=== PATIENT | female | born 1960 | race Caucasian/White ===

== ENCOUNTER 2016-11-16 14:25 | Inpatient (IN) | payer MEDICARE, MEDICAID ==
[~2016-11-16] VITALS: Ht 167.6 cm; Wt 71.7 kg
[~2016-11-16 14:25] MED LIST: BENZ1TAB7 PO; DOCU-25 PO; FAMO20TA8 PO; HYDR28CR28 TP; HYDR453. TP; PSYL1PAC8 PO
--- NOTE | 2016-11-16 14:46 | NUR ---
DR JO AT BEDSIDE FOR EVAL.
--- NOTE | 2016-11-16 15:05 | NUR ---
BLOOD DRAWN AND SENT TO LAB.
--- NOTE | 2016-11-16 15:10 | NUR ---
UNABLE TO PROVIDE URINE SAMPLE.
[2016-11-16 15:15] LABS: BASOPHILS # (AUTO) 0.1 /CMM (0.0-0.2); BASOPHILS % (AUTO) 0.9 % (0.0-2.0); EOSINOPHILS % (AUTO) 0.5 % (0.0-6.0); HEMATOCRIT 42 % (33-45); HEMOGLOBIN 13.8 g/dL (11.5-14.8); LYMPHOCYTES # (AUTO) 2.6 /CMM (0.8-4.8); LYMPHOCYTES % (AUTO) 27.6 % (20.0-44.0); MEAN CORPUSCULAR HEMOGLOBIN 29 PG (26.0-33.0); MEAN CORPUSCULAR HGB CONC 33 g/dl (31.0-36.0); MEAN CORPUSCULAR VOLUME 88 fL (82-100); MONOCYTES # (AUTO) 1.2 /CMM (0.1-1.30); MONOCYTES % (AUTO) 12.7 % (2.0-12.0); NEUTROPHILS # (AUTO) 5.6 /CMM (1.8-8.9); NEUTROPHILS % (AUTO) 58.3 % (43.0-81.0); PLATELET COUNT (AUTO) 242 /CMM (150-450); RDW COEFFICIENT OF VARIATION 13.1 (11.5-15.0); RED BLOOD CELL COUNT(AUTO) 4.76 MIL/uL (4.0-5.2); WHITE BLOOD COUNT (AUTO) 9.5 K/uL (4.3-11.0)
[2016-11-16 15:24] LABS: CALCIUM, SERUM 9.7 mg/dL (8.5-10.1); CARBON DIOXIDE 22 mmol/L (21-32); CHLORIDE 103 mmol/L (98-107); CREATININE 0.9 mg/dL (0.6-1.3); GFR 65 mL/min (>60); GLUCOSE 97 mg/dL (74-106); POTASSIUM 3.8 mmol/L (3.5-5.1); SODIUM SERUM 141 mmol/L (136-145); UREA NITROGEN, BLOOD 24 mg/dL (7-18)
[2016-11-16 15:29] LABS: ALANINE AMINOTRANSFERASE 77 U/L (12-78); ALBUMIN 4.4 g/dL (3.4-5.0); ALKALINE PHOSPHATASE 84 U/L (46-116); ASPARTATE AMINOTRANSFERASE 46 U/L (15-37); BILIRUBIN,DIRECT 0.2 mg/dL (0.0-0.2); BILIRUBIN,TOTAL 0.9 mg/dL (0.2-1.0); SALICYLATE 2.8 mg/dL (2.8-20.0); TOTAL PROTEIN, SERUM 8.4 g/dL (6.4-8.2)
--- NOTE | 2016-11-16 15:29 | NUR ---
CALLED NURSING SUP. FOR GPS BED
[2016-11-16] MEDS ORDERED: LORAZEPAM INJ 2 MG/ML VIAL IM ONE (15:30)
[2016-11-16] MEDS ORDERED: HALOPERIDOL LACTATE INJ 5 MG/ML VIAL IM ONE (15:30)
[2016-11-16] MEDS ORDERED: diphenhydrAMINE HCL 50 MG/ML VIAL IM ONE (15:30)
[2016-11-16 15:31] LABS: ACETAMINOPHEN 0 ug/ml (10-30); ALCOHOL, BLOOD < 3 mg/dL (0-0)
--- NOTE | 2016-11-16 15:55 | NUR ---
REPORT GIVEN TO EDWARDO. PT AWAITING TRANSFER TO FLOOR.
[2016-11-16 16:01] LABS: APPEARANCE,URINE Slightly Cloudy (CLEAR); BLOOD, URINE Negative Ery/uL (NEGATIVE); COLOR,URINE Dark (YELLOW); KETONES,URINE 15 (NEGATIVE); LEUKOCYTE ESTERASE ,URINE Negative (NEGATIVE); NITRITE, URINE Negative (NEGATIVE); PROTEIN,URINE Trace mg/dl (NEGATIVE); UGLUCOSE Negative (NEGATIVE); UROBILINOGEN,URINE 0.2 EU/dL (0.2)
[2016-11-16 16:02] LABS: BILIRUBIN,URINE SMALL (NEGATIVE)
[2016-11-16 16:05] LABS: ADD URINE CULTURE NO; BACTERIA,URINE Few /HPF (None Seen); RBC,URINE 0-2 /HPF (0-2); SQUAMOUS EPITHELIAL CELL,UR Few /HPF (None Seen)
[2016-11-16 16:12] LABS: CANNABINOID, URINE NEGATIVE (NEGATIVE); PHENCYCLIDINE SCREEN,URINE NEGATIVE (NEGATIVE)
[2016-11-16] MEDS ORDERED: THIO10TA PO (16:16)
[2016-11-16] MEDS ORDERED: LITH300T3 PO (16:16)
--- NOTE | 2016-11-16 17:20 | NUR ---
GPS RN NOTE: PT 56 Y/O FEMALE ADMITTED ON 5150 FOR DTS,GD PER HOLD PATIENT BROUGHT IN ER FOR EVAL CO NON COMPLIANT FOR 2 MONTHS PT SUICIDAL PATIENT STATED"I WANT TO JUMP OFF A BRIDGE LAPD WENT TO [facility] APARTMENT WHEN SHE TRIED USING KNIFE TO FIX HER SHOULDERS " PER F/F ASSESSMENT PATIENT DELUSIONAL, DISORGANIZED NOT MAKING SENSE ,ADMITTING SI TO JUMP OFF THE BRIDGE, DR GANDHI AND DR DE LA TORRE NOTIFIED WITH ORDERS, PATIENT APPEARANCE UNKEPT NEEDS SHOWER, WILL INDORSE TO INCOMING SHIFT TR FOR COMPLETION AND CONTINUATION OF CARE
[2016-11-16] MEDS ORDERED: ACETAMINOPHEN 325 MG TABLET PO PRN (17:30)
[2016-11-16] MEDS ORDERED: MAG HYDROX/AL HYDROX/SIMETH 30 ML UDC PO PRN (17:30)
[2016-11-16 17:38] VITALS: BP 136/75
[2016-11-16 20:25] VITALS: BP 99/70
[2016-11-16 20:27] VITALS: BP 141/80
[2016-11-16 20:29] VITALS: BP 141/76
[2016-11-17 08:00] VITALS: BP 96/61
[2016-11-17] MEDS: DOCUSATE SODIUM 100 MG CAPSULE PO SCH ×2 (08:16→17:04)
[2016-11-17 08:25] LABS: ALBUMIN 4.1 g/dL (3.4-5.0); BILIRUBIN,TOTAL 1.1 mg/dL (0.2-1.0); CALCIUM, SERUM 8.9 mg/dL (8.5-10.1); CREATININE 0.8 mg/dL (0.6-1.3); POTASSIUM 4.2 mmol/L (3.5-5.1)
[2016-11-17] MEDS ORDERED: THIORIDAZINE HCL PO SCH (09:00)
--- NOTE | 2016-11-17 11:30 | NUR ---
[id number]: NOTIFIED QUALITY IMPROVEMENT COORDINATOR NIKKI DE LA TORRE ABOUT LAB RESULTS: CO2= 18, ANION GAP=23, BUN=23, TOTAL BILIRUBIN=1.1, AST= 64, ALT= 93, LDL CHOLESTEROL MEASRD= 129, UR SPECIFIC GRAVITY >1.030, URINE BILIRUBIN=SMALL, URINE WBC= 3-5, LITHIUM= , 0.20. NO NEW ORDERS GIVEN AT THIS TIME
--- NOTE | 2016-11-17 15:27 | NUR ---
Initial Discharge Plan: Patient lives at home alone [address] [address].([phone]). Patient wants to return home upon discharge. SW spoke to patient's Ex-brother in law Cristiano Verma ([phone]) who stated that she had been living with him and patient's sister and than patient got her section 8 housing and got her own apartment. SW will follow-up with MD and patient and help form a safe and proper discharge.
[2016-11-17] MEDS ORDERED: QUETIAPINE FUMARATE 25 MG TABLET PO PRN (16:30)
[2016-11-17 17:28] VITALS: BP 110/64
--- NOTE | 2016-11-17 18:31 | NUR ---
[id number]: NOTIFIED DR. GANDHI ABOUT EKG RESULTS. PENDING RETURN PHONE CALL.
[2016-11-17 20:07] VITALS: BP 125/78
--- NOTE | 2016-11-17 20:17 | NUR ---
GPS RN NOTE: SPOKE TO DR. GANDHI AND NOTIFIED HER ABOUT THE RESULT OF THE EKG. NO NEW ORDER RECEIVED NOTED.
[2016-11-17] MEDS ORDERED: LITHIUM CARBONATE (300 MG CAP) 300 MG CAPSULE PO SCH (21:00)
[2016-11-17] MEDS: LITHIUM CARBONATE (300 MG CAP) 300 MG CAPSULE PO SCH (21:34)
[2016-11-17] MEDS ORDERED: QUETIAPINE FUMARATE 25 MG TABLET PO SCH (22:00)
[2016-11-18 07:48] LABS: ALBUMIN 3.9 g/dL (3.4-5.0); BILIRUBIN,DIRECT 0.1 mg/dL (0.0-0.2); BILIRUBIN,TOTAL 0.9 mg/dL (0.2-1.0); CREATININE 0.7 mg/dL (0.6-1.3); POTASSIUM 3.5 mmol/L (3.5-5.1); TOTAL PROTEIN, SERUM 7.6 g/dL (6.4-8.2)
[2016-11-18 08:00] VITALS: BP 109/73
[2016-11-18] MEDS: LITHIUM CARBONATE (300 MG CAP) 300 MG CAPSULE PO SCH ×2 (08:19→09:00)
[2016-11-18] MEDS: DOCUSATE SODIUM 100 MG CAPSULE PO SCH ×3 (08:19→16:34)
[2016-11-18] MEDS: OLANZAPINE 5 MG/TAB.RAPDIS PO SCH ×2 (13:26→16:31)
--- NOTE | 2016-11-18 14:20 | NUR ---
I have reviewed patient's psychosocial assessment and I concur with the information provided. No changes are necessary. Dodie Jordan, [facility] [id number] Addendum: 11/18/16 at 1421 by DODIE JORDAN SW Amended: Links added.
[2016-11-18 16:00] VITALS: BP 110/66
--- NOTE | 2016-11-18 16:31 | NUR ---
Derrick received a voicemail from [facility] [phone] who wanted to discuss pt's condition and discharge planning. DERRICK will follow up tomorrow. Addendum: 11/19/16 at 1527 by DAVE BETANCUR DERRICK [facility] Hipolito [phone] who wanted an update regarding pt's discharge. DERRICK notified him that a discharge date has not been set yet. Will follow up
[2016-11-18] MEDS ORDERED: OLANZAPINE 5 MG/TAB.RAPDIS PO SCH (17:00)
[2016-11-18 20:00] VITALS: BP 109/95
[2016-11-19 08:00] VITALS: BP 119/84
[2016-11-19] MEDS: DOCUSATE SODIUM 100 MG CAPSULE PO SCH ×2 (08:13→16:28)
[2016-11-19] MEDS ORDERED: LITHIUM CARBONATE (300 MG CAP) 300 MG CAPSULE PO SCH (09:00)
[2016-11-19] MEDS: OLANZAPINE 5 MG/TAB.RAPDIS PO SCH ×2 (09:00→16:46)
[2016-11-19 16:00] VITALS: BP 91/57
[2016-11-19] MEDS: LITHIUM CARBONATE (300 MG CAP) 300 MG CAPSULE PO SCH (16:28)
[2016-11-19] MEDS ORDERED: PETROLATUM,WHITE PACKET 5 GM PACKET TP PRN (16:30)
[2016-11-19] MEDS: BENZTROPINE MESYLATE (1 MG) 1 MG TABLET PO SCH (16:46)
[2016-11-19 20:00] VITALS: BP 98/63
[2016-11-19] MEDS: MAGNESIUM HYDROXIDE 30 ML UDC PO PRN (21:55)
[2016-11-19] MEDS: TEMAZEPAM 7.5 MG CAPSULE PO PRN (22:14)
[2016-11-20 08:00] VITALS: BP 108/71
[2016-11-20] MEDS: LORAZEPAM 0.5 MG TABLET PO PRN ×2 (08:05→14:21)
[2016-11-20] MEDS: DOCUSATE SODIUM 100 MG CAPSULE PO SCH ×2 (08:05→16:30)
[2016-11-20] MEDS: BENZTROPINE MESYLATE (1 MG) 1 MG TABLET PO SCH ×2 (08:05→16:30)
[2016-11-20] MEDS: OLANZAPINE 5 MG/TAB.RAPDIS PO SCH ×2 (08:05→16:30)
[2016-11-20] MEDS: LITHIUM CARBONATE (300 MG CAP) 300 MG CAPSULE PO SCH ×2 (08:05→16:30)
--- NOTE | 2016-11-20 08:05 | NUR ---
administered ativan 0.5 mg po prn for anxiety per patient request, v/s taken bp-110/71, p-77, continued monitoring.
[2016-11-20] MEDS: MAGNESIUM HYDROXIDE 30 ML UDC PO PRN (10:47)
--- NOTE | 2016-11-20 10:48 | NUR ---
[id number] milk of magnesia 30 mg po prn for constipation, encouraged to increase fluid intake, continued monitoring.
--- NOTE | 2016-11-20 14:21 | NUR ---
ADMINISTERED ATIVAN 0.5 MG PO PRN PER PATIENT REQUEST, FOR ANXIETY, V/S TAKEN BP-108/70, P-76, CONTINUED MONITORING.
[2016-11-20 16:00] VITALS: BP 99/65
[2016-11-20 20:00] VITALS: BP 104/69
[2016-11-20] MEDS: TEMAZEPAM 7.5 MG CAPSULE PO PRN (22:00)
[2016-11-21] MEDS: LORAZEPAM 0.5 MG TABLET PO PRN ×3 (02:16→17:06)
[2016-11-21 08:00] VITALS: BP 127/84
[2016-11-21] MEDS: BENZTROPINE MESYLATE (1 MG) 1 MG TABLET PO SCH ×2 (08:59→17:05)
[2016-11-21] MEDS: DOCUSATE SODIUM 100 MG CAPSULE PO SCH ×2 (08:59→17:05)
[2016-11-21] MEDS: OLANZAPINE 5 MG/TAB.RAPDIS PO SCH ×2 (08:59→17:05)
[2016-11-21] MEDS: LITHIUM CARBONATE (300 MG CAP) 300 MG CAPSULE PO SCH ×2 (08:59→17:04)
--- NOTE | 2016-11-21 09:04 | NUR ---
ADMINISTERED ATIVAN 0.5 MG PO PRN FOR ANXIETY, V/S TAKEN BP-127/84, P-71, CONTINUED MONITORING.
[2016-11-21] MEDS ORDERED: BISACODYL SUPP (10 MG) 10 MG/SUPP.RECT SUPP.RECT RC PRN (14:00)
[2016-11-21] MEDS ORDERED: PHENYLEPHRINE/SHK LV/MO/PET,WH 30 GM TUBE RC PRN (14:00)
[2016-11-21] MEDS: PANTOPRAZOLE 40 MG TABLET.DR PO SCH (14:43)
[2016-11-21 16:00] VITALS: BP 100/63
--- NOTE | 2016-11-21 17:09 | NUR ---
ADMINISTERED ATIVAN 0.5 MG PO PRN FOR ANXIETY PER PATIENT REQUEST, V/S TAKE BP-110/53, P-74, ALSO ADMINISTERED PREPARATION OINTMENT FOR CONSTIPATION, CONTINUED MONITORING.
--- NOTE | 2016-11-21 19:38 | NUR ---
GPS/RN NOTE: PATIENT TALKING OVER THE PHONE. APPEARS COMFORTABLE, NO S/S OR PAIN AT THIS TIME.
[2016-11-21 20:08] VITALS: BP 99/72
[2016-11-21] MEDS ORDERED: NICOTINE PATCH (14MG) 14 MG PATCH.TD24 TD ONE (20:59)
[2016-11-21] MEDS: NICOTINE PATCH (14MG) 14 MG PATCH.TD24 TD SCH (21:05)
[2016-11-22] MEDS: TEMAZEPAM 7.5 MG CAPSULE PO PRN ×2 (00:58→23:02)
--- NOTE | 2016-11-22 00:59 | NUR ---
GPS/RN NOTE: PATIENT UNABLE TO SLEEP, REQUESTED FOR HER SLEEPING PILL, TEMAZEPAM 7.5 MG CAP 1 PO GIVEN.
--- NOTE | 2016-11-22 01:00 | NUR ---
GPS/RN NOTE: C/O NECK PAIN, TYLENOL 650 MG TAB PO GIVEN.
[2016-11-22 08:00] VITALS: BP 103/50
[2016-11-22] MEDS: DOCUSATE SODIUM 100 MG CAPSULE PO SCH ×2 (08:36→17:49)
[2016-11-22] MEDS: LITHIUM CARBONATE (300 MG CAP) 300 MG CAPSULE PO SCH ×2 (08:36→17:49)
[2016-11-22] MEDS: PANTOPRAZOLE 40 MG TABLET.DR PO SCH (08:36)
[2016-11-22] MEDS: NICOTINE PATCH (14MG) 14 MG PATCH.TD24 TD SCH (08:36)
[2016-11-22] MEDS: BENZTROPINE MESYLATE (1 MG) 1 MG TABLET PO SCH ×2 (08:36→17:49)
[2016-11-22] MEDS: OLANZAPINE 5 MG/TAB.RAPDIS PO SCH ×2 (08:36→17:50)
--- NOTE | 2016-11-22 14:17 | NUR ---
tire worker attempted to contact patient's case technician Adali / from [facility] for after care planning. tire worker left a detailed message with contact information, tire worker will follow-up.
[2016-11-22 16:00] VITALS: BP 124/78
--- NOTE | 2016-11-22 16:58 | NUR ---
Dolly Operator spoke to Adali ([phone] ext. [phone]) patient's telephonic nurse case manager from [facility] regarding patient's after care. Adali stated that patient has a follow-up appointment scheduled for November at 10:[address] Wright [address] [facility], [place] [address] ([phone]).
[2016-11-22] MEDS: IBUPROFEN 600 MG TABLET PO PRN (17:49)
--- NOTE | 2016-11-22 17:49 | NUR ---
administered motrin 600 mg po prn, chronic generalized pain, encouraged to increase fluid intake
[2016-11-22 19:59] VITALS: BP 134/71
[2016-11-22 20:00] VITALS: BP 134/71
[2016-11-23 07:43] LABS: BASOPHILS % (AUTO) 0.5 % (0.0-2.0); EOSINOPHILS # (AUTO) 0.2 /CMM (0.0-0.7); EOSINOPHILS % (AUTO) 2.9 % (0.0-6.0); HEMATOCRIT 46 % (33-45); HEMOGLOBIN 15.2 g/dL (11.5-14.8); LYMPHOCYTES # (AUTO) 2.7 /CMM (0.8-4.8); LYMPHOCYTES % (AUTO) 44.5 % (20.0-44.0); MEAN CORPUSCULAR HEMOGLOBIN 30 PG (26.0-33.0); MEAN CORPUSCULAR HGB CONC 33 g/dl (31.0-36.0); MEAN CORPUSCULAR VOLUME 90 fL (82-100); MONOCYTES # (AUTO) 0.7 /CMM (0.1-1.30); MONOCYTES % (AUTO) 12.1 % (2.0-12.0); NEUTROPHILS # (AUTO) 2.4 /CMM (1.8-8.9); PLATELET COUNT (AUTO) 197 /CMM (150-450); RDW COEFFICIENT OF VARIATION 13.8 (11.5-15.0); RED BLOOD CELL COUNT(AUTO) 5.09 MIL/uL (4.0-5.2); WHITE BLOOD COUNT (AUTO) 6.1 K/uL (4.3-11.0)
[2016-11-23 07:59] LABS: BILIRUBIN,TOTAL 0.6 mg/dL (0.2-1.0); CALCIUM, SERUM 9.5 mg/dL (8.5-10.1); CREATININE 0.8 mg/dL (0.6-1.3); POTASSIUM 4.1 mmol/L (3.5-5.1)
[2016-11-23] MEDS: BENZTROPINE MESYLATE (1 MG) 1 MG TABLET PO SCH ×2 (08:04→16:42)
[2016-11-23] MEDS: OLANZAPINE 5 MG/TAB.RAPDIS PO SCH ×2 (08:04→16:42)
[2016-11-23] MEDS: DOCUSATE SODIUM 100 MG CAPSULE PO SCH ×2 (08:04→16:42)
[2016-11-23] MEDS: NICOTINE PATCH (14MG) 14 MG PATCH.TD24 TD SCH (08:04)
[2016-11-23] MEDS: PANTOPRAZOLE 40 MG TABLET.DR PO SCH (08:05)
[2016-11-23] MEDS: LITHIUM CARBONATE 150 MG CAPSULE PO SCH ×2 (08:05→22:05)
[2016-11-23 08:39] VITALS: BP 126/60
[2016-11-23] MEDS: LORAZEPAM 0.5 MG TABLET PO PRN (10:48)
[2016-11-23] MEDS: IBUPROFEN 600 MG TABLET PO PRN ×3 (15:07→19:36)
--- NOTE | 2016-11-23 15:51 | NUR ---
workers' compensation hearings officer attempted to contact Adali ([phone] ext. [phone]) patient's gearcase assembler from [facility] ([place], [place]) regarding patient's after care and rescheduling the patient's follow-up appointment for Saturday November 26, 2016. workers' compensation hearings officer will follow-up.
[2016-11-23 16:11] VITALS: BP 108/70
--- NOTE | 2016-11-23 16:11 | NUR ---
irrigation worker spoke to Adali ([phone] ext. [phone]) patient's gearcase assembler from [facility] regarding patient's after care and rescheduling the patient's follow-up appointment for Saturday November 26, 2016. However, Adali stated that Dr. Wright is only available Tuesday' and '. Adali stated that she would call back with the new date and time for the follow-up appointment.
[2016-11-23 21:43] VITALS: BP 105/63
[2016-11-23 22:05] VITALS: BP 105/63
[2016-11-23] MEDS: TEMAZEPAM 7.5 MG CAPSULE PO PRN (22:45)
[2016-11-24] MEDS: LITHIUM CARBONATE 150 MG CAPSULE PO SCH ×2 (08:08→21:21)
[2016-11-24] MEDS: DOCUSATE SODIUM 100 MG CAPSULE PO SCH ×2 (08:08→17:11)
[2016-11-24] MEDS: OLANZAPINE 5 MG/TAB.RAPDIS PO SCH ×2 (08:08→17:12)
[2016-11-24] MEDS: NICOTINE PATCH (14MG) 14 MG PATCH.TD24 TD SCH (08:08)
[2016-11-24] MEDS: BENZTROPINE MESYLATE (1 MG) 1 MG TABLET PO SCH ×2 (08:08→17:11)
[2016-11-24 08:10] VITALS: BP 100/73
[2016-11-24] MEDS: PANTOPRAZOLE 40 MG TABLET.DR PO SCH (08:12)
--- NOTE | 2016-11-24 09:00 | NUR ---
[id number]: PT IS OBSERVED TO BE NEEDY, ANXIOUS, RESTLESS. PT NEEDS CONSTANT REDIRECTION.
[2016-11-24] MEDS ORDERED: LIDOCAINE VISCOUS 2% UD 15 ML UDC MM SCH (12:00)
[2016-11-24] MEDS: CLINDAMYCIN HCL 150 MG CAPSULE PO SCH ×2 (12:20→17:11)
[2016-11-24] MEDS ORDERED: LIDOCAINE VISCOUS 2% UD 15 ML UDC MM PRN (13:00)
--- NOTE | 2016-11-24 14:15 | NUR ---
mission worker informed patient's contact Cristiano Vemra ([phone]) of patient's discharge tomorrow November. Cristiano was agreeable with the discharge plan.
--- NOTE | 2016-11-24 15:23 | NUR ---
explosives worker attempted to contact Adali ([phone] ext. [phone]) patient's porter sample case from [facility] regarding patient's after care appointment. explosives worker left Adali a detailed message with her contact information. explosives worker will follow-up.
[2016-11-24 16:00] VITALS: BP 100/69
[2016-11-24] MEDS: CHLORHEXIDINE GLUCONATE 15 ML UDC MM SCH (17:11)
[2016-11-24 20:25] VITALS: BP 104/65
[2016-11-24] MEDS: LORAZEPAM 0.5 MG TABLET PO PRN (20:42)
[2016-11-24] MEDS ORDERED: HYDROCORTISONE ACETATE 25 MG/SUPP.RECT SUPP.RECT RC SCH (22:00)
[2016-11-24] MEDS ORDERED: PHENYLEPHRINE/SHARK LIVER 1 EA SUPP.RECT RC SCH (22:00)
[2016-11-24] MEDS: TEMAZEPAM 7.5 MG CAPSULE PO PRN (22:28)
[2016-11-25 08:00] VITALS: BP 110/73
[2016-11-25] MEDS: CHLORHEXIDINE GLUCONATE 15 ML UDC MM SCH (08:13)
[2016-11-25] MEDS: NICOTINE PATCH (14MG) 14 MG PATCH.TD24 TD SCH (08:15)
[2016-11-25] MEDS: OLANZAPINE 5 MG/TAB.RAPDIS PO SCH (08:15)
[2016-11-25] MEDS: DOCUSATE SODIUM 100 MG CAPSULE PO SCH (08:15)
[2016-11-25] MEDS: BENZTROPINE MESYLATE (1 MG) 1 MG TABLET PO SCH (08:16)
[2016-11-25] MEDS: PANTOPRAZOLE 40 MG TABLET.DR PO SCH (08:16)
[2016-11-25] MEDS: CLINDAMYCIN HCL 150 MG CAPSULE PO SCH ×2 (08:16→12:11)
[2016-11-25] MEDS: LITHIUM CARBONATE 150 MG CAPSULE PO SCH (09:41)
--- NOTE | 2016-11-25 09:41 | NUR ---
CALLED DR. GANDHI AND NOTIFIED THAT LITHIUM LEVEL RESULT IS PENDING AND SAID TO GIVE THE LITHIUM WITH NO RESULT YET.
--- NOTE | 2016-11-25 15:47 | NUR ---
DR. GANDHI GAVE AN ORDER TO D/C HOME AND D/C HOME. WITHOUT DISTRESS, DENIES SUICIDAL AND HOMICIDAL. TO FOLLOW UP WITH PSYCH AND MEDICAL DOCTORS. JOSELIN MAGDALENO THE MARKETING ANALYST MADE AWARE OF THE DISCHARGE AND SAID OK FOR DISCHARGE AND GAVE PRESCRIPTIONS. MAGALI AVILA AND PT. SIGNED THE DISCHARGE PAPERS.
[2016-11-25 16:00] VITALS: BP 101/62
--- NOTE | 2016-11-25 16:15 | NUR ---
PT. LEFT THE UNIT VIA A TAXI WITH BELONGINGS AND ESCORTED BY STAFF TO THE LOBBY. PT. INSTRUCTED ON MEDS TO CONTINUE AT HOME AND VERBALIZES UNDERSTANDING. PT. ADVISED TO MAKE A FOLLOW UP TO HER PSYCHIATRIST AND MEDICAL DOCTORS AND AGREED. PT. LEFT THE UNIT, AMBULATORY, WITHOUT DISTRESS AND ON STABLE CONDITION. VS/ TAKEN: BP 110/69, ID 71, RR 18, OXYGEN SAT 98% AND TEMP. 98.0.
--- NOTE | 2016-11-26 10:03 | NUR ---
Patient was discharged back home [address] [place] [address] . Via taxi. Patient's contact Cristiano Arias was notified. Patient was agreeable with the discharge plan. Patient's mood and affect were appropriate upon discharge. Patient denied suicidal and homicidal ideations. Patient's caser shoe parts Adali ([phone] ext. [phone]) from [facility] will follow-up with patient regarding her follow-up appointment with Dr. [facility] [address] [facility], [place] [address] ([phone]). Patient also agreed to follow-up with her psychiatrist within 30 days. Facilitated info to IDT team who are in agreement with discharge arrangement. The multidisciplinary exitcare form was done, printed, signed, and given to the patient.
== END 2016-11-25 16:15 | disposition home or self-care (01) | DRG 885 ==
LOC: ER 14:28 → GPS 16:07
PROVIDERS: ADMIT Psychiatry & Neurology Psychosomatic Medicine; ATTEND Contractor
DX: F25.0 Schizoaffective disorder, bipolar type (principal); N17.0 Acute kidney failure with tubular necrosis; F50.2 Bulimia nervosa; F29 Unspecified psychosis not due to a substance or known physiological condition; K21.9 Gastro-esophageal reflux disease without esophagitis; F41.9 Anxiety disorder, unspecified; K59.00 Constipation, unspecified; K64.9 Unspecified hemorrhoids; K76.0 Fatty (change of) liver, not elsewhere classified; R74.0 Nonspecific elevation of levels of transaminase and lactic acid dehydrogenase [LDH]; F43.10 Post-traumatic stress disorder, unspecified; F19.90 Other psychoactive substance use, unspecified, uncomplicated; K05.10 Chronic gingivitis, plaque induced; Z86.59 Personal history of other mental and behavioral disorders
CPT/HCPCS: 36415; 76700-TC; 80048-TC; 80053-TC; 80061-TC; 80076-TC; 80305; 81000-TC; 85025-TC; 87081-TC; A4606; G0480; G6039-TC; Z7610

== ENCOUNTER 2017-05-01 19:59 | Emergency (ER) | payer MEDICARE, MEDICAID ==
[~2017-05-01] VITALS: Ht 167.6 cm; Wt 77.1 kg
[~2017-05-01 19:59] MED LIST changes: -BENZ1TAB7 PO; -FAMO20TA8 PO; -HYDR28CR28 TP; -HYDR453. TP; +LITH300T3 PO; -PSYL1PAC8 PO; +THIO10TA PO
--- NOTE | 2017-05-01 20:03 | NUR ---
PT BIBRA FROM HOME TO ER BED 16. PT IS AGITATED, ACTING BELLIGERENT. C/O A SPIDER BITE. GOWNED AND PLACED ON MONITOR. STATBLE VITALS. AWAITING MD ZUÑIGA.
--- NOTE | 2017-05-01 20:07 | NUR ---
DR JOE AT BEDSIDE FOR EVAL.
--- NOTE | 2017-05-01 20:23 | NUR ---
BRAKESHOE REPAIRER AT BEDSIDE FOR BLOOD DRAW.
[2017-05-01 20:43] LABS: CALCIUM, SERUM 9.5 mg/dL (8.5-10.1); CARBON DIOXIDE 21 mmol/L (21-32); CHLORIDE 106 mmol/L (98-107); CREATININE 1.5 mg/dL (0.6-1.3); GLUCOSE 102 mg/dL (74-106); POTASSIUM 4.2 mmol/L (3.5-5.1); SODIUM SERUM 144 mmol/L (136-145); UREA NITROGEN, BLOOD 32 mg/dL (7-18)
[2017-05-01 20:48] LABS: BASOPHILS % (AUTO) 0.3 % (0.0-2.0); EOSINOPHILS % (AUTO) 0.3 % (0.0-6.0); HEMATOCRIT 40 % (33-45); HEMOGLOBIN 13.4 g/dL (11.5-14.8); LYMPHOCYTES # (AUTO) 2.5 /CMM (0.8-4.8); LYMPHOCYTES % (AUTO) 23.1 % (20.0-44.0); MEAN CORPUSCULAR HEMOGLOBIN 30 PG (26.0-33.0); MEAN CORPUSCULAR HGB CONC 33 g/dl (31.0-36.0); MEAN CORPUSCULAR VOLUME 90 fL (82-100); MONOCYTES # (AUTO) 1.2 /CMM (0.1-1.30); MONOCYTES % (AUTO) 10.9 % (2.0-12.0); NEUTROPHILS # (AUTO) 7.1 /CMM (1.8-8.9); NEUTROPHILS % (AUTO) 65.4 % (43.0-81.0); PLATELET COUNT (AUTO) 250 /CMM (150-450); RDW COEFFICIENT OF VARIATION 13.7 (11.5-15.0); RED BLOOD CELL COUNT(AUTO) 4.47 MIL/uL (4.0-5.2); WHITE BLOOD COUNT (AUTO) 10.9 K/uL (4.3-11.0)
[2017-05-01 20:50] LABS: ALANINE AMINOTRANSFERASE 69 U/L (12-78); ALBUMIN 4.6 g/dL (3.4-5.0); ALCOHOL, BLOOD < 3 mg/dL (0-0); ALKALINE PHOSPHATASE 74 U/L (46-116); ASPARTATE AMINOTRANSFERASE 42 U/L (15-37); BILIRUBIN,DIRECT 0.2 mg/dL (0.0-0.2); BILIRUBIN,TOTAL 0.7 mg/dL (0.2-1.0); SALICYLATE 3.1 mg/dL (2.8-20.0); TOTAL PROTEIN, SERUM 8.4 g/dL (6.4-8.2)
[2017-05-01 21:54] LABS: ACETAMINOPHEN < 2 ug/ml (10-30)
[2017-05-01 22:41] LABS: CREATINE KINASE MB 7.1 ng/mL (0-3.6)
--- NOTE | 2017-05-01 23:29 | NUR ---
REPORT TO CHARGE NURSE LYDIA FOR ALETA.
[2017-05-02 06:37] VITALS: BP 107/54
== END 2017-05-02 06:38 | disposition home or self-care (01) ==
LOC: ER 20:01
DX: R41.82 Altered mental status, unspecified (principal); F29 Unspecified psychosis not due to a substance or known physiological condition; N28.9 Disorder of kidney and ureter, unspecified; F31.9 Bipolar disorder, unspecified; J43.9 Emphysema, unspecified; M19.90 Unspecified osteoarthritis, unspecified site; F17.200 Nicotine dependence, unspecified, uncomplicated; Z88.8 Allergy status to other drugs, medicaments and biological substances
CPT/HCPCS: 36415; 80048; 80076; 80329; 82550; 82553; 85025; 99284; A4606; G0480 ×2; J1200; J1630; J2060; J7030 ×2; Z7610

== ENCOUNTER 2018-08-27 16:03 | Inpatient (IN) | payer MEDICARE, MEDICAID ==
[~2018-08-27] VITALS: Ht 165.1 cm; Wt 65.8 kg
[~2018-08-27 16:03] MED LIST changes: -DOCU-25 PO; +HYDR25CA PO; -LITH300T3 PO; -THIO10TA PO
[2018-08-27 16:45] LABS: APPEARANCE,URINE Clear (CLEAR); BILIRUBIN,URINE Negative (NEGATIVE); BLOOD, URINE Negative Ery/uL (NEGATIVE); COLOR,URINE Yellow (YELLOW); KETONES,URINE Negative (NEGATIVE); LEUKOCYTE ESTERASE ,URINE Negative (NEGATIVE); NITRITE, URINE Negative (NEGATIVE); PROTEIN,URINE Negative (NEGATIVE); UGLUCOSE Negative (NEGATIVE); UROBILINOGEN,URINE 0.2 EU/dL (0.2)
[2018-08-27 16:58] LABS: BASOPHILS # (AUTO) 0.1 /CMM (0.0-0.2); BASOPHILS % (AUTO) 0.7 % (0.0-2.0); EOSINOPHILS % (AUTO) 9.1 % (0.0-6.0); HEMATOCRIT 42 % (33-45); HEMOGLOBIN 13.9 g/dL (11.5-14.8); LYMPHOCYTES % (AUTO) 39.3 % (20.0-44.0); MEAN CORPUSCULAR HGB CONC 33 g/dl (31.0-36.0); MEAN CORPUSCULAR VOLUME 93 fL (82-100); MONOCYTES # (AUTO) 0.9 /CMM (0.1-1.30); MONOCYTES % (AUTO) 11.9 % (2.0-12.0); PLATELET COUNT (AUTO) 259 /CMM (150-450); RED BLOOD CELL COUNT(AUTO) 4.46 MIL/uL (4.0-5.2); WHITE BLOOD COUNT (AUTO) 7.6 K/uL (4.3-11.0)
--- NOTE | 2018-08-27 17:00 | NUR ---
Status quo NO obvious distress. cooperative and compliant - Made aware of plan of care. Await admission
[2018-08-27 17:08] LABS: CALCIUM, SERUM 9.4 mg/dL (8.5-10.1); CARBON DIOXIDE 27 mmol/L (21-32); CHLORIDE 102 mmol/L (98-107); CREATININE 0.7 mg/dL (0.6-1.3); GLUCOSE 100 mg/dL (74-106); POTASSIUM 4.5 mmol/L (3.5-5.1); SODIUM SERUM 138 mmol/L (136-145); UREA NITROGEN, BLOOD 31 mg/dL (7-18)
[2018-08-27 17:13] LABS: ALANINE AMINOTRANSFERASE 39 U/L (12-78); ALBUMIN 3.9 g/dL (3.4-5.0); ALCOHOL, BLOOD < 3 mg/dL (0-0); ALKALINE PHOSPHATASE 74 U/L (46-116); ASPARTATE AMINOTRANSFERASE 19 U/L (15-37); BILIRUBIN,TOTAL 0.1 mg/dL (0.2-1.0); TOTAL PROTEIN, SERUM 7.8 g/dL (6.4-8.2)
[2018-08-27 17:14] LABS: ACETAMINOPHEN 0 ug/ml (10-30); SALICYLATE 1.8 mg/dL (2.8-20.0)
[2018-08-27] MEDS ORDERED: ONDA4TAB5 PO (17:20)
[2018-08-27] MEDS ORDERED: QUET50TA PO (17:20)
[2018-08-27] MEDS ORDERED: CARB100T19 PO (17:20)
--- NOTE | 2018-08-27 19:09 | NUR ---
RECIEVED REPORT FROM FRANKIE SARAH FOR ALETA. PT RESTING IN BED WITH NO S/S OF ACUTE DISTRESS NOTED. WILL CONTINUE TO MONITOR PT FOR COMFORT AND SAFETY. PT ON MOBILE APPLICATION DEVELOPER AND POX.
--- NOTE | 2018-08-27 19:33 | NUR ---
REPORT GIVEN TO KIRA MORAES FOR ALETA
--- NOTE | 2018-08-27 20:00 | NUR ---
ADMITTED A 57 Y/O FROM HOME AND EVALUATED FROM [facility] ER, VOLUNTARY STATUS, PATIENT C/O FEELING DEPRESSED AND SUICIDAL IDEATION WITH PLAN TO CUT WRIST. PATIENT ADMITTING DX OF PSYCHOSIS AND MEDICAL DX. ARTHRITIS,SCOLIOSIS, EMPHYSEMA. UPON FACE TO FACE EVALUATION, PATIENT APPEARED ALERT AND ORIENTED X 4, COOPERATIVE, BLUNTED, VERBALIZED DEPRESSION AND SUICIDAL IDEATION WITH PLAN TO CUT WRIST. PATIENT CONTRACTED FOR SAFETY. PATIENT DENIES HI,AH,VH. NO SOB, NO ACUTE DISTRESS, BREATHING EVEN AND UNLABORED, NO S/S OF PAIN AND DISCOMFORT. HEAD TO TOE ASSESSMENT DONE. PICTURE DONE. PATIENT SIGNED CONSENTS. BELONGINGS COLLECTED FOR CONTRABAND SAFETY. SNACK PROVIDED AND PATIENT APPRECIATED. ALL NEEDS ATTENDED AND MET. NOTIFIED DR. COLON OF THE ADMISSION. WILL CONTINUE TO MONITOR [id number] FOR SAFETY
[2018-08-27] MEDS ORDERED: MAGNESIUM HYDROXIDE 30 ML UDC PO PRN (21:00)
[2018-08-27] MEDS ORDERED: ACETAMINOPHEN 325 MG TABLET PO PRN (21:00)
[2018-08-27] MEDS ORDERED: MAG HYDROX/AL HYDROX/SIMETH 30 ML UDC PO PRN (21:00)
[2018-08-27 23:25] VITALS: BP 105/63
[2018-08-28] MEDS: TEMAZEPAM 7.5 MG CAPSULE PO PRN ×2 (00:13→21:32)
--- NOTE | 2018-08-28 06:22 | NUR ---
GPS RN NOTE: NOTIFIED JOSELIN MAGDALENO TO RECONCILE MEDICATION. LEFT MESSAGE TO JUANI HARRIS (PERSON TO NOTIFY) REGARDING THE PATIENT
[2018-08-28 07:13] LABS: CREATININE 0.7 mg/dL (0.6-1.3)
[2018-08-28 07:34] LABS: CHOLESTEROL 155 mg/dL (<200); HDL CHOLESTEROL 59 mg/dL (40-60); LDL 86 mg/dL (0-99); TRIGLYCERIDES 78 mg/dL (30-150)
[2018-08-28 08:00] VITALS: BP 99/57
[2018-08-28] MEDS: NICOTINE PATCH (21MG) 21 MG PATCH.TD24 TD SCH (08:41)
[2018-08-28 16:00] VITALS: BP 100/59
--- NOTE | 2018-08-28 16:17 | NUR ---
SW called Cristiano ([phone]), pt's ex brother in law, and he stated that he does not want to be involved with her treatment.
--- NOTE | 2018-08-28 16:18 | NUR ---
Pt called Bernardo ([phone]), pt's friend, and he stated that he has not had much contact with the pt for years so he would not be the one to be involved with her treatment.
--- NOTE | 2018-08-28 16:19 | NUR ---
Initial Discharge Plan: Pt currently lives alone in an apartment that was arranged by [facility] located at [address] [place], [place] [address], [address], [place], [place] [address]; ([phone]). Per pt, she would like to return to her home. SW will continue to work with the pt and the MD regarding appropriate discharge planning. SW will form a safe and proper discharge.
[2018-08-28] MEDS: OXCARBAZEPINE 150 MG TABLET PO SCH (16:45)
[2018-08-28] MEDS ORDERED: ONDANSETRON 4 MG TAB.RAPDIS PO PRN (18:00)
[2018-08-28 20:10] VITALS: BP 96/59
[2018-08-28] MEDS ORDERED: QUETIAPINE FUMARATE 100 MG TABLET PO SCH (22:00)
[2018-08-29 08:00] VITALS: BP 100/61
[2018-08-29] MEDS: CARBAMAZEPINE 100 MG TAB.CHEW PO SCH ×2 (09:11→17:13)
[2018-08-29] MEDS: OXCARBAZEPINE 150 MG TABLET PO SCH ×2 (09:11→17:12)
[2018-08-29] MEDS: NICOTINE PATCH (21MG) 21 MG PATCH.TD24 TD SCH (09:11)
--- NOTE | 2018-08-29 14:15 | NUR ---
Hipolito ([phone]), spring encaser at [facility], called the SW and inquired about the pt. He stated that he would like to know when the pt is discharging and what her behavior is like at the time of discharge. SW stated that we will not be discharging her if she is not safe to be discharged.
[2018-08-29 16:00] VITALS: BP 99/63
--- NOTE | 2018-08-29 16:04 | NUR ---
Pt's case repairer at [facility], Adali ([phone]), stated that the pt can return to her home once she is considered stable to be discharged from the hospital.
[2018-08-29 20:00] VITALS: BP 106/65
[2018-08-29 20:32] VITALS: BP 109/65
[2018-08-29] MEDS: TEMAZEPAM 7.5 MG CAPSULE PO PRN (21:24)
[2018-08-29] MEDS: QUETIAPINE FUMARATE 100 MG TABLET PO SCH (21:24)
[2018-08-30 08:00] VITALS: BP 100/65
[2018-08-30] MEDS: LORAZEPAM 0.5 MG TABLET PO PRN (10:11)
[2018-08-30] MEDS: OXCARBAZEPINE 150 MG TABLET PO SCH ×2 (10:11→17:08)
[2018-08-30] MEDS: CARBAMAZEPINE 100 MG TAB.CHEW PO SCH ×2 (10:11→17:08)
[2018-08-30] MEDS: NICOTINE PATCH (21MG) 21 MG PATCH.TD24 TD SCH (10:12)
[2018-08-30 16:00] VITALS: BP 120/76
--- NOTE | 2018-08-30 16:11 | NUR ---
Group Note: Pt attended a group session on 08/30/18 at 11AM discussing the topic of what memory resonates the most with them in their life and why it does. S: Pt stated, My mother was bipolar and was always in and out of the hospital. That caused so much stress on my father that he was unable to take care of us properly. So my sister and I ended up in foster care and that has made me who I am today. O: Pt was present during the group session and was cooperative. Pt appeared to be in a euthymic mood and presented with a calm affect. Pt appeared to be comfortable and spoke openly about her life. Pt was hyper verbal and interrupted her peers at times and had to be redirected. A: Pt understood that her past with her mother has affected her and her opinion about her own hospitalization. She stated that family was important to her and she just wanted to be with her immediate family but that situation was not always safe. P: Pt will continue milieu treatment and medication stabilization.
--- NOTE | 2018-08-30 19:20 | NUR ---
GPS/RN OPENING NOTES RECEIVED PATIENT , MONITORING FOR ANY BEHAVIOR CHANGES, RECEIVE ENDORSEMENT FROM AM RN FOR ALETA, WILL MONITOR.
[2018-08-30 20:00] VITALS: BP 95/59
[2018-08-30 20:22] VITALS: BP 95/59
[2018-08-30] MEDS: QUETIAPINE FUMARATE 100 MG TABLET PO SCH (22:00)
--- NOTE | 2018-08-31 07:22 | NUR ---
GPS/RN NOTES PATIENT REPORTED FEELING DROWSY AND WANTED TO SLEEP, U, RESTING AND SLEEPING.NOT GIVEN MEDICATION SCHEDULED SEROQUEL. PATIENT REFUSE TO TAKE ANY PILL AT THIS TIME.
[2018-08-31 08:00] VITALS: BP 115/70
[2018-08-31] MEDS: OXCARBAZEPINE 150 MG TABLET PO SCH ×2 (08:42→16:53)
[2018-08-31] MEDS: NICOTINE PATCH (21MG) 21 MG PATCH.TD24 TD SCH (08:42)
[2018-08-31] MEDS: CARBAMAZEPINE 100 MG TAB.CHEW PO SCH ×2 (08:42→16:53)
--- NOTE | 2018-08-31 14:17 | NUR ---
GYPSY called Hipolito ([phone]), telehealth case manager at [facility], and left a message on his voicemail stating that the pt will be discharged on either Tuesday or Tuesday of the following week.
[2018-08-31 16:02] VITALS: BP 100/63
--- NOTE | 2018-08-31 16:16 | NUR ---
DR. COLON GAVE AN ORDER TO CHANGE SERVICE TO DR. GANDHI.
[2018-08-31 20:00] VITALS: BP 102/63
[2018-08-31] MEDS: TEMAZEPAM 7.5 MG CAPSULE PO PRN (21:27)
[2018-08-31] MEDS ORDERED: QUETIAPINE FUMARATE 100 MG TABLET ONE (22:05)
[2018-08-31] MEDS: QUETIAPINE FUMARATE 100 MG TABLET PO SCH (22:12)
--- NOTE | 2018-08-31 22:47 | NUR ---
REFUSED TO TAKE 3 TABS OF SEROQUEL, (300 MG). STATED," I ONLY TAKE 1 SEROQUEL EXPLAINED TO HER THE BENEFITS X2, STILL REFUSE TO TAKE THE 2 TABS (200 MG).
--- NOTE | 2018-09-01 06:50 | NUR ---
LATEST BP 135/89, HR 68
[2018-09-01 08:00] VITALS: BP 99/71
[2018-09-01] MEDS: OXCARBAZEPINE 150 MG TABLET PO SCH ×2 (08:15→16:28)
[2018-09-01] MEDS: CARBAMAZEPINE 100 MG TAB.CHEW PO SCH ×2 (08:16→16:28)
[2018-09-01] MEDS: NICOTINE PATCH (21MG) 21 MG PATCH.TD24 TD SCH (08:16)
--- NOTE | 2018-09-01 14:46 | NUR ---
GYPSY conducted a substance abuse intervention with the pt due to her history of alcohol and drug use.
[2018-09-01 16:00] VITALS: BP 122/75
[2018-09-01 20:00] VITALS: BP 130/80
[2018-09-01] MEDS: QUETIAPINE FUMARATE 100 MG TABLET PO SCH (21:26)
[2018-09-01] MEDS: TEMAZEPAM 7.5 MG CAPSULE PO PRN (21:26)
[2018-09-02 09:38] LABS: BASOPHILS # (AUTO) 0.1 /CMM (0.0-0.2); BASOPHILS % (AUTO) 0.7 % (0.0-2.0); EOSINOPHILS % (AUTO) 6.5 % (0.0-6.0); HEMATOCRIT 41 % (33-45); HEMOGLOBIN 13.4 g/dL (11.5-14.8); LYMPHOCYTES % (AUTO) 42.3 % (20.0-44.0); MEAN CORPUSCULAR HGB CONC 33 g/dl (31.0-36.0); MEAN CORPUSCULAR VOLUME 93 fL (82-100); MONOCYTES # (AUTO) 0.8 /CMM (0.1-1.30); MONOCYTES % (AUTO) 10.5 % (2.0-12.0); NEUTROPHILS # (AUTO) 2.9 /CMM (1.8-8.9); PLATELET COUNT (AUTO) 247 /CMM (150-450); RED BLOOD CELL COUNT(AUTO) 4.39 MIL/uL (4.0-5.2); WHITE BLOOD COUNT (AUTO) 7.2 K/uL (4.3-11.0)
[2018-09-02] MEDS: OXCARBAZEPINE 150 MG TABLET PO SCH ×2 (09:46→17:10)
[2018-09-02] MEDS: NICOTINE PATCH (21MG) 21 MG PATCH.TD24 TD SCH (09:46)
[2018-09-02] MEDS: CARBAMAZEPINE 100 MG TAB.CHEW PO SCH ×2 (09:46→17:10)
[2018-09-02 09:58] LABS: ALBUMIN 3.7 g/dL (3.4-5.0); BILIRUBIN,TOTAL 0.2 mg/dL (0.2-1.0); CALCIUM, SERUM 9.4 mg/dL (8.5-10.1); CARBAMAZEPINE (TEGRETOL) 5.7 ug/ml (4-11.9); CREATININE 0.7 mg/dL (0.6-1.3); POTASSIUM 3.7 mmol/L (3.5-5.1); TOTAL PROTEIN, SERUM 7.3 g/dL (6.4-8.2)
[2018-09-02 16:00] VITALS: BP 117/77
--- NOTE | 2018-09-02 19:42 | NUR ---
GPS/RN OPENING NOTES RECEIVED PATIENT AWAKE, TALKING TO ROOM MATE, MONITORING FOR ANY CHANGES IN BEHAVIOR, RESPIRATIONS EVEN AND UNLABORED, SKIN WARM TO TOUCH, RECEIVED ENDORSEMENT FROM AM RN FOR ALETA.
[2018-09-02 20:00] VITALS: BP 136/68
[2018-09-02] MEDS: QUETIAPINE FUMARATE 100 MG TABLET PO SCH (21:32)
[2018-09-03 08:00] VITALS: BP 107/63
[2018-09-03] MEDS: OXCARBAZEPINE 150 MG TABLET PO SCH ×2 (09:05→17:18)
[2018-09-03] MEDS: NICOTINE PATCH (21MG) 21 MG PATCH.TD24 TD SCH (09:05)
[2018-09-03] MEDS: CARBAMAZEPINE 100 MG TAB.CHEW PO SCH ×2 (09:05→17:18)
[2018-09-03 16:00] VITALS: BP 113/68
[2018-09-03] MEDS: LORAZEPAM 0.5 MG TABLET PO PRN (17:18)
--- NOTE | 2018-09-03 17:18 | NUR ---
RN NOTES ADMINISTERED ATIVAN 0.5 MG PO PRN FOR ANXIETY, IRRITABLE, PARANOIA, V/S TAKEN BP-113/65, P-74, CONTINUED MONITORING.
[2018-09-03 20:10] VITALS: BP 113/70
[2018-09-03] MEDS: QUETIAPINE FUMARATE 100 MG TABLET PO SCH (21:08)
[2018-09-04] MEDS: TEMAZEPAM 7.5 MG CAPSULE PO PRN (01:03)
[2018-09-04 08:00] VITALS: BP 113/67
[2018-09-04] MEDS: OXCARBAZEPINE 150 MG TABLET PO SCH ×2 (09:11→16:14)
[2018-09-04] MEDS: CARBAMAZEPINE 100 MG TAB.CHEW PO SCH (09:11)
[2018-09-04] MEDS: NICOTINE PATCH (21MG) 21 MG PATCH.TD24 TD SCH (09:11)
[2018-09-04 16:00] VITALS: BP 120/72
[2018-09-04] MEDS ORDERED: IPRATROPIUM NEB FS 0.5 MG/2.5 ML AMPUL.NEB NEB SCH (17:00)
[2018-09-04] MEDS ORDERED: PHENYLEPHRINE/SHARK LIVER 1 EA SUPP.RECT RC PRN (17:00)
[2018-09-04] MEDS ORDERED: NAPROXEN 500 MG TABLET PO PRN (17:00)
[2018-09-04] MEDS: DOCUSATE SODIUM 100 MG CAPSULE PO SCH (17:00)
[2018-09-04] MEDS: PANTOPRAZOLE 40 MG TABLET.DR PO SCH (17:13)
[2018-09-04 20:00] VITALS: BP 107/80
[2018-09-04] MEDS: QUETIAPINE FUMARATE 100 MG TABLET PO SCH (21:55)
[2018-09-05] MEDS: TEMAZEPAM 7.5 MG CAPSULE PO PRN (00:27)
[2018-09-05] MEDS: LORAZEPAM 0.5 MG TABLET PO PRN (02:51)
[2018-09-05 08:00] VITALS: BP 100/65
[2018-09-05] MEDS: OXCARBAZEPINE 150 MG TABLET PO SCH (08:27)
[2018-09-05] MEDS: DOCUSATE SODIUM 100 MG CAPSULE PO SCH (08:27)
[2018-09-05] MEDS: PANTOPRAZOLE 40 MG TABLET.DR PO SCH (08:27)
[2018-09-05] MEDS: NICOTINE PATCH (21MG) 21 MG PATCH.TD24 TD SCH (08:27)
--- NOTE | 2018-09-05 11:57 | NUR ---
GYPSY called Hipolito ([phone]), case manager specialist at [facility], and informed him that the pt is being discharged back to her home today around 3pm. He stated that was an appropriate time and that he will be following up with her.
--- NOTE | 2018-09-05 15:36 | NUR ---
GPS PACKAGE DELIVERY ROOM SERVICE RUNNER NOTE; [place] [address], [address] [place] [address] VIA TAXI. PT IN STABLE CONDITION NO S/S DISTRESS NOTED, PT DENIES SI/HI, STATED " IM FEELING BETTER" VSS, DR GANDHI NOTIFIED , PRESCRIPTION GIVEN, EXPLAIN , EXIT CARE DONE , PRINTED SIGN AND GIVEN TO PT. SKIN CHECKED PICTURE PLACED IN THE CHART. ALL BELONGINGS AND VALUABLES GIVEN TO PT.
--- NOTE | 2018-09-05 16:05 | NUR ---
Discharge Note: Pt was discharged home to [address] [facility], [address], [place] [address]; ([phone]). Pt was transported via taxi at 3:00PM. Pts case maker, Hipolito ([phone]), was made aware of this discharge. Upon discharge, the pt appeared to be in a euthymic mood and presented with a manic affect. Pt was hyperverbal and was not redirectable. Pt denied both suicidal and homicidal ideation as well as auditory and visual hallucinations. Pt was provided with substance abuse and smoking cessation referrals upon discharge that are listed below. Pt and her case maker were told to schedule a psychiatrist appointment within the first week of discharge with her psychiatrist, Dr. Radu Wright ([facility]) [place] [address] [place] [address]; and the SW faxed her discharge clinical to [phone] for him. Pt will also follow up with an oyster preparer at [facility] [place] at [address] [facility] [address], [place] [address]; . Substance Abuse Referrals: [facility] [address] [place] [address] Tel. [facility] Provider Mental Health Treatment Tele-dermatology HIV Services Telemedicine Services [place] [address] [place] [address] [facility] [address] [place] [address] Smoking Cessation Referrals: [facility] 800-LUNGUSA [facility] [phone]
--- NOTE | 2018-09-19 15:55 | NUR ---
15 Day Substance Abuse Follow Up: SW called the pt at [phone] and her brother in law answered the phone. SW asked to speak to the pt and he stated that she lost her phone and he does not know how to contact her. SW asked him to give her a call back if he gets a contact number for the pt.
== END 2018-09-05 15:10 | disposition home or self-care (01) | DRG 885 ==
LOC: ER 16:06 → GPS 19:36
PROVIDERS: ADMIT Psychiatry & Neurology Psychosomatic Medicine; ATTEND Psychiatry & Neurology Psychosomatic Medicine
DX: F31.9 Bipolar disorder, unspecified (principal); N18.9 Chronic kidney disease, unspecified; N17.0 Acute kidney failure with tubular necrosis; R45.851 Suicidal ideations; F43.10 Post-traumatic stress disorder, unspecified; F19.90 Other psychoactive substance use, unspecified, uncomplicated; M19.90 Unspecified osteoarthritis, unspecified site; M41.9 Scoliosis, unspecified; Z88.8 Allergy status to other drugs, medicaments and biological substances; Z79.899 Other long term (current) drug therapy; F20.9 Schizophrenia, unspecified; F41.9 Anxiety disorder, unspecified; S90.812A Abrasion, left foot, initial encounter; S70.311A Abrasion, right thigh, initial encounter; V00-Y99 External causes of morbidity; Y92.410 Unspecified street and highway as the place of occurrence of the external cause; I12.9 Hypertensive chronic kidney disease with stage 1 through stage 4 chronic kidney disease, or unspecified chronic kidney disease; Z86.59 Personal history of other mental and behavioral disorders; J43.9 Emphysema, unspecified; F17.200 Nicotine dependence, unspecified, uncomplicated; E86.0 Dehydration; F29 Unspecified psychosis not due to a substance or known physiological condition; K64.9 Unspecified hemorrhoids; K59.00 Constipation, unspecified
CPT/HCPCS: 36415; 80048-TC; 80053-TC; 80061-TC; 80076-TC; 80156-TC; 80305; 81000-TC; 82565-TC; 85025-TC; 87081-TC; G0480

== ENCOUNTER 2018-11-29 22:01 | Inpatient (IN) | payer MEDICARE, MEDICAID ==
[~2018-11-29] VITALS: Ht 167.6 cm; Wt 76.7 kg
[~2018-11-29 22:01] MED LIST changes: +CARB100T19 PO; -HYDR25CA PO; +ONDA4TAB5 PO; +QUET50TA PO
--- NOTE | 2018-11-29 22:53 | NUR ---
STOCK RANCH SUPERVISOR AT BEDSIDE FOR BLOOD DRAW.
[2018-11-29 23:02] LABS: BASOPHILS # (AUTO) 0.1 /CMM (0.0-0.2); BASOPHILS % (AUTO) 0.8 % (0.0-2.0); EOSINOPHILS % (AUTO) 1.7 % (0.0-6.0); HEMATOCRIT 38 % (33-45); HEMOGLOBIN 12.8 g/dL (11.5-14.8); LYMPHOCYTES # (AUTO) 3.4 /CMM (0.8-4.8); LYMPHOCYTES % (AUTO) 51.7 % (20.0-44.0); MEAN CORPUSCULAR HGB CONC 34 g/dl (31.0-36.0); MEAN CORPUSCULAR VOLUME 92 fL (82-100); MONOCYTES # (AUTO) 0.9 /CMM (0.1-1.30); MONOCYTES % (AUTO) 13.7 % (2.0-12.0); NEUTROPHILS # (AUTO) 2.1 /CMM (1.8-8.9); NEUTROPHILS % (AUTO) 32.1 % (43.0-81.0); PLATELET COUNT (AUTO) 283 /CMM (150-450); RED BLOOD CELL COUNT(AUTO) 4.14 MIL/uL (4.0-5.2); WHITE BLOOD COUNT (AUTO) 6.6 K/uL (4.3-11.0)
--- NOTE | 2018-11-29 23:03 | NUR ---
PT AMBULATORY W/ STEADY GAIT TO RESTROOM. URINE OBTAINED & SENT TO LAB.
[2018-11-29 23:07] LABS: CALCIUM, SERUM 9.2 mg/dL (8.5-10.1); CARBON DIOXIDE 36 mmol/L (21-32); CHLORIDE 105 mmol/L (98-107); CREATININE 0.7 mg/dL (0.6-1.3); GLUCOSE 100 mg/dL (74-106); SODIUM SERUM 143 mmol/L (136-145); UREA NITROGEN, BLOOD 16 mg/dL (7-18)
[2018-11-29 23:18] LABS: ACETAMINOPHEN 0 ug/ml (10-30); ALANINE AMINOTRANSFERASE 43 U/L (12-78); ALBUMIN 3.8 g/dL (3.4-5.0); ALCOHOL, BLOOD < 3 mg/dL (0-0); ALKALINE PHOSPHATASE 63 U/L (46-116); ASPARTATE AMINOTRANSFERASE 23 U/L (15-37); BILIRUBIN,DIRECT 0.1 mg/dL (0.0-0.2); BILIRUBIN,TOTAL 0.5 mg/dL (0.2-1.0); TOTAL PROTEIN, SERUM 7.2 g/dL (6.4-8.2)
[2018-11-29 23:54] LABS: APPEARANCE,URINE Slightly Cloudy (CLEAR); BILIRUBIN,URINE Negative (NEGATIVE); BLOOD, URINE Negative Ery/uL (NEGATIVE); COLOR,URINE Dark (YELLOW); KETONES,URINE Negative (NEGATIVE); LEUKOCYTE ESTERASE ,URINE Moderate (NEGATIVE); NITRITE, URINE Negative (NEGATIVE); PROTEIN,URINE Negative (NEGATIVE); UGLUCOSE Negative (NEGATIVE); UROBILINOGEN,URINE 0.2 EU/dL (0.2)
[2018-11-30 00:05] LABS: BACTERIA,URINE Rare /HPF (None Seen); RBC,URINE 0-2 /HPF (0-2); SQUAMOUS EPITHELIAL CELL,UR Moderate /HPF (None Seen)
[2018-11-30 00:21] LABS: MUCUS,URINE Few /LPF (None Seen)
--- NOTE | 2018-11-30 01:05 | NUR ---
PT RESTING IN BED, CALM & COOPERATIVE W/ NAD NOTED.
--- NOTE | 2018-11-30 01:41 | NUR ---
REPORT GIVEN TO FRANKIE MORAES FOR PT ADMISSION MARTI 212-1 ON 5150 HOLD FOR DTS 11/30/18 @0030.
--- NOTE | 2018-11-30 02:30 | NUR ---
ADMITTED 58 Y/O FEMALE FROM HOME, EVALUATED IN THE ER, ON 5150 HOLD, PER HOLD, PATIENT C/O SI WITH A PLAN TO OD. PATIENT ADMITTING DX. DEPRESSION AND MEDICAL DX. OF EMPHYSEMA, SCOLIOSIS AND ARTHRITIS. UPON FACE TO FACE EVALUATION, PATIENT APPEARED ALERT AND ORIENTED X 3, ANXIOUS, DISORGANIZED, COOPERATIVE, VERBALIZED DEPRESSION AND SUICIDAL IDEATION. PER PATIENT SHE IS DEPRESSED BECAUSE HER THROAT HURTS, SHE CANNOT SWALLOW AND SHE LOVES TO EAT. PATIENT DENIES HI/AH/VH AND PER PATIENT, SHE IS DELUSIONAL. SKIN IS INTACT. PATIENT SIGNED THE CONSENT. PATIENT IS UNDER THE CARE OF DR. COLON, ALL ORDERS GIVEN NOTED AND CARRIED OUT. WILL CONTINUE TO MONITOR [id number] FOR SAFETY
[2018-11-30] MEDS ORDERED: MAG HYDROX/AL HYDROX/SIMETH 30 ML UDC PO PRN (03:30)
[2018-11-30] MEDS ORDERED: ACETAMINOPHEN 325 MG TABLET PO PRN (03:30)
[2018-11-30] MEDS ORDERED: MAGNESIUM HYDROXIDE 30 ML UDC PO PRN (03:30)
[2018-11-30 04:32] VITALS: BP 121/75
[2018-11-30] MEDS ORDERED: AMOX875T2 PO (05:17)
[2018-11-30 08:00] VITALS: BP 114/67
[2018-11-30] MEDS ORDERED: OXCA150T5 PO (09:00)
[2018-11-30] MEDS ORDERED: TRAM50TA PO (09:00)
[2018-11-30] MEDS ORDERED: POLY15DR40 EACHEYE (09:00)
[2018-11-30] MEDS ORDERED: TIOT18CA3 IH (09:00)
[2018-11-30] MEDS ORDERED: TRAZ-182 PO (09:00)
[2018-11-30] MEDS ORDERED: NAPR-1009 PO (09:00)
[2018-11-30] MEDS ORDERED: LANS30CA54 PO (09:00)
[2018-11-30] MEDS ORDERED: LIDO30AD10 TP (09:00)
--- NOTE | 2018-11-30 13:57 | NUR ---
Initial Discharge Planning: Pt currently lives in an apartment alone located at [address] [place] [address] [place], [address] [facility], [place] [address]; ([phone]). Per pt, she would like to return to her home. SW will work with the pt and the MD regarding appropriate discharge planning. SW will form a safe and proper discharge.
[2018-11-30] MEDS: IPRATROPIUM NEB FS 0.5 MG/2.5 ML AMPUL.NEB NEB SCH ×2 (14:10→19:30)
--- NOTE | 2018-11-30 14:59 | NUR ---
GROUP NOTE: TOPIC: Discharge Disposition/ lack of insight into mental illness S: "I am here because my payee didn't send me my check so I couldn't get my medication because I don't have money to pay for it." O: Pt was fidgety, hyperverbal and did not maintain eye contact. Pt kept getting up and sitting back down.Pt appeared manic. A: Pt has lack of insight and has not gained awareness of mental illness. Pt blames others for her current hospitalization and does not take responsibility for her actions. This is pts first day in the psych unit. P: Pt will continue milieu treatment and medication compliance to decrease carmelina
[2018-11-30 16:00] VITALS: BP 108/66
--- NOTE | 2018-11-30 17:45 | NUR ---
GPS/RN-NOTES RECEIVED T.O ORDER FROM OF TRILEPTAL 150MG P.O BID, TRAZODONE 100MG P.O QHS, AND LEXAPRO 10MG P.O DAILY.NOTED AND CARRIED OUT.
[2018-11-30 20:00] VITALS: BP 101/62
[2018-11-30] MEDS: TRAZODONE 50 MG TABLET PO SCH (21:14)
[2018-11-30] MEDS: TEMAZEPAM 7.5 MG CAPSULE PO PRN (21:17)
[2018-12-01] MEDS: IPRATROPIUM NEB FS 0.5 MG/2.5 ML AMPUL.NEB NEB SCH ×4 (01:30→19:58)
[2018-12-01 06:56] LABS: BASOPHILS % (AUTO) 0.2 % (0.0-2.0); EOSINOPHILS % (AUTO) 4.1 % (0.0-6.0); HEMATOCRIT 41 % (33-45); HEMOGLOBIN 13.8 g/dL (11.5-14.8); LYMPHOCYTES # (AUTO) 2.7 /CMM (0.8-4.8); LYMPHOCYTES % (AUTO) 54.4 % (20.0-44.0); MEAN CORPUSCULAR HGB CONC 34 g/dl (31.0-36.0); MEAN CORPUSCULAR VOLUME 92 fL (82-100); MONOCYTES # (AUTO) 0.7 /CMM (0.1-1.30); MONOCYTES % (AUTO) 13.8 % (2.0-12.0); NEUTROPHILS # (AUTO) 1.4 /CMM (1.8-8.9); NEUTROPHILS % (AUTO) 27.5 % (43.0-81.0); PLATELET COUNT (AUTO) 261 /CMM (150-450); RED BLOOD CELL COUNT(AUTO) 4.45 MIL/uL (4.0-5.2)
[2018-12-01 07:22] LABS: ALBUMIN 3.7 g/dL (3.4-5.0); BILIRUBIN,TOTAL 0.3 mg/dL (0.2-1.0); CALCIUM, SERUM 9.5 mg/dL (8.5-10.1); CREATININE 0.7 mg/dL (0.6-1.3); POTASSIUM 4.5 mmol/L (3.5-5.1); TOTAL PROTEIN, SERUM 7.3 g/dL (6.4-8.2)
[2018-12-01 08:00] VITALS: BP 105/70
[2018-12-01] MEDS: ESCITALOPRAM OXALATE (10 MG) 10 MG TABLET PO SCH (08:23)
[2018-12-01] MEDS: LIDOCAINE 5% (PATCH) 1 EA PATCH TP SCH (08:23)
[2018-12-01] MEDS: OXCARBAZEPINE 150 MG TABLET PO SCH ×2 (08:23→16:31)
[2018-12-01] MEDS ORDERED: TIOTROPIUM BROMIDE 6 CAP/BOX CAP.W.DEV IH SCH (09:00)
[2018-12-01] MEDS: LORAZEPAM 0.5 MG TABLET PO PRN (11:59)
--- NOTE | 2018-12-01 12:26 | NUR ---
GYPSY conducted a substance abuse intervention with the pt regarding her history with substances such as methamphetamines.
--- NOTE | 2018-12-01 14:48 | NUR ---
GROUP NOTE: SW prompted pt to attend group, pt refused and stated she wanted to stay in her room. Pt reported feeling anxious due to her roommate disturbing her.
--- NOTE | 2018-12-01 14:51 | NUR ---
SW called the pt's director case management at [facility], Michelle ()[phone]), and left her a voicemail message stating that she would like to discuss the initial discharge plan.
--- NOTE | 2018-12-01 15:16 | NUR ---
GYPSY called the pt's outsole caser at [facility], Michelle ([phone]), and left another voicemail returning her call.
--- NOTE | 2018-12-01 15:22 | NUR ---
Michelle ([phone]), [facility], called the SW and discussed her case. 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 SW also discussed the pt attending groups and currently talking to herself. Michelle stated that she will have her new caseworker, Shayy, call the SW.
[2018-12-01 16:00] VITALS: BP 117/79
--- NOTE | 2018-12-01 19:30 | NUR ---
GPS RN NOTE, RECEIVED PATIENT AWAKE AND IN ROOM NO S/S OR COMPLAINTS OF PAIN AT THIS TIME. PATIENT IS DISPLAYING NO S/S OF APPARENT DISTRESS AT THIS TIME. PATIENT BREATHING IS UNLABORED WITH EQUAL RISE AND FALL OF THE CHEST. PATIENT IS ALERT AND ORIENTED X 3 ON ROOM AIR WITH A SPO2 OF 98%. PATIENT IS MED COMPLAINT, ANXIOUS, DISORGANIZED, ANXIOUS, COOPERATIVE, HYPERVERBAL, AND NEEDS REORIENTATION. PATIENT IS CONFUSED BUT DENIES SUICIDE AND HOMICIDAL IDEATIONS AT THIS TIME. PATIENT ASSISTED WITH TURNING AND REPOSITIONING Q2HR AND PRN FOR COMFORT AND CIRCULATION. PATIENT HAS NO NEEDS AT THIS TIME. PATIENT EDUCATED ON THE USE OF THE CALL MAN. PATIENT BED SIDE RAILS ARE UP X 2 FOR SAFETY, BED IS LOCKED AND LOW. WILL CONTINUE TO MONITOR AND MAINTAIN SAFETY Q15 MIN WITH THE HELP OF STAFF.
[2018-12-01 20:00] VITALS: BP 102/68
--- NOTE | 2018-12-01 22:01 | NUR ---
GPS RN NOTE, PATIENT HAS A COMPLAINT OF INDIGESTION AND IS REQUESTING MAALOX AT THIS TIME. PATIENT VITAL SIGNS ARE STABLE. GAVE MAALOX 30 ML PO Q4HR PRN ORDERED. WILL REASSESS FOR INDIGESTION AND I WILL CONTINUE TO MONITOR THIS PATIENT.
[2018-12-01] MEDS: TRAZODONE 50 MG TABLET PO SCH (22:49)
[2018-12-02] MEDS: IPRATROPIUM NEB FS 0.5 MG/2.5 ML AMPUL.NEB NEB SCH ×4 (01:30→20:36)
[2018-12-02 08:00] VITALS: BP 113/71
[2018-12-02] MEDS: LIDOCAINE 5% (PATCH) 1 EA PATCH TP SCH (08:52)
[2018-12-02] MEDS: ESCITALOPRAM OXALATE (10 MG) 10 MG TABLET PO SCH (08:52)
[2018-12-02] MEDS: OXCARBAZEPINE 150 MG TABLET PO SCH ×2 (08:52→17:07)
[2018-12-02] MEDS ORDERED: POLYVINYL ALCOHOL 15 ML BOTTLE OP PRN (12:00)
[2018-12-02] MEDS ORDERED: PHENYLEPHRINE/SHK LV/MO/PET,WH 30 GM TUBE RC PRN (12:00)
[2018-12-02] MEDS ORDERED: NAPROXEN 500 MG TABLET PO PRN (12:00)
[2018-12-02 16:00] VITALS: BP 116/83
[2018-12-02 20:06] VITALS: BP 123/61
[2018-12-02] MEDS: AMOX/CLAVULANATE 875 MG TABLET PO SCH (20:40)
[2018-12-02] MEDS: TRAZODONE 50 MG TABLET PO SCH (22:28)
[2018-12-02] MEDS: TEMAZEPAM 7.5 MG CAPSULE PO PRN (22:57)
[2018-12-03] MEDS: IPRATROPIUM NEB FS 0.5 MG/2.5 ML AMPUL.NEB NEB SCH ×4 (01:30→19:44)
[2018-12-03 08:00] VITALS: BP 100/58
[2018-12-03] MEDS: LIDOCAINE 5% (PATCH) 1 EA PATCH TP SCH (09:43)
[2018-12-03] MEDS: OXCARBAZEPINE 150 MG TABLET PO SCH ×2 (09:43→17:40)
[2018-12-03] MEDS: AMOX/CLAVULANATE 875 MG TABLET PO SCH ×2 (09:43→20:55)
[2018-12-03] MEDS: FAMOTIDINE (20 MG) 20 MG TABLET PO SCH (09:43)
[2018-12-03] MEDS: DOCUSATE SODIUM 100 MG CAPSULE PO SCH (09:43)
[2018-12-03] MEDS: ESCITALOPRAM OXALATE (10 MG) 10 MG TABLET PO SCH (09:43)
[2018-12-03 16:00] VITALS: BP 102/56
[2018-12-03 20:02] VITALS: BP 98/57
[2018-12-03] MEDS: TRAZODONE 50 MG TABLET PO SCH (22:15)
[2018-12-03] MEDS: TEMAZEPAM 7.5 MG CAPSULE PO PRN (22:36)
[2018-12-04] MEDS: IPRATROPIUM NEB FS 0.5 MG/2.5 ML AMPUL.NEB NEB SCH ×4 (01:30→19:30)
[2018-12-04 08:00] VITALS: BP 96/59
[2018-12-04] MEDS: AMOX/CLAVULANATE 875 MG TABLET PO SCH ×2 (08:36→20:46)
[2018-12-04] MEDS: ESCITALOPRAM OXALATE (10 MG) 10 MG TABLET PO SCH (08:36)
[2018-12-04] MEDS: FAMOTIDINE (20 MG) 20 MG TABLET PO SCH (08:36)
[2018-12-04] MEDS: OXCARBAZEPINE 150 MG TABLET PO SCH ×3 (08:37→17:04)
[2018-12-04] MEDS: DOCUSATE SODIUM 100 MG CAPSULE PO SCH (08:37)
[2018-12-04] MEDS: LIDOCAINE 5% (PATCH) 1 EA PATCH TP SCH (08:40)
--- NOTE | 2018-12-04 09:38 | NUR ---
Shayy ([phone]), telephonic case manager from [facility], called the SW and asked for an update regarding the pts behavior. SW stated that the pt has presented as delusional and has been responding to internal stimuli. SW also stated that pt has not been agitated or rude like the previous admission and has been behaving appropriately. GYPSY stated that she would keep the telephonic case manager updated regarding the pts discharge.
[2018-12-04] MEDS ORDERED: PHENYLEPHRINE/SHK LV/MO/PET,WH 30 GM TUBE RC PRN (13:00)
[2018-12-04] MEDS: MULTIVIT W/MINERALS 1 TAB TABLET PO SCH (13:46)
[2018-12-04] MEDS: ENSURE ENLIVE CHOC 237 ML CAN PO SCH ×2 (13:50→17:04)
--- NOTE | 2018-12-04 14:31 | NUR ---
Group note: Pt attended a group session on 12/04/18 at 11AM discussing the topic of what has caused their admission to the hospital and what contributes to their discharge plan. S: Pt stated, My support system is my evangelical, my friends and my sponsor. There are a lot of people around me that are involved with drugs and that is a life that I am trying to separate myself from. I have been trying to keep my distance from them and focus on my supports. O: Pt was present during the group session and was attentive and cooperative. Pt appeared to be in a euthymic mood and presented with a manic affect. Pt presented as hyperverbal and was incoherent at times. Pt was unable to maintain appropriate eye contact throughout the group and was observed to be looking around her environment constantly. A: Pt gained awareness on the importance of not engaging with substances and working towards her goal of maintaining her sobriety. Pt expressed feelings of wanting to separate herself from that previous lifestyle due to the dangers of those behaviors. P: Pt will continue milieu treatment and medication stabilization.
[2018-12-04] MEDS: LORAZEPAM 0.5 MG TABLET PO PRN (15:02)
--- NOTE | 2018-12-04 15:03 | NUR ---
GPS RN NOTE: PT FEELING ANXIOUS REQUESTING MEDICATION,ATIVAN 0.5 MG PO PRN. WILL CONTINUE MONITORING FOR SAFETY AND BEHAVIOR Q 15 MIN.
[2018-12-04 16:00] VITALS: BP 99/62
[2018-12-04 19:52] VITALS: BP 97/57
[2018-12-04] MEDS: PSYLLIUM SEED 1 PKT PACKET PO SCH (21:41)
[2018-12-04] MEDS: TRAZODONE 50 MG TABLET PO SCH (21:41)
[2018-12-04] MEDS: TEMAZEPAM 7.5 MG CAPSULE PO PRN (22:32)
[2018-12-05] MEDS: IPRATROPIUM NEB FS 0.5 MG/2.5 ML AMPUL.NEB NEB SCH ×4 (01:30→20:11)
[2018-12-05 08:00] VITALS: BP 100/59
[2018-12-05] MEDS: PSYLLIUM SEED 1 PKT PACKET PO SCH ×2 (08:24→21:42)
[2018-12-05] MEDS: DOCUSATE SODIUM 100 MG CAPSULE PO SCH (08:24)
[2018-12-05] MEDS: AMOX/CLAVULANATE 875 MG TABLET PO SCH ×2 (08:25→21:42)
[2018-12-05] MEDS: MULTIVIT W/MINERALS 1 TAB TABLET PO SCH (08:25)
[2018-12-05] MEDS: FAMOTIDINE (20 MG) 20 MG TABLET PO SCH (08:25)
[2018-12-05] MEDS: ESCITALOPRAM OXALATE (10 MG) 10 MG TABLET PO SCH (08:25)
[2018-12-05] MEDS: OXCARBAZEPINE 150 MG TABLET PO SCH ×2 (08:26→16:52)
[2018-12-05] MEDS: LIDOCAINE 5% (PATCH) 1 EA PATCH TP SCH (08:27)
[2018-12-05] MEDS: ENSURE ENLIVE CHOC 237 ML CAN PO SCH ×3 (08:29→16:52)
--- NOTE | 2018-12-05 15:41 | NUR ---
GROUP NOTE: TOPIC: "Why were you placed on a hold?" S: "I didn't have my Trazodone and I wasn't taking my meds right I was also diagnosed with MRSA and I felt alone because everyone thought I was contagious and they didn't want to be near me. People were afraid of me. That made me sad and I needed help that's why I am here now. But I am better and I want to be discharged already." O: Pt was hyperverbal and interjected in other patients conversations, Pt would also provide feedback when not prompted to. Pt maintained eye contact and also requested additional assistance once discharged. Pts mood appeared manic with congruent affect. A: Pt gained awareness of the importance of complying with her medication regimen. Pt also expressed wanting to attend a senior center to participate in activities daily to not feel so alone. Pt requested referrals to senior centers around her area. P: Pt will continue milieu treatment and medication compliance.
[2018-12-05 16:00] VITALS: BP 100/63
[2018-12-05] MEDS: BENZTROPINE MESYLATE (1 MG) 1 MG TABLET PO SCH (16:51)
[2018-12-05] MEDS: ZIPRASIDONE 20 MG CAPSULE PO SCH (16:51)
[2018-12-05] MEDS ORDERED: risperiDONE 1 MG TABLET PO SCH (17:00)
[2018-12-05] MEDS: TRAMADOL HCL 50 MG TABLET PO PRN (18:47)
--- NOTE | 2018-12-05 18:57 | NUR ---
GPS RN NOTE: PT REQUESTING ULTRAM PRN FOR PAIN , MEDICATIONS GIVEN FOR 6/10 NECK PAIN
--- NOTE | 2018-12-05 19:30 | NUR ---
GPS RN NOTE, RECEIVED PATIENT AWAKE AND IN ROOM NO S/S OR COMPLAINTS OF PAIN AT THIS TIME. PATIENT IS DISPLAYING NO S/S OF APPARENT DISTRESS AT THIS TIME. PATIENT BREATHING IS UNLABORED WITH EQUAL RISE AND FALL OF THE CHEST. PATIENT IS ALERT AND ORIENTED X 3 ON ROOM AIR WITH A SPO2 OF 95%. PATIENT IS MED COMPLAINT, ANXIOUS, DISORGANIZED, COOPERATIVE, HYPERVERBAL, AND NEEDS REORIENTATION. PATIENT DENIES SUICIDE AND HOMICIDAL IDEATIONS AT THIS TIME. PATIENT ASSISTED WITH TURNING AND REPOSITIONING Q2HR AND PRN FOR COMFORT AND CIRCULATION. PATIENT HAS NO NEEDS AT THIS TIME. PATIENT EDUCATED ON THE USE OF THE CALL MAN. PATIENT BED SIDE RAILS ARE UP X 2 FOR SAFETY, BED IS LOCKED AND LOW. WILL CONTINUE TO MONITOR AND MAINTAIN SAFETY Q15 MIN WITH THE HELP OF STAFF.
[2018-12-05 19:50] VITALS: BP 94/65
[2018-12-05] MEDS: TRAZODONE 50 MG TABLET PO SCH (22:00)
--- NOTE | 2018-12-05 22:57 | NUR ---
GPS RN NOTE, PATIENT IS TOO SEDATED TO TAKE TRAZODONE 100 MG PO HS. PATIENT VITAL SIGNS ARE FOLLOWS B/P 94/65, PULSE 74, PULSE 83, TEMP 98.5, SPO2 95% RESPIRATIONS 18. PATIENT IS RESPONDING TO VERBAL STIMULI. WILL CONTINUE TO MONITOR THIS PATIENT
[2018-12-06] MEDS: TEMAZEPAM 7.5 MG CAPSULE PO PRN (00:51)
--- NOTE | 2018-12-06 00:51 | NUR ---
GPS RN NOTE, PATIENT HAS A COMPLAINT OF INSOMNIA AND IS REQUESTING RESTORIL AT THIS TIME. PATIENT VITAL SIGNS ARE STABLE. GAVE RESTORIL 7.5MG PO HS ORDERED. WILL REASSESS FOR INSOMNIA AND I WILL CONTINUE TO MONITOR THIS PATIENT.
[2018-12-06] MEDS: IPRATROPIUM NEB FS 0.5 MG/2.5 ML AMPUL.NEB NEB SCH ×3 (07:35→19:23)
--- NOTE | 2018-12-06 07:43 | NUR ---
PATIENT REFUSED TX. BENEFITS AND CONTRAINDICATION EXPLAINED. NO S/S OF SOB NOTED. WILL CONTINUE TO MONITOR PATIENT. Addendum: 12/06/18 at 0744 by DEMARCUS BRO RT Amended: Links added.
[2018-12-06 08:00] VITALS: BP 153/55
[2018-12-06] MEDS: ZIPRASIDONE 20 MG CAPSULE PO SCH (08:46)
[2018-12-06] MEDS: ESCITALOPRAM OXALATE (10 MG) 10 MG TABLET PO SCH (08:46)
[2018-12-06] MEDS: MULTIVIT W/MINERALS 1 TAB TABLET PO SCH (08:46)
[2018-12-06] MEDS: DOCUSATE SODIUM 100 MG CAPSULE PO SCH (08:46)
[2018-12-06] MEDS: OXCARBAZEPINE 150 MG TABLET PO SCH ×2 (08:47→16:14)
[2018-12-06] MEDS: BENZTROPINE MESYLATE (1 MG) 1 MG TABLET PO SCH ×2 (08:47→16:14)
[2018-12-06] MEDS: ENSURE ENLIVE CHOC 237 ML CAN PO SCH ×3 (08:47→16:14)
[2018-12-06] MEDS: PSYLLIUM SEED 1 PKT PACKET PO SCH ×2 (08:47→21:17)
[2018-12-06] MEDS: FAMOTIDINE (20 MG) 20 MG TABLET PO SCH (08:47)
[2018-12-06] MEDS: AMOX/CLAVULANATE 875 MG TABLET PO SCH ×2 (08:47→21:16)
[2018-12-06] MEDS: LIDOCAINE 5% (PATCH) 1 EA PATCH TP SCH (08:51)
--- NOTE | 2018-12-06 10:17 | NUR ---
GYPSY faxed a MRSA Clearance note to [facility] with attention to Shayy to the fax number: [phone].
[2018-12-06] MEDS ORDERED: BENZTROPINE MESYLATE (2MG/2ML) 2 MG/2 ML AMPUL IM ONE (12:30)
--- NOTE | 2018-12-06 13:13 | NUR ---
PT ASLEEP AND IN NO RESP DISTRESS. NO S/S OF SOB NOTED. WILL CONT TO MONITOR Addendum: 12/06/18 at 1314 by DEMARCUS BRO RT Amended: Links added.
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
[2018-12-06 16:00] VITALS: BP 94/55
[2018-12-06 19:57] VITALS: BP 98/62
[2018-12-06] MEDS: TRAZODONE 50 MG TABLET PO SCH (22:13)
[2018-12-06] MEDS: TRAMADOL HCL 50 MG TABLET PO PRN (22:50)
[2018-12-07] MEDS: IPRATROPIUM NEB FS 0.5 MG/2.5 ML AMPUL.NEB NEB SCH ×4 (01:10→20:25)
[2018-12-07] MEDS: LORAZEPAM 0.5 MG TABLET PO PRN (04:19)
[2018-12-07] MEDS: PSYLLIUM SEED 1 PKT PACKET PO SCH ×2 (07:30→20:51)
[2018-12-07 08:00] VITALS: BP 100/59
[2018-12-07] MEDS: AMOX/CLAVULANATE 875 MG TABLET PO SCH ×2 (08:41→20:50)
[2018-12-07] MEDS: FAMOTIDINE (20 MG) 20 MG TABLET PO SCH (08:41)
[2018-12-07] MEDS: ESCITALOPRAM OXALATE (10 MG) 10 MG TABLET PO SCH (08:42)
[2018-12-07] MEDS: BENZTROPINE MESYLATE (1 MG) 1 MG TABLET PO SCH ×2 (08:42→16:28)
[2018-12-07] MEDS: MULTIVIT W/MINERALS 1 TAB TABLET PO SCH (08:42)
[2018-12-07] MEDS: DOCUSATE SODIUM 100 MG CAPSULE PO SCH (08:42)
[2018-12-07] MEDS: LIDOCAINE 5% (PATCH) 1 EA PATCH TP SCH (08:43)
[2018-12-07] MEDS: ENSURE ENLIVE CHOC 237 ML CAN PO SCH ×3 (08:53→17:24)
[2018-12-07] MEDS: OXCARBAZEPINE 150 MG TABLET PO SCH ×2 (08:53→16:28)
[2018-12-07 16:00] VITALS: BP 114/74
--- NOTE | 2018-12-07 16:16 | NUR ---
SW called Shayy ([phone] ext [phone]), case management coordinator from [facility], and left her a voicemail stating that the pt is going to be discharged tomorrow and that the SW would like to discuss it.
--- NOTE | 2018-12-07 16:19 | NUR ---
Group note: Pt attended a group session on 12/07/18 at 2:00PM discussing the problem of discharge planning. S: "I need to get my money in order, I no longer need a payee, all the issues I've been having is because my payee doesn't pay my stuff in time. I've been sober and being so good I think it's time for me to responsible of my own money." O: Pt was hyperverbal and grabbing her hair in distress pt was also providing feedback to other pts appropriately. Pts mood was euthymic with congruent affect. A: Pt expressed feeling ready to be discharged home and gained awareness of her needs to be able to cope once being discharged once home. P: pt will continue milieu treatment and medication compliance.
[2018-12-07 20:00] VITALS: BP 95/58
[2018-12-07] MEDS: TRAZODONE 50 MG TABLET PO SCH (20:50)
[2018-12-07] MEDS: TRAMADOL HCL 50 MG TABLET PO PRN (21:40)
[2018-12-08] MEDS: IPRATROPIUM NEB FS 0.5 MG/2.5 ML AMPUL.NEB NEB SCH ×3 (01:30→13:39)
[2018-12-08 08:26] VITALS: BP 128/68
[2018-12-08] MEDS: AMOX/CLAVULANATE 875 MG TABLET PO SCH (08:27)
[2018-12-08] MEDS: DOCUSATE SODIUM 100 MG CAPSULE PO SCH (08:27)
[2018-12-08] MEDS: FAMOTIDINE (20 MG) 20 MG TABLET PO SCH (08:27)
[2018-12-08] MEDS: ESCITALOPRAM OXALATE (10 MG) 10 MG TABLET PO SCH (08:27)
[2018-12-08] MEDS: MULTIVIT W/MINERALS 1 TAB TABLET PO SCH (08:28)
[2018-12-08] MEDS: OXCARBAZEPINE 150 MG TABLET PO SCH (08:29)
[2018-12-08] MEDS: PSYLLIUM SEED 1 PKT PACKET PO SCH (08:30)
--- NOTE | 2018-12-08 08:30 | NUR ---
DR. COLON GAVE AN ORDER TO D/C HOLD AND D/C HOME AND TO FOLLOW UP WITH PSYCH AND MEDICAL DOCTORS.
[2018-12-08] MEDS: LIDOCAINE 5% (PATCH) 1 EA PATCH TP SCH (08:31)
[2018-12-08] MEDS: ENSURE ENLIVE CHOC 237 ML CAN PO SCH ×2 (08:33→12:21)
--- NOTE | 2018-12-08 15:05 | NUR ---
GPS PATIENT COMPANION NOTE: [place] [address], [address] [facility] [address]. PT IN STABLE CONDITION, S/O X4 AMBULATORY SELF CARE, DENIES SI/HI AVH, VSS. EXIT CARE DONE PRINTED, SIGN AND GIVEN TO PT. PRESCRIPTION GIVEN EXPLAIN,ALL BELONGINGS AND VALUABLES RETURNED TO PT. PT SKIN CLEAN AND INTACT.
--- NOTE | 2018-12-08 16:13 | NUR ---
Discharge Note: Pt was discharged home to [address], [address], [place] [address]; ([phone]). Pt was transported via taxi at 3PM. Pts case investigator, Shayy ([phone]), was made aware. Upon discharge, the pt appeared to be in a euthymic mood and presented with a distressed affect. Pt denied both suicidal and homicidal ideation as well as auditory and visual hallucinations. Pt was provided with substance abuse referrals as well as smoking cessation that are listed below. Pt will be under the care of her psychiatrist, Dr. Radu Wright ([facility]), [place] at [address] [place] [address]; ; fax was sent to: [phone]. Pt will also be under the care of, [facility], located at [address], [place] [address]; . Substance Abuse Referrals: [facility] [address] [place] [address] Tel. [facility] Primary [facility] Provider Mental Health Treatment Tele-dermatology HIV Services Telemedicine Services [facility] [address] [place] [address] [facility] [address] [place] [address] Smoking Cessation Referrals: [facility] 800-LUNGUSA [facility] [phone]
== END 2018-12-08 15:40 | disposition home or self-care (01) | DRG 885 ==
LOC: ER 22:06 → GPS 11-30 02:42
PROVIDERS: ADMIT Psychiatry & Neurology Psychiatry; ATTEND Nurse Practitioner Acute Care
DX: F31.60 Bipolar disorder, current episode mixed, unspecified (principal); R45.851 Suicidal ideations; N39.0 Urinary tract infection, site not specified; F20.9 Schizophrenia, unspecified; F43.10 Post-traumatic stress disorder, unspecified; F41.9 Anxiety disorder, unspecified; J43.9 Emphysema, unspecified; M41.9 Scoliosis, unspecified; F17.210 Nicotine dependence, cigarettes, uncomplicated; Z86.19 Personal history of other infectious and parasitic diseases; K05.10 Chronic gingivitis, plaque induced
CPT/HCPCS: 36415; 80048-TC; 80053-TC; 80061-TC; 80076-TC; 80305; 81000-TC; 85025-TC; 87081-TC; 87086-TC; 92526; 92611-TC; 94760-TC; G0480; J0515

== ENCOUNTER 2019-02-13 20:28 | Emergency (ER) | payer MEDICARE, MEDICAID ==
[~2019-02-13] VITALS: Ht 167.6 cm; Wt 59.0 kg
[~2019-02-13 20:28] MED LIST changes: +AMOX875T2 PO; -CARB100T19 PO; +LANS30CA54 PO; +LIDO30AD10 TP; +NAPR-1009 PO; +POLY15DR40 EACHEYE; -QUET50TA PO; +TIOT18CA3 IH; +TRAM50TA PO
[2019-02-13 20:47] VITALS: BP 150/97
== END 2019-02-13 21:30 | disposition home or self-care (01) ==
LOC: ER 20:28
DX: S02.5XXA Fracture of tooth (traumatic), initial encounter for closed fracture (principal); K02.9 Dental caries, unspecified; F14.90 Cocaine use, unspecified, uncomplicated; J43.9 Emphysema, unspecified; F20.9 Schizophrenia, unspecified; F31.9 Bipolar disorder, unspecified; F43.10 Post-traumatic stress disorder, unspecified; F10.10 Alcohol abuse, uncomplicated; F17.200 Nicotine dependence, unspecified, uncomplicated; Y90.9 Presence of alcohol in blood, level not specified; Z98.890 Other specified postprocedural states; Z60.2 Problems related to living alone; Z86.19 Personal history of other infectious and parasitic diseases; Z88.8 Allergy status to other drugs, medicaments and biological substances; X58.XXXA Exposure to other specified factors, initial encounter; Y93.89 Activity, other specified; Y92.89 Other specified places as the place of occurrence of the external cause; Y99.8 Other external cause status

== ENCOUNTER 2019-02-15 00:20 | Inpatient (IN) | payer MEDICARE, MEDICAID ==
[~2019-02-15] VITALS: Ht 167.6 cm; Wt 59.0 kg
[2019-02-15] MEDS ORDERED: OLANZAPINE 10 MG VIAL IM ONE ×2 (01:00→01:04)
--- NOTE | 2019-02-15 01:00 | NUR ---
[id number] FROM HOME C/O RESTLESS BEHAVIOR S/P SMOKED COCAINE EARILER TODAY
--- NOTE | 2019-02-15 01:34 | NUR ---
F/C INSERTED, URINE COLLECTED AND SENT TO THE LAB
[2019-02-15 01:36] LABS: BASOPHILS % (AUTO) 0.3 % (0.0-2.0); EOSINOPHILS % (AUTO) 0.8 % (0.0-6.0); HEMATOCRIT 39 % (33-45); HEMOGLOBIN 13.5 g/dL (11.5-14.8); LYMPHOCYTES # (AUTO) 1.6 /CMM (0.8-4.8); MEAN CORPUSCULAR HGB CONC 35 g/dl (31.0-36.0); MEAN CORPUSCULAR VOLUME 90 fL (82-100); MONOCYTES # (AUTO) 0.7 /CMM (0.1-1.30); MONOCYTES % (AUTO) 12.8 % (2.0-12.0); NEUTROPHILS # (AUTO) 3.2 /CMM (1.8-8.9); NEUTROPHILS % (AUTO) 57.1 % (43.0-81.0); PLATELET COUNT (AUTO) 241 /CMM (150-450); RED BLOOD CELL COUNT(AUTO) 4.31 MIL/uL (4.0-5.2); WHITE BLOOD COUNT (AUTO) 5.7 K/uL (4.3-11.0)
[2019-02-15 01:40] LABS: APPEARANCE,URINE Clear (CLEAR); BILIRUBIN,URINE Negative (NEGATIVE); BLOOD, URINE Negative Ery/uL (NEGATIVE); COLOR,URINE Yellow (YELLOW); KETONES,URINE 15 (NEGATIVE); LEUKOCYTE ESTERASE ,URINE Negative (NEGATIVE); NITRITE, URINE Negative (NEGATIVE); PH,URINE 6.5 (5.0-8.0); PROTEIN,URINE Negative (NEGATIVE); UGLUCOSE Negative (NEGATIVE); UROBILINOGEN,URINE 0.2 EU/dL (0.2)
[2019-02-15 01:49] LABS: ALANINE AMINOTRANSFERASE 66 U/L (12-78); ALCOHOL, BLOOD < 3 mg/dL (0-0); ALKALINE PHOSPHATASE 81 U/L (46-116); ASPARTATE AMINOTRANSFERASE 39 U/L (15-37); BILIRUBIN,DIRECT 0.1 mg/dL (0.0-0.2); BILIRUBIN,TOTAL 0.4 mg/dL (0.2-1.0); CALCIUM, SERUM 9.1 mg/dL (8.5-10.1); CARBON DIOXIDE 26 mmol/L (21-32); CHLORIDE 103 mmol/L (98-107); CREATININE 0.6 mg/dL (0.6-1.3); GLUCOSE 120 mg/dL (74-106); POTASSIUM 3.4 mmol/L (3.5-5.1); SODIUM SERUM 141 mmol/L (136-145); TOTAL PROTEIN, SERUM 7.9 g/dL (6.4-8.2); UREA NITROGEN, BLOOD 26 mg/dL (7-18)
[2019-02-15 01:50] LABS: ACETAMINOPHEN 0 ug/ml (10-30); SALICYLATE 1.6 mg/dL (2.8-20.0)
[2019-02-15 01:52] LABS: BACTERIA,URINE Few /HPF (None Seen); RBC,URINE 0-2 /HPF (0-2); SQUAMOUS EPITHELIAL CELL,UR Few /HPF (None Seen)
--- NOTE | 2019-02-15 01:55 | NUR ---
Pt constantly pulling on her F/C and trying to remove it. F/C D/C'd to prevent trauma and made aware
--- NOTE | 2019-02-15 02:06 | NUR ---
Patient is resting comfortably in bed with eyes closed. Easily aroused. VSS
--- NOTE | 2019-02-15 05:20 | NUR ---
Patient is resting comfortably in bed with eyes closed. Easily aroused. VSS
--- NOTE | 2019-02-15 08:02 | NUR ---
PT IN BED ASLEEP, HOOKED TO MONITOR, SITTER AT BEDSIDE. WILL CONT TO MONITOR
--- NOTE | 2019-02-15 10:23 | NUR ---
GIANNI MAYS REQUESTS STATUS UPDATE [phone]
--- NOTE | 2019-02-15 13:20 | NUR ---
Social service consult requested by ER Charge Nurse. Pt is a 58 year old female was admitted to [facility] ER for substance abuse/overdose. SW met with pt at bedside. Pt�s belongings and meal were at bedside. Pt is agitated and oriented x2. Pt was not cooperative with SW during assessment, and presented with psychotic symptoms. Pt is ambulatory. Pt states that she lives with her sister and a roommate, Cristiano Martinez at [address], [place] [address]; . Pt�s emergency contact is Cristiano Martinez but pt did not provide consent to contact him because �he is always busy; don�t you dare bother him.� Pt states that she is connected to [facility] [[address] [place] [address]] and receives housing support from the agency, including a [place] Section 8 voucher. Per pt, her [facility], Hipolito Fernandez , has visited her while in the ER and provided support in initial discharge planning. Pt receives [employer] benefits as a source of income. Pt states that she smoked cocaine and it �messed her up.� Pt. refused to provide further history on her drug and alcohol use. Pt. states that she has attended drug rehabilitation programs �many times� and initially refused referrals but SW was able to leave referrals in case pt changes motivation in the future. Pt states that she has a history of psychiatric diagnosis of bipolar and schizophrenia. Pt denied any current visual or auditory hallucinations, but stated �I�m going to hallucinate hitting you in the head if you don�t stop asking me any more questions.� Pt denies current suicidal or homicidal ideation at this time. Pt plans to return to her home at [address], [place] [address], after discharge or move to [place], [place], with the help from her [facility], Hipolito Fernandez . Pt will require a TAP card to return to her home upon discharge. SW provided the following referrals to pt: [facility] [address] [place] [address]; , [facility] [address] [place] [address]; , and [facility] Homeless Resources Directory and health and mental health clinic referrals were also provided. SW is available if needed.
--- NOTE | 2019-02-15 15:14 | NUR ---
CALLED RESTAURANT FLOOR MANAGER CORI, ONE HOUR ETA
--- NOTE | 2019-02-15 17:13 | NUR ---
CRISIS TEAM KORIN JULIAN [phone]
--- NOTE | 2019-02-15 20:05 | NUR ---
GPS BED 220-A
--- NOTE | 2019-02-15 20:18 | NUR ---
REPORT GIVEN TO GERRY DAVID FOR CONTINUATION OF CARE.
--- NOTE | 2019-02-15 21:42 | NUR ---
PT TRANSFERED TO [facility] VIA [facility].
--- NOTE | 2019-02-15 21:45 | NUR ---
GPS/ANTI TANK MISSILEMAN NOTE: ADMITTED A 58 YEAR OLD FEMALE FROM [place], INITIALLY CAME FROM HOME, ARRIVED TO THE UNIT AROUND [address] BROUGHT IN BY ER STAFF. PATIENT ADMITTED ON 5150 HOLD FOR DTS, DUE TO HER BIZARRE BEHAVIOR. UPON FACE TO FACE, SHE IS A/O X3, DOES NOT KNOW WHY SHE IS AT THE HOSPITAL. PATIENT WAS BIZARRE, STATED, I SWALLOWED MY TONSIL." SHE ALSO STATED THAT SHE IS FEELING SUICIDAL WITH A PLAN TO JUMP IN FRONT OF A BUS. PATIENT WAS PLACED IN BED, SHOWS NO S/S OF ANY PAIN AT THIS TIME, NO APPARENT DISTRESS NOTED. UNKEMPT, DISHEVELED, DISORGANIZED UNCOOPERATIVE, SELECTIVELY MUTE. REFUSED TO ANSWER SOME QUESTIONNAIRES, A/O X3, AMBULATORY/STEADY GAIT, SKIN INTACT. REFUSED TO SIGN LEGAL CONSENT, REFUSED SKIN AND TOTAL BODY ASSESSMENT. BELONGINGS INVENTORIED AND CHECKED FOR CONTRABAND. NO CONTRABAND NOTED. NEXT OF KIN NOTIFIED OF ADMISSION, SPOKE TO JUANI HARRIS [phone] Addendum: 02/16/19 at 0041 by LUCIA NIXON RN ADMISSION NOTE CONTINUED: NEXT OF KIN NOTIFIED OF ADMISSION, SPOKE TO JUANI HARRIS [phone]. PATIENT'S RIGHTS AND MEDICATION GUIDE GIVEN. MRSA SCREEN DONE. BED LOCKED AND PLACED ON LOWEST POSITION. WILL CONTINUE TO MONITOR Q 15 MINS. TO MAINTAIN SAFETY. WILL CONTINUE TO MONITOR Q 15 MINS. TO MAINTAIN SAFETY.
[2019-02-15] MEDS ORDERED: ACETAMINOPHEN 325 MG TABLET PO PRN (22:00)
[2019-02-15] MEDS ORDERED: MAGNESIUM HYDROXIDE 30 ML UDC PO PRN (22:00)
[2019-02-15] MEDS ORDERED: MAG HYDROX/AL HYDROX/SIMETH 30 ML UDC PO PRN (22:00)
[2019-02-16] MEDS: TEMAZEPAM 7.5 MG CAPSULE PO PRN ×2 (02:17→21:46)
[2019-02-16 08:00] VITALS: BP 103/79
[2019-02-16] MEDS ORDERED: POTASSIUM CHLORIDE 20 MEQ TAB.PRT.SR PO ONE (11:30)
--- NOTE | 2019-02-16 11:53 | NUR ---
Initial Discharge Plan: Pt currently lives in an apartment alone located at [address] [place] [address] [place], [address] [facility], [place] [address]; ([phone]). Per pt, she would like to return to her home. SW will work with the pt and the MD regarding appropriate discharge planning. SW will form a safe and proper discharge.
[2019-02-16] MEDS: NICOTINE PATCH (21MG) 21 MG PATCH.TD24 TD SCH (12:17)
[2019-02-16] MEDS: PANTOPRAZOLE 40 MG TABLET.DR PO SCH (12:26)
[2019-02-16] MEDS ORDERED: ONDANSETRON 4 MG TAB.RAPDIS PO PRN (12:30)
[2019-02-16] MEDS: OXCARBAZEPINE 150 MG TABLET PO SCH ×2 (14:07→16:12)
[2019-02-16] MEDS: IPRATROPIUM NEB FS 0.5 MG/2.5 ML AMPUL.NEB NEB SCH ×2 (14:38→20:36)
[2019-02-16 16:00] VITALS: BP 100/96
[2019-02-16] MEDS: QUETIAPINE FUMARATE 100 MG TABLET PO SCH ×2 (16:12→16:22)
[2019-02-16 20:00] VITALS: BP 107/58
[2019-02-16] MEDS: clonazePAM 0.5 MG TABLET PO PRN (23:22)
[2019-02-17] MEDS: IPRATROPIUM NEB FS 0.5 MG/2.5 ML AMPUL.NEB NEB SCH ×4 (01:19→20:43)
[2019-02-17] MEDS ORDERED: Medication Not On Formulary EA (Lansoprazole (Prevacid) 30 MG) PO SCH (07:30)
[2019-02-17 08:00] VITALS: BP 101/69
[2019-02-17] MEDS: NICOTINE PATCH (21MG) 21 MG PATCH.TD24 TD SCH (08:18)
[2019-02-17] MEDS: PANTOPRAZOLE 40 MG TABLET.DR PO SCH (08:20)
[2019-02-17] MEDS: LIDOCAINE 5% (PATCH) 1 EA PATCH TP SCH (08:20)
[2019-02-17] MEDS: OXCARBAZEPINE 150 MG TABLET PO SCH ×2 (08:20→17:01)
[2019-02-17] MEDS: QUETIAPINE FUMARATE 100 MG TABLET PO SCH ×2 (08:26→17:00)
--- NOTE | 2019-02-17 08:27 | NUR ---
rn note patient refused to take seroquel. explained risk and benefits but still refused. will notify MD
[2019-02-17] MEDS ORDERED: TIOTROPIUM BROMIDE 6 CAP/BOX CAP.W.DEV IH SCH (09:00)
[2019-02-17 11:32] LABS: CHOLESTEROL 194 mg/dL (<200); HDL CHOLESTEROL 70 mg/dL (40-60); LDL 111 mg/dL (0-99); TRIGLYCERIDES 93 mg/dL (30-150)
[2019-02-17 16:00] VITALS: BP 105/54
--- NOTE | 2019-02-17 19:22 | NUR ---
GPS/RN OPENING NOTES RECEIVED PATIENT AWAKE, ,AMBULATORY AND ABLE TO VERBALIZE NEEDS, APPEARS IN CONSTANT PACING BUT ABLE TO VERBALIZE NEEDS, ENDORSEMENT RECEIVED FROM AM RN FOR ALETA.
[2019-02-17 19:35] VITALS: BP 108/71
[2019-02-17 20:14] VITALS: BP 108/71
[2019-02-17] MEDS: clonazePAM 0.5 MG TABLET PO PRN (21:31)
--- NOTE | 2019-02-17 21:31 | NUR ---
GPS/RN NOTES PATIENT AWAKE, ALERT, ABLE TO MAKE NEEDS KNOWN REPORTED AND REQUESTED CLONAZEPAM NEEDED, 0.5 MG PO TABLET TO BE GIVEN AND MONITOR FOR ANY CHANGES AND RELIEF.
[2019-02-18] MEDS: TRAMADOL HCL 50 MG TABLET PO PRN (01:27)
[2019-02-18] MEDS: TEMAZEPAM 7.5 MG CAPSULE PO PRN (01:27)
--- NOTE | 2019-02-18 01:28 | NUR ---
GPS/RN NOTES PATIENT REQUESTED FOR PAIN MEDICATION AND MEDICATION FOR SLEEP,WUL MONITOR RELIEF.
[2019-02-18] MEDS: IPRATROPIUM NEB FS 0.5 MG/2.5 ML AMPUL.NEB NEB SCH ×4 (03:05→19:30)
[2019-02-18 08:00] VITALS: BP 108/72
[2019-02-18] MEDS: LIDOCAINE 5% (PATCH) 1 EA PATCH TP SCH (08:47)
[2019-02-18] MEDS: NICOTINE PATCH (21MG) 21 MG PATCH.TD24 TD SCH (08:47)
[2019-02-18] MEDS: QUETIAPINE FUMARATE 100 MG TABLET PO SCH ×3 (08:48→16:16)
[2019-02-18] MEDS: OXCARBAZEPINE 150 MG TABLET PO SCH ×2 (08:48→16:15)
[2019-02-18] MEDS: PANTOPRAZOLE 40 MG TABLET.DR PO SCH (08:48)
--- NOTE | 2019-02-18 09:00 | NUR ---
GPS RN NOTES PATIENT REFUSED TO TAKE SEROQUEL. RISKS AND BENEFITS EXPLAINED BUT TO NO AVAIL. OFFERED X 3, PATIENT STRONGLY REFUSED. MD AWARE. WILL CONTINUE TO MONITOR
[2019-02-18] MEDS: NAPROXEN 500 MG TABLET PO PRN (16:15)
[2019-02-18 16:47] VITALS: BP 112/72
[2019-02-18 20:28] VITALS: BP 112/72
[2019-02-19] MEDS: IPRATROPIUM NEB FS 0.5 MG/2.5 ML AMPUL.NEB NEB SCH ×4 (01:19→19:30)
[2019-02-19] MEDS: TEMAZEPAM 7.5 MG CAPSULE PO PRN ×2 (02:30→22:34)
[2019-02-19] MEDS: TRAMADOL HCL 50 MG TABLET PO PRN (02:30)
[2019-02-19 08:00] VITALS: BP 108/63
[2019-02-19] MEDS: PANTOPRAZOLE 40 MG TABLET.DR PO SCH (08:35)
[2019-02-19] MEDS: OXCARBAZEPINE 150 MG TABLET PO SCH ×2 (08:36→16:42)
[2019-02-19] MEDS: NICOTINE PATCH (21MG) 21 MG PATCH.TD24 TD SCH (08:37)
[2019-02-19] MEDS: LIDOCAINE 5% (PATCH) 1 EA PATCH TP SCH (08:37)
[2019-02-19] MEDS: QUETIAPINE FUMARATE 100 MG TABLET PO SCH ×2 (08:37→16:44)
[2019-02-19 16:00] VITALS: BP 124/60
--- NOTE | 2019-02-19 16:02 | NUR ---
GYPSY called Hipolito ([phone]) the pt's rn field case manager from [facility] and informed him that the pt was placed on a 5250 hold and that the medications are being increased. He stated that he would like to be informed about her discharge date once one is set.
[2019-02-19 20:00] VITALS: BP 120/71
[2019-02-19] MEDS: NAPROXEN 500 MG TABLET PO PRN (23:44)
[2019-02-20] MEDS: clonazePAM 0.5 MG TABLET PO PRN ×2 (00:08→09:47)
[2019-02-20] MEDS: IPRATROPIUM NEB FS 0.5 MG/2.5 ML AMPUL.NEB NEB SCH ×4 (01:11→19:30)
[2019-02-20] MEDS: TRAMADOL HCL 50 MG TABLET PO PRN (04:42)
[2019-02-20 08:00] VITALS: BP 117/80
[2019-02-20] MEDS: PANTOPRAZOLE 40 MG TABLET.DR PO SCH (08:09)
[2019-02-20] MEDS: OXCARBAZEPINE 150 MG TABLET PO SCH ×3 (08:09→16:53)
[2019-02-20] MEDS: LIDOCAINE 5% (PATCH) 1 EA PATCH TP SCH (08:10)
[2019-02-20] MEDS: QUETIAPINE FUMARATE 100 MG TABLET PO SCH (08:10)
[2019-02-20] MEDS: NICOTINE PATCH (21MG) 21 MG PATCH.TD24 TD SCH (08:10)
--- NOTE | 2019-02-20 09:48 | NUR ---
GPS/RN NOTES PATIENT REQUESTED CLONAZEPAM NEEDED, 0.5 MG PO TABLET TO BE GIVEN FOR ANXIETY WILL CONTINUE MONITORING
--- NOTE | 2019-02-20 15:58 | NUR ---
GROUP NOTE: SW prompted pt to attend group therapy but pt refused stating she was on the phone and needed to take care of some things. Pt appeared manic and hyperverbal.
[2019-02-20 16:00] VITALS: BP 150/93
[2019-02-20 20:23] VITALS: BP 150/48
[2019-02-21] MEDS: IPRATROPIUM NEB FS 0.5 MG/2.5 ML AMPUL.NEB NEB SCH ×4 (01:18→19:30)
[2019-02-21] MEDS: clonazePAM 0.5 MG TABLET PO PRN (02:20)
--- NOTE | 2019-02-21 02:20 | NUR ---
GPS RN NOTE, PATIENT HAS A COMPLAINT OF FEELING ANXIOUS AND IS REQUESTING KLONOPIN AT THIS TIME. PATIENT VITAL SIGNS ARE STABLE. GAVE KLONOPIN 0.5 MG PO Q4HR PRN AQS ORDERED. WILL REASSESS FOR ANXIETY AND I WILL CONTINUE TO MONITOR THIS PATIENT.
[2019-02-21 07:36] LABS: CALCIUM, SERUM 8.9 mg/dL (8.5-10.1); CREATININE 0.7 mg/dL (0.6-1.3); PHOSPHORUS 3.3 mg/dL (2.5-4.9); POTASSIUM 4.3 mmol/L (3.5-5.1)
[2019-02-21 07:39] LABS: BASOPHILS % (AUTO) 0.6 % (0.0-2.0); EOSINOPHILS % (AUTO) 3.5 % (0.0-6.0); HEMATOCRIT 40 % (33-45); HEMOGLOBIN 13.4 g/dL (11.5-14.8); LYMPHOCYTES # (AUTO) 2.3 /CMM (0.8-4.8); LYMPHOCYTES % (AUTO) 47.8 % (20.0-44.0); MEAN CORPUSCULAR HGB CONC 34 g/dl (31.0-36.0); MEAN CORPUSCULAR VOLUME 91 fL (82-100); MONOCYTES # (AUTO) 0.7 /CMM (0.1-1.30); MONOCYTES % (AUTO) 13.5 % (2.0-12.0); NEUTROPHILS # (AUTO) 1.7 /CMM (1.8-8.9); NEUTROPHILS % (AUTO) 34.6 % (43.0-81.0); PLATELET COUNT (AUTO) 236 /CMM (150-450); RED BLOOD CELL COUNT(AUTO) 4.33 MIL/uL (4.0-5.2); WHITE BLOOD COUNT (AUTO) 4.9 K/uL (4.3-11.0)
[2019-02-21 08:00] VITALS: BP 118/74
[2019-02-21] MEDS: LIDOCAINE 5% (PATCH) 1 EA PATCH TP SCH (08:35)
[2019-02-21] MEDS: PANTOPRAZOLE 40 MG TABLET.DR PO SCH (08:35)
[2019-02-21] MEDS: NICOTINE PATCH (21MG) 21 MG PATCH.TD24 TD SCH (08:35)
[2019-02-21] MEDS: OXCARBAZEPINE 150 MG TABLET PO SCH ×3 (08:35→17:45)
--- NOTE | 2019-02-21 15:41 | NUR ---
GROUP NOTE: SW prompted pt to participate in group therapy on this present day, but pt was manic and was not making any sense pts was hyperverbal and her speech was tangential.
[2019-02-21 16:00] VITALS: BP 105/72
[2019-02-21 20:35] VITALS: BP 115/62
[2019-02-21] MEDS: TEMAZEPAM 7.5 MG CAPSULE PO PRN (23:11)
[2019-02-22] MEDS: IPRATROPIUM NEB FS 0.5 MG/2.5 ML AMPUL.NEB NEB SCH ×4 (01:11→20:34)
[2019-02-22 08:00] VITALS: BP 117/77
[2019-02-22] MEDS: OXCARBAZEPINE 150 MG TABLET PO SCH ×3 (08:49→17:29)
[2019-02-22] MEDS: PANTOPRAZOLE 40 MG TABLET.DR PO SCH (08:49)
[2019-02-22] MEDS: NAPROXEN 500 MG TABLET PO PRN (08:54)
[2019-02-22] MEDS: NICOTINE PATCH (21MG) 21 MG PATCH.TD24 TD SCH (08:55)
--- NOTE | 2019-02-22 13:25 | NUR ---
GYPSY called Laci from [facility] ([phone]. [phone]) and left him a voicemail stating that the SW is requesting an assessment to be conducted for the pt.
[2019-02-22] MEDS: LIDOCAINE 5% (PATCH) 1 EA PATCH TP SCH (13:26)
--- NOTE | 2019-02-22 15:25 | NUR ---
Group note: Pt attended a group session on 02/22/19 at 2PM discussing their discharge plan. S: Pt stated, �I think that I need to be in a substance abuse center because I have a problem with drugs and home is not a safe place for me.� O: Pt was present during the group session and was engaged. Pt appeared to be in a euthymic mood and presented with a calm affect. Pt maintained appropriate eye contact and had an appropriate tone of voice. A: Pt expressed that she is concerned for her own safety and her behaviors. Pt was preoccupied with a program for veterans that she would like to be part of and gain assistance from. Pt expressed her need to gain help and make appropriate changes in her life. P: Pt will continue milieu treatment and medication stabilization.
[2019-02-22 16:00] VITALS: BP 125/73
[2019-02-22] MEDS: TRAMADOL HCL 50 MG TABLET PO PRN (18:29)
[2019-02-22 20:24] VITALS: BP 116/69
[2019-02-23] MEDS: NAPROXEN 500 MG TABLET PO PRN ×2 (00:49→14:58)
[2019-02-23] MEDS: TEMAZEPAM 7.5 MG CAPSULE PO PRN (00:50)
[2019-02-23] MEDS: IPRATROPIUM NEB FS 0.5 MG/2.5 ML AMPUL.NEB NEB SCH ×4 (01:22→19:29)
[2019-02-23 08:00] VITALS: BP 115/73
[2019-02-23] MEDS: OXCARBAZEPINE 150 MG TABLET PO SCH ×3 (08:33→17:05)
[2019-02-23] MEDS: PANTOPRAZOLE 40 MG TABLET.DR PO SCH (08:33)
[2019-02-23] MEDS: LIDOCAINE 5% (PATCH) 1 EA PATCH TP SCH (08:33)
[2019-02-23] MEDS: NICOTINE PATCH (21MG) 21 MG PATCH.TD24 TD SCH (08:33)
--- NOTE | 2019-02-23 09:36 | NUR ---
Laci from [facility] ([phone]. [phone]) called the SW and stated that he would like to assess the pt for their program on their phone today.
--- NOTE | 2019-02-23 13:17 | NUR ---
Group Note Goal: Patient will attend group being held today from 10am -10:30 in the activities room and participate and/or actively listen to peers and be respectful. Intervention: SW invited patient to attend group session with peers regarding their support system. Response: Patient was manic and presenting with flight of ideas and tangential speech. Pt. could not participate in group session. Plan: Patient will be invited to attend next foster care social worker group session held.
--- NOTE | 2019-02-23 14:48 | NUR ---
GPS RN NOTE PT REQUESTED NAPROXEN 500 MG FOR BACK PAIN AND KLONOPIN 0.5MG FOR FEELING ANXIOUS AND RESTLESS, ADMINISTERED ORDERED.
[2019-02-23] MEDS: clonazePAM 0.5 MG TABLET PO PRN (14:58)
[2019-02-23 16:00] VITALS: BP 108/71
[2019-02-23 20:00] VITALS: BP 120/58
[2019-02-24] MEDS: IPRATROPIUM NEB FS 0.5 MG/2.5 ML AMPUL.NEB NEB SCH ×4 (01:30→19:30)
[2019-02-24] MEDS: TEMAZEPAM 7.5 MG CAPSULE PO PRN (02:07)
--- NOTE | 2019-02-24 02:07 | NUR ---
RN NOTES: -2100 ABLE TO SLEEP AT SHORT INTERVALS,. -0145 AWAKE, SHE REQUEST FOR HER SLEEPING PILL. NON PHARMACOLOGIC INTERVENTION RENDERED.
--- NOTE | 2019-02-24 02:56 | NUR ---
RN NOTES: ABLE TO REST AND SLEEP, KEPT ON CLOSE WATCH.
[2019-02-24] MEDS: PANTOPRAZOLE 40 MG TABLET.DR PO SCH (07:45)
[2019-02-24 08:00] VITALS: BP 120/79
[2019-02-24] MEDS: NICOTINE PATCH (21MG) 21 MG PATCH.TD24 TD SCH (08:25)
[2019-02-24] MEDS: OXCARBAZEPINE 150 MG TABLET PO SCH ×3 (08:25→16:37)
[2019-02-24] MEDS: LIDOCAINE 5% (PATCH) 1 EA PATCH TP SCH (08:26)
[2019-02-24 15:57] VITALS: BP 123/61
[2019-02-24 20:00] VITALS: BP 110/71
[2019-02-25] MEDS: IPRATROPIUM NEB FS 0.5 MG/2.5 ML AMPUL.NEB NEB SCH ×4 (00:37→19:30)
[2019-02-25] MEDS: TEMAZEPAM 7.5 MG CAPSULE PO PRN (00:39)
--- NOTE | 2019-02-25 00:39 | NUR ---
Unable to sleep, exercising at her bedside at this time, requested for sleeping pill during rounding. Temazepam 7.5 mg po given.
[2019-02-25] MEDS: NAPROXEN 500 MG TABLET PO PRN (05:03)
--- NOTE | 2019-02-25 05:04 | NUR ---
C/O PAIN IN HER RECTAL AREA, NAPROXEN 500 MG TAB PO GIVEN.
[2019-02-25 08:00] VITALS: BP 95/68
[2019-02-25] MEDS: LIDOCAINE 5% (PATCH) 1 EA PATCH TP SCH (08:51)
[2019-02-25] MEDS: PANTOPRAZOLE 40 MG TABLET.DR PO SCH (08:51)
[2019-02-25] MEDS: OXCARBAZEPINE 150 MG TABLET PO SCH ×3 (08:51→16:22)
[2019-02-25] MEDS: NICOTINE PATCH (21MG) 21 MG PATCH.TD24 TD SCH (08:51)
[2019-02-25 16:00] VITALS: BP 102/66
[2019-02-25 20:21] VITALS: BP 125/75
[2019-02-26] MEDS: IPRATROPIUM NEB FS 0.5 MG/2.5 ML AMPUL.NEB NEB SCH ×4 (00:55→20:12)
[2019-02-26] MEDS: NAPROXEN 500 MG TABLET PO PRN (06:44)
--- NOTE | 2019-02-26 06:45 | NUR ---
RN Notes Pt is complaining of back pain. Administered Naproxen 500mg PO tab as ordered for pain per Pt request. Will continue to monitor.
[2019-02-26 08:00] VITALS: BP 101/76
[2019-02-26] MEDS: OXCARBAZEPINE 150 MG TABLET PO SCH ×3 (09:00→17:16)
[2019-02-26] MEDS: NICOTINE PATCH (21MG) 21 MG PATCH.TD24 TD SCH (09:03)
[2019-02-26] MEDS: PANTOPRAZOLE 40 MG TABLET.DR PO SCH (09:03)
[2019-02-26] MEDS: LIDOCAINE 5% (PATCH) 1 EA PATCH TP SCH (09:03)
--- NOTE | 2019-02-26 10:42 | NUR ---
GYPSY called Laci from [facility] ([phone]. [phone]) and left a voicemail inquiring about what the next step of the process is due to the pts upcoming discharge.
--- NOTE | 2019-02-26 14:41 | NUR ---
GYPSY called Hipolito ([phone]) the pt's keycase assembler from [facility] and he stated that Laci is currently working on placement and stated that it should be within the next day.
[2019-02-26 16:00] VITALS: BP 104/76
[2019-02-26 19:45] VITALS: BP 101/68
[2019-02-27] MEDS: IPRATROPIUM NEB FS 0.5 MG/2.5 ML AMPUL.NEB NEB SCH ×4 (01:07→20:51)
[2019-02-27] MEDS: TRAMADOL HCL 50 MG TABLET PO PRN (03:53)
[2019-02-27] MEDS: clonazePAM 0.5 MG TABLET PO PRN ×2 (06:33→17:56)
[2019-02-27 08:00] VITALS: BP 106/74
[2019-02-27] MEDS: LIDOCAINE 5% (PATCH) 1 EA PATCH TP SCH (08:26)
[2019-02-27] MEDS: NICOTINE PATCH (21MG) 21 MG PATCH.TD24 TD SCH (08:26)
[2019-02-27] MEDS: OXCARBAZEPINE 150 MG TABLET PO SCH ×3 (08:26→17:56)
[2019-02-27] MEDS: PANTOPRAZOLE 40 MG TABLET.DR PO SCH (08:26)
--- NOTE | 2019-02-27 15:46 | NUR ---
GROUP NOTE: SW prompted pt to attend group on 02/27/19 at 2:30pm discussing conflict resolution techniques for while they are in the hospital and after discharge, but pt unable to participate in group.
[2019-02-27 16:00] VITALS: BP 114/70
[2019-02-27] MEDS: DOCUSATE SODIUM 100 MG CAPSULE PO SCH (17:56)
--- NOTE | 2019-02-27 17:57 | NUR ---
RN NOTE: PATIENT COMPLAINING OF ANXIETY. PRN KLONOPIN GIVEN.
[2019-02-27 20:32] VITALS: BP 86/53
[2019-02-28] MEDS: TEMAZEPAM 7.5 MG CAPSULE PO PRN (01:34)
[2019-02-28] MEDS: IPRATROPIUM NEB FS 0.5 MG/2.5 ML AMPUL.NEB NEB SCH ×2 (02:15→07:35)
[2019-02-28] MEDS: TRAMADOL HCL 50 MG TABLET PO PRN ×2 (02:41→09:42)
[2019-02-28] MEDS: NAPROXEN 500 MG TABLET PO PRN (04:45)
[2019-02-28 08:00] VITALS: BP 108/71
[2019-02-28] MEDS: NICOTINE PATCH (21MG) 21 MG PATCH.TD24 TD SCH (08:23)
[2019-02-28] MEDS: OXCARBAZEPINE 150 MG TABLET PO SCH ×2 (08:23→12:13)
[2019-02-28] MEDS: DOCUSATE SODIUM 100 MG CAPSULE PO SCH (08:23)
[2019-02-28] MEDS: LIDOCAINE 5% (PATCH) 1 EA PATCH TP SCH (08:23)
[2019-02-28] MEDS: PANTOPRAZOLE 40 MG TABLET.DR PO SCH (08:23)
[2019-02-28] MEDS ORDERED: PSYLLIUM SEED 1 PKT PACKET PO SCH (09:00)
[2019-02-28] MEDS ORDERED: SENNOSIDES/DOCUSATE SODIUM 1 TAB TABLET PO SCH (09:00)
--- NOTE | 2019-02-28 09:43 | NUR ---
RN NOTE: PATIENT COMPLAINING OF 9/10 TOOTH PAIN. PRN TRAMADOL GIVEN.
[2019-02-28] MEDS: clonazePAM 0.5 MG TABLET PO PRN (12:13)
--- NOTE | 2019-02-28 12:15 | NUR ---
RN NOTE: PATIENT COMPLAINING OF ANXIETY. KLONOPIN PRN GIVEN.
--- NOTE | 2019-02-28 14:08 | NUR ---
Discharge Note: Pt discharging home to [address], [place] [address]; ([phone]). Pt was transported via taxi at 2PM. [facility] Family human resources office manager, Hipolito ([phone]), was made aware. Upon discharge, the pt appeared to be in a euthymic mood and presented with a distressed affect. Pt denied both suicidal and homicidal ideation as well as auditory and visual hallucinations. Pt was provided with substance abuse referrals as well as smoking cessation that are listed below. Pt will be under the care of her psychiatrist, Dr. Radu Wright ([facility]), [place] at [address] [place] [address]; ; fax was sent to: [phone]. Pt will also be under the care of, [facility], located at [address], [place] [address]; . Substance Abuse Referrals: [facility] [address] [place] [address] Tel. � [facility] � Primary Care � [facility] Provider � Mental Health Treatment � Tele-dermatology � HIV Services � Telemedicine Services [facility] [address] [place] [address] [facility] [address] [place] [address] Smoking Cessation Referrals: [facility] 800-LUNGUSA [facility] [phone]
--- NOTE | 2019-02-28 14:20 | NUR ---
GUM DIPPER NOTE: PATIENT IS A 58 YEAR OLD FEMALE DISCHARGED HOME TO [address] [facility] [id number] . PATIENT�S [place] FAMILY DRUG ENFORCEMENT ADMINISTRATION AGENT KONSTANTIN IS MADE AWARE. PATIENT IS IN STABLE CONDITION. VSS. NO ACUTE DISTRESS NOTED. NO COMPLAINTS. COMPLIANT WITH MEDICATION MANAGEMENT. COOPERATIVE WITH PLAN OF CARE. PSYCHIATRIC TREATMENT PLANS MET. MEDICAL TREATMENT PLANS DEFERRED FOR CONTINUAL MONITORING. DENIES SI/HI VAH AT THE TIME OF DISCHARGE. SKIN INTACT AND DOCUMENTED IN CHART. EDUCATED PATIENT ABOUT AFTERCARE WITH COPY PROVIDED. RETURNED PERSONAL BELONGINGS TO PATIENT. MEDICATIONS RECONCILED WITH DR SANTAMARIA AND DR BEAVERS ALONG WITH PSYCHIATRIC DISCHARGE ORDERS. DISCHARGE PAPERWORK SIGNED. FOR FOLLOW UP WITH PSYCHIATRIST DR [facility] [address] [facility] [address] AND SLIP COVER OPERATOR AT [facility] LOCATED AT [address] [facility] [facility] [phone] AT WITHIN 1 WEEK. PATIENT LEFT THE [facility] GPS AT 1410 VIA TAXI.
== END 2019-02-28 14:10 | disposition home or self-care (01) | DRG 885 ==
LOC: ER 00:23 → GPS 20:10
PROVIDERS: ADMIT Psychiatry & Neurology Psychiatry; ATTEND Nurse Practitioner Acute Care
DX: F31.2 Bipolar disorder, current episode manic severe with psychotic features (principal); F23 Brief psychotic disorder; R45.851 Suicidal ideations; E87.1 Hypo-osmolality and hyponatremia; F20.9 Schizophrenia, unspecified; J43.9 Emphysema, unspecified; M41.9 Scoliosis, unspecified; M19.90 Unspecified osteoarthritis, unspecified site; F43.10 Post-traumatic stress disorder, unspecified; F41.9 Anxiety disorder, unspecified; F17.210 Nicotine dependence, cigarettes, uncomplicated; E86.0 Dehydration; E87.6 Hypokalemia; R73.9 Hyperglycemia, unspecified; F14.90 Cocaine use, unspecified, uncomplicated; Z91.19 Patient's noncompliance with other medical treatment and regimen
CPT/HCPCS: 36415; 80048-TC; 80061-TC; 80076-TC; 80305; 81000-TC; 83735-TC; 84100-TC; 85025-TC; 87081-TC; G0480; J3490

== ENCOUNTER 2020-01-31 11:59 | Inpatient (IN) | payer MEDICARE, OTHER ==
[~2020-01-31] VITALS: Ht 167.6 cm; Wt 57.6 kg
--- NOTE | 2020-01-31 12:00 | NUR ---
PT [id number], ACTING BIZZARE AND LOITERING THE HALLWAYS. PT IS AAOX1, NOT IN RESPIRATORY DISTRESS, HOOKED TO FLOOR WAXER, KEPT RESTED AND COMFORTABLE. WILL CONTINUE TO MONITOR. SITTER AT BEDSIDE.
[2020-01-31] MEDS ORDERED: OLANZAPINE 10 MG VIAL IM ONE ×2 (12:01→12:30)
--- NOTE | 2020-01-31 12:05 | NUR ---
SEEN AND EXAMINED BY .
--- NOTE | 2020-01-31 12:10 | NUR ---
URINE SPECIMEN COLLECTED AND SENT TO LAB.
--- NOTE | 2020-01-31 12:15 | NUR ---
ER PHLEB AT BEDSIDE FOR BLOOD DRAW.
[2020-01-31 12:21] LABS: BASOPHILS % (AUTO) 0.2 % (0.0-2.0); HEMATOCRIT 41 % (33-45); HEMOGLOBIN 13.6 g/dL (11.5-14.8); LYMPHOCYTES # (AUTO) 1.8 /CMM (0.8-4.8); LYMPHOCYTES % (AUTO) 13.7 % (20.0-44.0); MEAN CORPUSCULAR HGB CONC 33 g/dl (31.0-36.0); MEAN CORPUSCULAR VOLUME 92 fL (82-100); NEUTROPHILS # (AUTO) 9.6 /CMM (1.8-8.9); NEUTROPHILS % (AUTO) 71.1 % (43.0-81.0); PLATELET COUNT (AUTO) 228 /CMM (150-450); RED BLOOD CELL COUNT(AUTO) 4.46 MIL/uL (4.0-5.2); WHITE BLOOD COUNT (AUTO) 13.5 K/uL (4.3-11.0)
[2020-01-31 12:23] LABS: BILIRUBIN,URINE Negative (NEGATIVE); BLOOD, URINE Small Ery/uL (NEGATIVE); COLOR,URINE Yellow (YELLOW); KETONES,URINE Negative (NEGATIVE); LEUKOCYTE ESTERASE ,URINE Negative (NEGATIVE); NITRITE, URINE Positive (NEGATIVE); PROTEIN,URINE Trace mg/dl (NEGATIVE); UGLUCOSE Negative (NEGATIVE); UROBILINOGEN,URINE 0.2 EU/dL (0.2)
[2020-01-31 12:46] LABS: ALANINE AMINOTRANSFERASE 104 U/L (12-78); ALBUMIN 4.2 g/dL (3.4-5.0); ALCOHOL, BLOOD < 3 mg/dL (0-0); ALKALINE PHOSPHATASE 71 U/L (46-116); ASPARTATE AMINOTRANSFERASE 50 U/L (15-37); BILIRUBIN,DIRECT 0.2 mg/dL (0.0-0.2); BILIRUBIN,TOTAL 0.7 mg/dL (0.2-1.0); CALCIUM, SERUM 9.8 mg/dL (8.5-10.1); CARBON DIOXIDE 24 mmol/L (21-32); CHLORIDE 105 mmol/L (98-107); CREATININE 1.3 mg/dL (0.6-1.3); GLUCOSE 130 mg/dL (74-106); POTASSIUM 3.8 mmol/L (3.5-5.1); SODIUM SERUM 143 mmol/L (136-145); TOTAL PROTEIN, SERUM 8.1 g/dL (6.4-8.2); UREA NITROGEN, BLOOD 49 mg/dL (7-18)
--- NOTE | 2020-01-31 12:48 | NUR ---
RESTORATION ECOLOGIST FROM SENDING FACILITY: JON MARCIAL [phone] EXT [phone]
[2020-01-31 12:50] LABS: ACETAMINOPHEN < 2 ug/ml (10-30); SALICYLATE 0.5 mg/dL (2.8-20.0)
[2020-01-31 12:54] LABS: APPEARANCE,URINE SLIGHTLY CLOUDY (CLEAR); BACTERIA,URINE Many /HPF (None Seen); SQUAMOUS EPITHELIAL CELL,UR Few /HPF (None Seen)
[2020-01-31] MEDS ORDERED: LORAZEPAM INJ 2 MG/ML VIAL ONE ×2 (14:17→20:27)
[2020-01-31] MEDS ORDERED: LORAZEPAM INJ 2 MG/ML VIAL IV ONE (14:30)
[2020-01-31] MEDS ORDERED: LORAZEPAM INJ 2 MG/ML VIAL IM/IV ONE (14:30)
[2020-01-31] MEDS ORDERED: CEPHALEXIN MONOHYDRATE 500 MG CAPSULE PO ONE ×2 (14:30)
--- NOTE | 2020-01-31 18:03 | NUR ---
CALLED KORIN FOR CRISIS EVAL. ONCE DONE EVALUATING PT AT [place] WILL HEAD OVER TO [facility].
[2020-01-31] MEDS ORDERED: LORAZEPAM INJ 2 MG/ML VIAL IM ONE (20:30)
--- NOTE | 2020-01-31 23:39 | NUR ---
pt transfered to [address] [place] [address] overflow via gurney.
--- NOTE | 2020-01-31 23:47 | NUR ---
COVID SWAB COLLECTED AND SENT TO LAB.
--- NOTE | 2020-01-31 23:50 | NUR ---
GPS ADMISSION NOTE RECEIVED PATIENT FROM ER VIA AZEBRLALITHA; ADMITTING DIAGNOSIS OF PSYCHOSIS R/O COVID19; RESULTS PENDING. PATIENT AWAKE, ALERT ORIENTED X 1-2; LETHARGIC AND CONFUSED. GUATEMALAN SPEAKING. PATIENT ON A 5150 HOLD, PER HOLD PATIENT IS A LITTLE AGITATED AND BIZZARE. PATIENT IN NO S/SX OF ACUTE DISTRESS AT THIS TIME. NO SOB NOTED. PATIENT'S BREATHING IS EVEN AND UNLABORED. PATIENT IS ON RA TOLERATING WELL. SATURATING >95% AT THE MOMENT.PATIENT WAS GIVEN ZYPREXA AND ATIVAN IN ER. PATIENT ASSISTED WITH TURNING AND REPOSITIONING Q2HR AND PRN FOR COMFORT AND CIRCULATION. PATIENT HAS NO NEEDS AT THIS TIME. PATIENT DENIES SUICIDE THOUGHTS AND HOMICIDAL IDEATIONS AT THIS TIME. PATIENT UNABLE TO SIGN AND REFUSED TO SIGN ANY PAPERWORK. PATIENT HAS BEEN ADVISED OF HER HOLD AND PT RIGHTS BOOKLET WERE GIVEN. PATIENT IS UNDER PSYCHIATRIC CARE OF DR. SANTAMARIA AND MEDICAL CARE OF DR. PATEL. PATIENT BELONGINGS WERE INVENTORIED AND CHECKED FOR CONTRABAND. ALL CONTRABAND REMOVED AND ENDORSED TO PUMP STITCHER TO FOR SAFE KEEPING IN THE CONTRABAND LOCKER. NO CONTRABAND NOTED. PATIENT ADVANCED DIRECTIVE PREFERENCE, IMMUNIZATIONS QUESTIONNAIRE, AND OTHER NECESSARY PAPERWORK COMPLETED. PATIENT SKIN ASSESSMENT COMPLETED.PATIENT ORIENTED TO ROOM, FLOOR/UNIT AND STAFF WITH ALL QUESTIONS ANSWERED.KEPT PATIENT CLEAN , DRY AND COMFORTABLE.SAFETY MEASURES HAVE BEEN PROVIDED AND IMPLEMENTED. PATIENT BED ALARM IS ON. HEAD OF BED ELEVATED. BED IS LOCKED, IN LOWEST POSITION AND SIDE RAILS UP. CALL LIGHT WITHIN REACH OF THE PATIENT. ISOLATION PRECAUTIONS IN PLACE. WILL CONTINUE TO MONITOR AND REASSESS FOR ANY CHANGES [id number]. WILL ATTEND TO ALL MD ADMITTING ORDERS.
[2020-02-01] MEDS ORDERED: ACETAMINOPHEN 325 MG TABLET PO PRN (00:30)
[2020-02-01] MEDS ORDERED: diphenhydrAMINE HCL ELIX 25 MG/10 ML UDC PO PRN (00:30)
[2020-02-01] MEDS ORDERED: MAGNESIUM HYDROXIDE 30 ML UDC PO PRN (00:30)
[2020-02-01] MEDS ORDERED: MAG HYDROX/AL HYDROX/SIMETH 30 ML UDC PO PRN (00:30)
[2020-02-01] MEDS ORDERED: BLOOD SUGAR DIAGNOSTIC 1 EACH STRIP IN ONE (01:00)
[2020-02-01] MEDS: LORAZEPAM 1 MG TABLET PO PRN (03:00)
--- NOTE | 2020-02-01 03:00 | NUR ---
RN NOTES SCANNED MEDS DID NOT SAVE. (ATIVAN/LORAZEPAM 1 MG TABLET) GIVEN TO PT. THERAPIST SPEECH MADE AWARE.
[2020-02-01 04:00] VITALS: BP 115/69
--- NOTE | 2020-02-01 06:33 | NUR ---
RN CLOSING NOTE: PATIENT REMAINS IN ROOM. NO SIGNS OF RESPIRATORY DISTRESS. SAFETY MEASURES IMPLEMENTED, BED IN LOWEST POSITION, LOCKED, SIDE RAILS UP, CALL LIGHT WITHIN REACH. ALL NEEDS AND ORDERS ADDRESSED DURING THE SHIFT. ALL DUE MEDS GIVEN ORDERED & SCHEDULED ; PATIENT TOLERATED WELL.PATIENT KEPT CLEAN AND COMFORTABLE WITHIN THE SHIFT. ENDORSED TO INCOMING SHIFT RN FOR CONTINUITY OF CARE.
--- NOTE | 2020-02-01 07:30 | NUR ---
RN OPENING NOTES RECEIVED PT IN BED. AWAKE ALERT AND ORIENTEDX2. NO CARDIAC OR RESPIRATORY DISTRESS NOTED. NO SOB NOTED. SATURATING WELL ON ROOM AIR. PT IS AMBULATORY. ON 5150 HOLD. HOWEVER, SHE IS STILL PENDING FOR COVD AT THIS TIME. PER REPORT PT WAS HAVING BIZARRE BEHAVIORS AT THE ER UPON ADMISSION. PT IS CALM AND COOPERATIVE AT THIS TIME. NO HOMICIDAL OR SUICIDAL IDEATIONS. SITTER IS PRESENT MONITORING THE PT. SAFETY PRECAUTIONS IN PLACE, BED LOCKED AND IN LOW POSITION, SIDE RAILS UP X2. BED ALARM ON. CALL LIGHT WITHIN REACH. NO CONTRABANDS NOTED BY BEDSIDE. WILL CONT TO MONITOR.
[2020-02-01 08:00] VITALS: BP 124/62
[2020-02-01] MEDS ORDERED: CLON0.5T4 PO (08:33)
[2020-02-01] MEDS ORDERED: OXCA300T15 PO (08:33)
[2020-02-01] MEDS ORDERED: BENZ2TAB7 PO (08:33)
[2020-02-01] MEDS ORDERED: TRAZ-257 MT (08:33)
[2020-02-01] MEDS: CEPHALEXIN MONOHYDRATE 250 MG CAPSULE PO SCH ×2 (11:43→17:03)
[2020-02-01] MEDS ORDERED: hydrOXYzine 10 MG TABLET PO PRN (12:30)
--- NOTE | 2020-02-01 13:15 | NUR ---
PSYCH MEDS DR. SANTAMARIA ORDERED HYDROXYZINE, SEROQUEL AND TRILEPTAL. CONSENTS OBTAINED. SIGNED BY . FAXED TO PHARMACY.
[2020-02-01] MEDS: QUETIAPINE FUMARATE 25 MG TABLET PO SCH ×2 (13:30→16:34)
[2020-02-01] MEDS: OXCARBAZEPINE 150 MG TABLET PO SCH ×2 (13:30→16:34)
[2020-02-01] MEDS: IPRATROPIUM BROMIDE 14 GM INHALER (or 12.9 GM) IH SCH ×2 (13:41→19:30)
--- NOTE | 2020-02-01 18:22 | NUR ---
RN CLOSING NOTES PT IN BED. AWAKE ALERT AND ORIENTED X2. NO CARDIAC OR RESPIRATORY DISTRESS NOTED. NO SOB NOTED. SATURATING WELL ON ROOM AIR. PT IS AMBULATORY. ON 5150 HOLD. STILL PENDING FOR COVID AT THIS TIME. P PT IS CALM AND COOPERATIVE AT THIS TIME. NO HOMICIDAL OR SUICIDAL IDEATIONS. SITTER IS PRESENT MONITORING THE PT. SAFETY PRECAUTIONS IN PLACE, BED LOCKED AND IN LOW POSITION, SIDE RAILS UP X2. BED ALARM ON. CALL LIGHT WITHIN REACH. NO CONTRABANDS NOTED BY BEDSIDE. WILL CONT TO MONITOR.
[2020-02-01 20:00] VITALS: BP 102/72
[2020-02-02] MEDS: CEPHALEXIN MONOHYDRATE 250 MG CAPSULE PO SCH ×5 (00:41→23:32)
[2020-02-02] MEDS: IPRATROPIUM BROMIDE 14 GM INHALER (or 12.9 GM) IH SCH ×4 (01:30→19:30)
--- NOTE | 2020-02-02 04:21 | NUR ---
The laboratory has confirmed the client to be Covid negative. Report called in by Lalo Diaz at 3560.
--- NOTE | 2020-02-02 04:39 | NUR ---
gps rn notes COVID 19 RESULT IS NEGATIVE MAGAZINE REPAIRER JIN MADE AWARE SAID TO TRANSFER PTS TO GPS, PTS AFEBRILE V/S STABLE ASYMPTOMATIC, SPOKE TO DACIA CHARGE NURSE GIVE BED 218-1 CHASE RN GIVE REPORT TO GPS RN PAH.
--- NOTE | 2020-02-02 04:44 | NUR ---
GPS RN NOTES PTS TRANSFER TO GPS ROOM 218-1 IN STABLE CONDITION.BELONGINGS ENDORSE TO PAH RN.
--- NOTE | 2020-02-02 05:13 | NUR ---
The patient has been transferred to [facility] in stable conditions. Report given to SAMY DAVID.
--- NOTE | 2020-02-02 05:22 | NUR ---
GPS RN NOTES: PT WAS TRANSFERRED FROM D.O.U VIA WHEELCHAIR AT ABOUT 0445, ACCOMPANIED BY 2 STAFF. PT IS A/O X2-3. HYPERVERBAL, RAMBLING SPEECH, BLUNT AFFECT. PT IS ON 5150 HOLD FOR DTS/GD PLACED ON 01/31/2020 AT 1945. PER HOLD PT WAS BROUGHT TO [facility] ER BY [facility] D/O BIZARRE BEHAVIOR, AGITATION, AND LOITERING IN HALLWAYS. PT IS ON 1:1 DUE SUICIDAL IDEATION WITH INTENT TO CUT HER ARM WITH A SKILSAW. PT WAS ALSO YELLING, DISORGANIZED, AND SUSPICIOUS. PT IS CURRENTLY CALM AND COOPERATIVE. DENIES SI, HI, AT THIS TIME. NO S/S OF DISTRESS. LAYING ON HER BED. WILL CONTINUE TO MONITOR AND ENDORSE TO AM NURSE.
[2020-02-02 06:46] VITALS: BP 105/68
[2020-02-02 06:47] VITALS: BP 105/68
[2020-02-02 08:00] VITALS: BP 112/71
[2020-02-02] MEDS: OXCARBAZEPINE 150 MG TABLET PO SCH ×2 (08:09→17:19)
[2020-02-02] MEDS: PANTOPRAZOLE 40 MG TABLET.DR PO SCH (08:09)
[2020-02-02] MEDS: QUETIAPINE FUMARATE 25 MG TABLET PO SCH ×3 (08:09→17:00)
--- NOTE | 2020-02-02 08:56 | NUR ---
GPS/RN PT REFUSED SEROQUEL OFFERED X3
[2020-02-02 16:00] VITALS: BP 93/65
[2020-02-02 20:06] VITALS: BP 101/52
--- NOTE | 2020-02-02 21:06 | NUR ---
GPS RN NOTE: INSOMNIA PT. UNABLE TO SLEEP AND REQUESTED SLEEPING PILL. ADMINISTERED RESTORIL 15 MG PO PRN ORDERED. WILL CONTINUE TO MONITOR FOR SAFETY AND BEHAVIOR Addendum: 02/02/20 at 2221 by CHAMP RENEE RN ADMINISTERED RESTORIL 15 MG PO PRN @ [id number]
[2020-02-02] MEDS: TEMAZEPAM 15 MG CAPSULE PO PRN (22:06)
[2020-02-03] MEDS: IPRATROPIUM BROMIDE 14 GM INHALER (or 12.9 GM) IH SCH ×5 (01:30→19:58)
[2020-02-03] MEDS: CEPHALEXIN MONOHYDRATE 250 MG CAPSULE PO SCH ×4 (05:28→23:12)
[2020-02-03 06:27] LABS: BASOPHILS % (AUTO) 0.4 % (0.0-2.0); EOSINOPHILS % (AUTO) 3.6 % (0.0-6.0); HEMATOCRIT 41 % (33-45); HEMOGLOBIN 13.8 g/dL (11.5-14.8); LYMPHOCYTES # (AUTO) 2.3 /CMM (0.8-4.8); LYMPHOCYTES % (AUTO) 35.5 % (20.0-44.0); MEAN CORPUSCULAR HGB CONC 33 g/dl (31.0-36.0); MEAN CORPUSCULAR VOLUME 91 fL (82-100); MONOCYTES % (AUTO) 14.9 % (2.0-12.0); NEUTROPHILS # (AUTO) 2.9 /CMM (1.8-8.9); NEUTROPHILS % (AUTO) 45.6 % (43.0-81.0); PLATELET COUNT (AUTO) 222 /CMM (150-450); RED BLOOD CELL COUNT(AUTO) 4.54 MIL/uL (4.0-5.2); WHITE BLOOD COUNT (AUTO) 6.4 K/uL (4.3-11.0)
[2020-02-03 06:52] LABS: CALCIUM, SERUM 9.1 mg/dL (8.5-10.1); CREATININE 0.7 mg/dL (0.6-1.3); POTASSIUM 4.3 mmol/L (3.5-5.1)
[2020-02-03 06:58] LABS: ALBUMIN 3.4 g/dL (3.4-5.0); BILIRUBIN,TOTAL 0.2 mg/dL (0.2-1.0); MAGNESIUM 2.1 mg/dL (1.8-2.4); PHOSPHORUS 3.2 mg/dL (2.5-4.9); TOTAL PROTEIN, SERUM 7.2 g/dL (6.4-8.2)
[2020-02-03 08:00] VITALS: BP 114/76
[2020-02-03] MEDS: QUETIAPINE FUMARATE 25 MG TABLET PO SCH (08:34)
[2020-02-03] MEDS: OXCARBAZEPINE 150 MG TABLET PO SCH ×2 (08:36→17:08)
[2020-02-03] MEDS: PANTOPRAZOLE 40 MG TABLET.DR PO SCH (08:36)
[2020-02-03] MEDS: LORAZEPAM 1 MG TABLET PO PRN (15:27)
[2020-02-03 16:00] VITALS: BP 113/73
[2020-02-03] MEDS: NICOTINE PATCH (21MG) 21 MG PATCH.TD24 TD SCH (17:08)
[2020-02-03 19:27] VITALS: BP 100/68
[2020-02-03] MEDS: TEMAZEPAM 15 MG CAPSULE PO PRN (22:58)
--- NOTE | 2020-02-03 22:58 | NUR ---
GPS RN NOTE: INSOMNIA PATIENT VERBALIZED THAT SHE IS UNABLE TO SLEEP & NEEDS HER RESTORIL. PRN RESTORIL 15 MG 1 CAP PO GIVEN. WILL CONTINUE TO MONITOR FOR EFFECTIVENESS.
[2020-02-04] MEDS: IPRATROPIUM BROMIDE 14 GM INHALER (or 12.9 GM) IH SCH ×2 (01:30→19:30)
[2020-02-04] MEDS: LORAZEPAM 1 MG TABLET PO PRN (03:51)
--- NOTE | 2020-02-04 03:51 | NUR ---
GPS RN NOTE: ANXIETY PATIENT VERBALIZED THAT SHE IS FEELING NERVOUS, ANXIOUS & RESTLESS & WANTED TO GET ATIVAN AT THIS TIME. PRN ATIVAN 1 MG PO GIVEN ORDERED. WILL CONTINUE TO MONITOR FOR ANY CHANGES.
[2020-02-04] MEDS: CEPHALEXIN MONOHYDRATE 250 MG CAPSULE PO SCH ×4 (05:57→23:09)
[2020-02-04 08:00] VITALS: BP 109/68
[2020-02-04] MEDS: OXCARBAZEPINE 150 MG TABLET PO SCH (08:31)
[2020-02-04] MEDS: NICOTINE PATCH (21MG) 21 MG PATCH.TD24 TD SCH (08:31)
[2020-02-04] MEDS: PANTOPRAZOLE 40 MG TABLET.DR PO SCH (08:31)
--- NOTE | 2020-02-04 10:03 | NUR ---
INITIAL DISCHARGE PLAN: Pt currently lives in an apartment alone located at [address] [place] [address] [place], [address] [facility], [place] [address]; ([phone]). Per pt, she would like to return to her home. SW will help form a safe and proper discharge in collaboration with pt and the MD.
[2020-02-04] MEDS: hydrOXYzine PAMOATE 25 MG CAPSULE PO PRN (12:18)
--- NOTE | 2020-02-04 15:22 | NUR ---
SUBSTANCE ABUSE INTERVENTION: SW provided substance abuse intervention to pt and discussed alternative ways of coping and dealing with stress.
[2020-02-04 16:00] VITALS: BP 102/68
--- NOTE | 2020-02-04 16:12 | NUR ---
Individual Counseling: This SW met with the patient at bedside to provide counseling regarding support systems. However, patient deemed not appropriate for therapeutic milieu at this time. Patient will be invited to participate in the next therapeutic milieu.
[2020-02-04 20:11] VITALS: BP 90/56
[2020-02-04] MEDS ORDERED: OXCARBAZEPINE 150 MG TABLET PO SCH (22:00)
[2020-02-05] MEDS: IPRATROPIUM BROMIDE 14 GM INHALER (or 12.9 GM) IH SCH ×4 (01:30→19:30)
[2020-02-05] MEDS: TEMAZEPAM 15 MG CAPSULE PO PRN (02:26)
--- NOTE | 2020-02-05 02:26 | NUR ---
GPS RN NOTE: INSOMNIA PT. C/O UNABLE TO SLEEP. ADMINISTERED RESTORIL 15 MG PO PRN ORDERED. WILL CONTINUE TO MONITOR FOR SAFETY AND BEHAVIOR
[2020-02-05] MEDS: CEPHALEXIN MONOHYDRATE 250 MG CAPSULE PO SCH ×3 (05:04→17:01)
[2020-02-05 08:00] VITALS: BP 107/74
[2020-02-05] MEDS: PANTOPRAZOLE 40 MG TABLET.DR PO SCH (08:09)
[2020-02-05] MEDS: NICOTINE PATCH (21MG) 21 MG PATCH.TD24 TD SCH (08:47)
[2020-02-05] MEDS ORDERED: OXCARBAZEPINE 150 MG TABLET PO SCH (09:00)
[2020-02-05] MEDS: hydrOXYzine PAMOATE 25 MG CAPSULE PO PRN ×2 (12:03→21:28)
--- NOTE | 2020-02-05 12:03 | NUR ---
RN NOTE: ANXIETY PT C/O INCREASING ANXIETY. PT INCREASINGLY PARANOID AND PACING HALLWAY. MEDICATED WITH VISTARIL PO PRN.
[2020-02-05] MEDS: LIDOCAINE 5% (PATCH) 1 EA PATCH TP SCH (13:32)
--- NOTE | 2020-02-05 15:20 | NUR ---
INDIVIDUAL INTERVENTION: Pt is not appropriate for individual intervention at this time. Pt is manic with slurred and hyperverbal speech. Pts thoughts are disorganized and pt is walking back and forth from the activity room to the nurses station asking for various things. SW was unable to engage pt in conversation.
[2020-02-05 16:00] VITALS: BP 96/62
[2020-02-05] MEDS: OXCARBAZEPINE 150 MG TABLET PO SCH (17:02)
[2020-02-05 20:03] VITALS: BP 115/71
[2020-02-06] MEDS: TEMAZEPAM 15 MG CAPSULE PO PRN (00:04)
[2020-02-06] MEDS: CEPHALEXIN MONOHYDRATE 250 MG CAPSULE PO SCH ×4 (00:07→17:42)
[2020-02-06] MEDS: IPRATROPIUM BROMIDE 14 GM INHALER (or 12.9 GM) IH SCH ×4 (01:30→19:30)
--- NOTE | 2020-02-06 01:54 | NUR ---
GPS RN NOTES: PT REFUSED 1929 AND 129 ATROVENT INHALER FOR ASTHMA ORDERED. STATES " I'M FINE I DON'T NEED IT". PT HAS NO S/S OF RESPIRATORY DISTRESS. WILL CONTINUE TO MONITOR PT FOR ANY CHANGE IN CONDITION.
--- NOTE | 2020-02-06 06:28 | NUR ---
PT REPORTED BACK PAIN LEVEL OF 5/10. TYLENOL 352MG 2 TABS GIVEN PO. WILL CONTINUE TO MONITOR.
[2020-02-06 08:00] VITALS: BP 117/79
[2020-02-06] MEDS: PANTOPRAZOLE 40 MG TABLET.DR PO SCH (08:03)
[2020-02-06] MEDS: NICOTINE PATCH (21MG) 21 MG PATCH.TD24 TD SCH (08:05)
[2020-02-06] MEDS: OXCARBAZEPINE 150 MG TABLET PO SCH ×2 (08:05→16:36)
--- NOTE | 2020-02-06 09:00 | NUR ---
RN NOTE- PT W LESS INTRUSIVE BEHAVIOR TODAY. LESS LABILE NOT HYPERVERBAL AND LESS PRESSURED SPEECH, PO INTAKE GOOD MED COMPLIANT NEEDY POOR EYE CONTACT DENIES ALL AT THIS TIME
[2020-02-06] MEDS: LIDOCAINE 5% (PATCH) 1 EA PATCH TP SCH (12:14)
--- NOTE | 2020-02-06 14:00 | NUR ---
INDIVIDUAL INTERVENTION: Pt is not appropriate for individual intervention at this time. Pt is manic with slurred and hyperverbal speech. Pt has poor boundaries and is focused on calling her child welfare caseworker and sponsor.
[2020-02-06] MEDS: hydrOXYzine PAMOATE 25 MG CAPSULE PO PRN (14:55)
[2020-02-06 16:00] VITALS: BP 119/88
--- NOTE | 2020-02-06 19:52 | NUR ---
GPS RN NOTES: PT REFUSED 1929 ATROVENT INHALER FOR ASTHMA ORDERED. STATES " I HAD IT THIS MORNING SO I'M FINE, I'LL LET YOU KNOW WHEN I NEED IT". PT HAS NO S/S OF RESPIRATORY DISTRESS. WILL CONTINUE TO MONITOR PT FOR ANY CHANGE IN CONDITION.
[2020-02-06 20:01] VITALS: BP 130/80
[2020-02-06] MEDS: LORAZEPAM 1 MG TABLET PO PRN (22:44)
[2020-02-07] MEDS: CEPHALEXIN MONOHYDRATE 250 MG CAPSULE PO SCH ×5 (00:10→23:12)
[2020-02-07] MEDS: IPRATROPIUM BROMIDE 14 GM INHALER (or 12.9 GM) IH SCH (01:30)
--- NOTE | 2020-02-07 07:08 | NUR ---
GPS RN OPENING NOTES RECEIVED PT PACING IN THE HALLWAY, AO X2-3. PT APPEARS, RESTLESS, DISORGANIZED, DISHEVELED, NEEDY, ATTENTION SEEKING. NO S/S OF ANY ACUTE DISTRESS NOTED. RESPIRATION EVEN AND UNLABORED WITH EQUAL RISE AND FALL IN THE CHEST. PT DENIES SI AT THIS TIME. FALL AND SAFETY PRECAUTIONS IN PLACE AND OBSERVED AT ALL TIMES. BED IN LOWEST LOCKED POSITION, SIDE RAILS UP,HOB ELEVATED TO SEMI FOWLERS POSITION, CALL LIGHT WITHIN REACH. WILL CONTINUE TO MONITOR Q 15 MIN FOR SAFETY AND BEHAVIOR.
[2020-02-07 08:00] VITALS: BP 108/65
[2020-02-07] MEDS: PANTOPRAZOLE 40 MG TABLET.DR PO SCH (08:25)
[2020-02-07] MEDS: OXCARBAZEPINE 150 MG TABLET PO SCH ×2 (09:32→16:41)
[2020-02-07] MEDS: NICOTINE PATCH (21MG) 21 MG PATCH.TD24 TD SCH (09:33)
[2020-02-07] MEDS: LIDOCAINE 5% (PATCH) 1 EA PATCH TP SCH (12:14)
[2020-02-07] MEDS: hydrOXYzine PAMOATE 25 MG CAPSULE PO PRN (13:59)
--- NOTE | 2020-02-07 14:00 | NUR ---
PT C/O INCREASING ANXIETY, RESTLESS AND PACING HALLWAY. PER PATIENT REQUEST, VISTARIL 50MG PO Q4HRS PRN WAS ADMINISTERED PER ORDER. WILL CONTINUE TO MONITOR.
[2020-02-07 16:00] VITALS: BP 102/76
--- NOTE | 2020-02-07 16:00 | NUR ---
DR SANTAMARIA HAD TELEMEDICINE/HEALTH ASSESSMENT AND CONSULT WITH PATIENT. NO NEW ORDERS. WILL CONTINUE TO MONITOR
--- NOTE | 2020-02-07 16:24 | NUR ---
INDIVIDUAL INTERVENTION: Pt is not appropriate for individual intervention at this time. Pt is manic with slurred and hyperverbal speech. Pt refused to talk to SW stating she wanted to continue talking to her new friend.
--- NOTE | 2020-02-07 18:57 | NUR ---
GPS RN CLOSING NOTES PT RESTING IN BED AT THIS TIME. PT REMAINED STABLE THROUGHOUT SHIFT. ALL CARE, NEEDS, TREATMENT AND MEDICATIONS ADMINISTERED ANTICIPATED PER ORDER. FALL AND SAFETY PRECAUTIONS IN PLACE AND OBSERVED AT ALL TIMES. BED IN LOWEST LOCKED POSITION, SIDE RAILS UP,HOB ELEVATED TO SEMI FOWLERS POSITION, CALL LIGHT WITHIN REACH. WILL ENDORSE TO FARM OR RANCH ANIMAL CARETAKER NURSE FOR ALETA.
[2020-02-07 20:16] VITALS: BP 99/56
[2020-02-08] MEDS: TEMAZEPAM 15 MG CAPSULE PO PRN (01:01)
--- NOTE | 2020-02-08 01:01 | NUR ---
GPS RN NOTE: INSOMNIA PT. C/O OF UNABLE TO SLEEP. ADMINISTERED RESTORIL 15 MG PO PRN ORDERED. WILL CONTINUE TO MONITOR FOR SAFETY AND BEHAVIOR
[2020-02-08] MEDS: CEPHALEXIN MONOHYDRATE 250 MG CAPSULE PO SCH (05:09)
[2020-02-08] MEDS: LORAZEPAM 1 MG TABLET PO PRN (05:13)
--- NOTE | 2020-02-08 05:13 | NUR ---
GPS RN NOTE: ANXIETY PT. C/O OF BEING ANXIOUS. ADMINISTERED ATIVAN 1MG PO PRN ORDERED. WILL CONTINUE TO MONITOR FOR SAFETY AND BEHAVIOR
[2020-02-08 08:00] VITALS: BP 103/67
[2020-02-08] MEDS: PANTOPRAZOLE 40 MG TABLET.DR PO SCH (08:26)
[2020-02-08] MEDS: NICOTINE PATCH (21MG) 21 MG PATCH.TD24 TD SCH (08:26)
[2020-02-08] MEDS: OXCARBAZEPINE 150 MG TABLET PO SCH (08:26)
--- NOTE | 2020-02-08 08:35 | NUR ---
DISCHARGE NOTE: Pt discharging via [facility] taxi voucher at 2:00PM home to [address] [facility], [address], [place] [address]; ([phone]). Pt has no family to notify. Pts mood is euthymic with congruent affect. Pt denied suicidal/homicidal ideation and denied auditory/visual hallucinations. Pt was provided with substance abuse referrals as well as smoking cessation that are listed below. Pt will be under the care of her psychiatrist, Dr. Radu Wright ([facility]), located at [address] [place] [address]; ; fax was sent to: [phone]. Pt will also be under the care of, [facility], located at [address] [facility] [address], [place] [address]; . The multidisciplinary exit care form was done, printed, signed, and given to the patient. Substance Abuse Referrals: [facility] [address] [facility] [place] [address] Tel. [facility] Provider Mental Health Treatment Tele-dermatology HIV Services Telemedicine Services [place] [address] [place] [address] [facility] [address] [place] [address] Smoking Cessation Referrals: [facility] 800-LUNGUSA [facility] [phone]
[2020-02-08] MEDS: LIDOCAINE 5% (PATCH) 1 EA PATCH TP SCH (11:40)
--- NOTE | 2020-02-08 13:35 | NUR ---
GPS MARKET DEVELOPMENT EXECUTIVE NOTE : PATIENT DISCHARGED TODAY [facility]IA [facility] AT [address] [place] [address] [address],[place] [address] .ACCOMPANIED BY 1 STAFF TO THE MAIN LOBBY PATIENT IS IN STABLE CONDITION. VSS. NO ACUTE DISTRESS NOTED. NO COMPLAINTS. COMPLIANT WITH MEDICATION MANAGEMENT. COOPERATIVE WITH PLAN OF CARE. PSYCHIATRIC TREATMENT PLANS MET. MEDICAL TREATMENT PLANS DEFERRED FOR CONTINUAL MONITORING. DENIES SI/HI/VAH AT THE TIME OF DISCHARGE. SKIN INTACT . EDUCATED PATIENT ABOUT AFTERCARE WITH COPY PROVIDED. RETURNED PERSONAL BELONGINGS TO PATIENT. MEDICATIONS RECONCILED WITH ALONG WITH PSYCHIATRIC DISCHARGE ORDERS. DISCHARGE PAPERWORK SIGNED. FOR FOLLOW UP WITH PSYCHIATRIST AND TIMBER BUCKER WITHIN 1 WEEK.
== END 2020-02-08 14:00 | disposition home or self-care (01) | DRG 885 ==
LOC: ER 12:00 → GPSOV1 23:17 → GPS 02-02 04:52
PROVIDERS: ADMIT Psychiatry & Neurology Psychiatry; ATTEND Internal Medicine
DX: F31.9 Bipolar disorder, unspecified (principal); N17.0 Acute kidney failure with tubular necrosis; R45.851 Suicidal ideations; N39.0 Urinary tract infection, site not specified; F15.20 Other stimulant dependence, uncomplicated; F14.20 Cocaine dependence, uncomplicated; F29 Unspecified psychosis not due to a substance or known physiological condition; F41.9 Anxiety disorder, unspecified; K21.9 Gastro-esophageal reflux disease without esophagitis; J43.9 Emphysema, unspecified; M19.90 Unspecified osteoarthritis, unspecified site; F43.10 Post-traumatic stress disorder, unspecified; F20.9 Schizophrenia, unspecified; F17.210 Nicotine dependence, cigarettes, uncomplicated; M62.81 Muscle weakness (generalized); R27.8 Other lack of coordination; Z91.81 History of falling; R74.0 Nonspecific elevation of levels of transaminase and lactic acid dehydrogenase [LDH]; M41.9 Scoliosis, unspecified; R45.1 Restlessness and agitation; D72.829 Elevated white blood cell count, unspecified; R79.89 Other specified abnormal findings of blood chemistry
CPT/HCPCS: 36415; 80048-TC; 80053-TC; 80076-TC; 80305; 81000-TC; 82962-TC; 83735-TC; 84100-TC; 85025-TC; 87081-TC; 87086-TC; G0480; J2060; J3490; Q0177; U0003-CS

== ENCOUNTER 2020-06-22 13:22 | Inpatient (IN) | payer MEDICARE, OTHER ==
[~2020-06-22] VITALS: Ht 167.6 cm; Wt 64.4 kg
[~2020-06-22 13:22] MED LIST changes: -AMOX875T2 PO; +BENZ2TAB7 PO; +CLON0.5T4 PO; -LIDO30AD10 TP; -NAPR-1009 PO; -ONDA4TAB5 PO; +OXCA300T15 PO; -POLY15DR40 EACHEYE; -TRAM50TA PO; +TRAZ-257 MT
[2020-06-22] MEDS ORDERED: LORAZEPAM 1 MG TABLET ONE (14:12)
[2020-06-22] MEDS ORDERED: POLYVINYL ALCOHOL 15 ML BOTTLE ONE (14:12)
[2020-06-22] MEDS ORDERED: SULFAMETH/TRIMETH 800/160 MG 1 UDTAB TABLET ONE (14:13)
[2020-06-22] MEDS ORDERED: CEPHALEXIN MONOHYDRATE 500 MG CAPSULE PO ONE ×3 (14:13→17:00)
--- NOTE | 2020-06-22 14:19 | NUR ---
bib friend c/o "eye burning" from not wearing shades in the sun yesterday pt family concern more about "psych issues". PT AAOX3, VSS. RR EVEN & UNLABORED. DENIES CP, SOB, DIZZINESS, N/V AT THIS TIME. PT EXPRESSED TO THAT SHE'S SI BUT NO SPECIFIC PLAN. PT CALM & COOPERATIVE, SITTER @ BS & WILL CONT TO MONITOR.
--- NOTE | 2020-06-22 14:24 | NUR ---
MEDICATED PER ERMD ORDER, PT DUNIA WELL.
[2020-06-22] MEDS ORDERED: LORAZEPAM 1 MG TABLET PO ONE (14:30)
[2020-06-22] MEDS ORDERED: SULFAMETH/TRIMETH 800/160 MG 1 UDTAB TABLET PO ONE (14:30)
[2020-06-22] MEDS ORDERED: POLYVINYL ALCOHOL 15 ML BOTTLE OP ONE (14:30)
[2020-06-22] MEDS ORDERED: OLANZAPINE 10 MG VIAL IM ONE ×2 (14:30→14:47)
[2020-06-22 14:48] LABS: BASOPHILS % (AUTO) 0.6 % (0.0-2.0); EOSINOPHILS % (AUTO) 2.7 % (0.0-6.0); HEMATOCRIT 44 % (33-45); HEMOGLOBIN 14.3 g/dL (11.5-14.8); LYMPHOCYTES # (AUTO) 2.3 /CMM (0.8-4.8); LYMPHOCYTES % (AUTO) 43.8 % (20.0-44.0); MEAN CORPUSCULAR HGB CONC 32 g/dl (31.0-36.0); MEAN CORPUSCULAR VOLUME 93 fL (82-100); MONOCYTES # (AUTO) 0.7 /CMM (0.1-1.30); MONOCYTES % (AUTO) 13.8 % (2.0-12.0); NEUTROPHILS % (AUTO) 39.1 % (43.0-81.0); PLATELET COUNT (AUTO) 224 /CMM (150-450); RED BLOOD CELL COUNT(AUTO) 4.75 MIL/uL (4.0-5.2); WHITE BLOOD COUNT (AUTO) 5.2 K/uL (4.3-11.0)
[2020-06-22 15:02] LABS: CALCIUM, SERUM 9.4 mg/dL (8.5-10.1); CARBON DIOXIDE 27 mmol/L (21-32); CHLORIDE 103 mmol/L (98-107); CREATININE 0.6 mg/dL (0.6-1.3); GLUCOSE 93 mg/dL (74-106); SODIUM SERUM 139 mmol/L (136-145); UREA NITROGEN, BLOOD 17 mg/dL (7-18)
[2020-06-22 15:07] LABS: ALANINE AMINOTRANSFERASE 30 U/L (12-78); ALBUMIN 3.6 g/dL (3.4-5.0); ALCOHOL, BLOOD < 3 mg/dL (0-0); ALKALINE PHOSPHATASE 61 U/L (46-116); ASPARTATE AMINOTRANSFERASE 20 U/L (15-37); BILIRUBIN,DIRECT 0.1 mg/dL (0.0-0.2); BILIRUBIN,TOTAL 0.2 mg/dL (0.2-1.0)
[2020-06-22 15:09] LABS: ACETAMINOPHEN 0 ug/ml (10-30)
[2020-06-22 16:29] LABS: BILIRUBIN,URINE NEGATIVE (NEGATIVE); BLOOD, URINE NEGATIVE Ery/uL (NEGATIVE); COLOR,URINE YELLOW (YELLOW); LEUKOCYTE ESTERASE ,URINE MODERATE (NEGATIVE); NITRITE, URINE NEGATIVE (NEGATIVE); PH,URINE 6.5 (5.0-8.0); PROTEIN,URINE NEGATIVE (NEGATIVE); UGLUCOSE NEGATIVE (NEGATIVE); UROBILINOGEN,URINE 0.2 EU/dL (0.2)
[2020-06-22 16:39] LABS: BACTERIA,URINE 1+ /HPF (None Seen); RBC,URINE 0-2 /HPF (0-2); SQUAMOUS EPITHELIAL CELL,UR 0-2 /HPF (None Seen)
--- NOTE | 2020-06-22 16:40 | NUR ---
Patient is resting comfortably in bed with eyes closed. Easily aroused. VSS
--- NOTE | 2020-06-22 17:50 | NUR ---
CALLED TREVA ZUÑIGA
--- NOTE | 2020-06-22 18:02 | NUR ---
merary eta 20 mins
[2020-06-22] MEDS ORDERED: IBUP-1953 PO (18:41)
[2020-06-22] MEDS ORDERED: PANT20TA17 PO (18:41)
[2020-06-22] MEDS ORDERED: CIPR5DRO18 LEFT EAR (18:41)
[2020-06-22] MEDS ORDERED: HYDR50CA5 PO (18:41)
--- NOTE | 2020-06-22 18:44 | NUR ---
LAB CALLED PT COVID-19 RESULT NEGATIVE (-)
--- NOTE | 2020-06-22 20:05 | NUR ---
report given to FRANKIE Pierson for fernando.
[2020-06-22 20:22] VITALS: BP 109/73
[2020-06-22 20:25] VITALS: BP 109/73
[2020-06-22] MEDS ORDERED: MAG HYDROX/AL HYDROX/SIMETH 30 ML UDC PO PRN (21:00)
[2020-06-22] MEDS ORDERED: ACETAMINOPHEN 325 MG TABLET PO PRN (21:00)
[2020-06-22] MEDS ORDERED: BLOOD SUGAR DIAGNOSTIC 1 EACH STRIP IN ONE (21:00)
[2020-06-22] MEDS ORDERED: MAGNESIUM HYDROXIDE 30 ML UDC PO PRN (21:00)
[2020-06-22] MEDS ORDERED: ATARAX PO (21:04)
[2020-06-22] MEDS ORDERED: OXCA300T4 PO (21:04)
--- NOTE | 2020-06-22 21:30 | NUR ---
ADMISSION NOTES: ADMITTED THIS 59Y/O FEMALE TO GPS HOLD 5150 HOLD & GD. PER 5150 HOLD, PATIENT WAS AGGRESSIVE TOWARDS CLINICIAN. PT. STATED SHE IS NOT FEELING GOOD & HER MIND IS NOT RIGHT. PT. STATED TO CLINICIAN," I AM DELUSIONAL." PT. WAS TALKING IN A CONFUSED MANNER, UNABLE TO ANSWER SPECIFIC & SIGNIFICANT QUESTIONS. UPON FACE TO FACE ASSESSMENT PATIENT IS A&O X 2-3, BLUNTED AFFECT, GUARDED ,UNCOOPERATIVE ,ANXIOUS, PARANOID, DISHEVEL, POOR HYGIENE ,EASILY AGITATED, POOR EYE CONTACT, DENIES SI /HI AT THIS TIME, PT. IS POOR HISTORIAN, POOR INSIGHT, POOR JUDGEMENT. SKIN ASSESSMENT DONE AND PICTURES TAKEN, LEFT LOWER LEG WOUND NOTED. AND REFUSED FLU/PNEUMO VACCINE, ENCOURAGED X3 RISKS BENEFITS EMPLANED , PT. STRONGLY REFUSED ,BOTH MD AWARE AND NOTIFIED OF THE ADMISSION, BELONGINGS CONTRABAND WERE DONE , MED RECON DONE BY DR. GBIBS. PT. RIGHTS DISCUSS BY GAUGE OPERATOR , PROVIDED THE PT. WITH HANDBOOK, AND MEDICATIONS GUIDE, ENVIRONMENTAL SAFETY CHECK DONE, ENCOURAGED PT. VERBALIZED ANY FEELING CONCERN TO STAFF, ORIENT TO UNIT POLICY, BED ALARM ON. BED IN LOW LOCKED POSITION. NO ACUTE DISTRESS NOTED, VITAL SIGNS WNL ,DENIES ANY PAIN AT THIS TIME, WILL CONTINUE TO MONITOR FOR Q15 SAFETY AND BEHAVIOR. Addendum: 06/23/20 at 0402 by ABNER NORIEGA RN UPON ADMISSION PATIENT IS A & O X 2-3, FORGETFUL AT TIMES, GARBLED SPEECH. ANXIOUS, EASILY AGITATED, LABILE, HYPERVERBAL, DELUSIONAL. RESTLESS, ATTENTION SEEKING, NEEDY. EPISODES OF CONFUSION. WILL CONTINUE TO MONITOR.
--- NOTE | 2020-06-22 21:30 | NUR ---
GPS RN NOTE CHECKED WITH THE PATIENT WHO TO NOTIFY ABOUT HER ADMISSION AT GPS UNIT & PT. STATED THAT THEY ALL KNOW, YOU DON'T HAVE TO CALL ANYONE. PATIENT HAS KIMBERLY GLORIA PERSON TO NOTIFY BUT PATIENT ASKED THE NURSE NOT TO CALL ANYONE.
--- NOTE | 2020-06-22 22:00 | NUR ---
GPS RN NOTE PATIENT CALLED HER FAMILY MEMBER & SPOKE TO THAT PERSON.
--- NOTE | 2020-06-22 22:27 | NUR ---
GPS RN NOTE: PAIN PATIENT C/O LOWER BACK PAIN 10/01, REQUESTED TO GET PAIN MEDICINE. PRN TYLENOL 650 MG PO GIVEN. WILL CONTINUE TO MONITOR.
[2020-06-23] MEDS ORDERED: WITC1MED4 TP (01:16)
[2020-06-23] MEDS ORDERED: DOCU-141 PO (01:16)
[2020-06-23] MEDS ORDERED: CA C1TAB88 PO (01:16)
[2020-06-23] MEDS ORDERED: [UNRECOGNIZED DRUG - CODE] PO (01:16)
[2020-06-23] MEDS ORDERED: MULT-447 PO (01:16)
[2020-06-23] MEDS ORDERED: IPRATROPIUM NEB FS 0.5 MG/2.5 ML AMPUL.NEB NEB PRN (01:30)
[2020-06-23] MEDS ORDERED: hydrOXYzine PAMOATE 25 MG CAPSULE PO PRN ×2 (01:30→08:00)
[2020-06-23] MEDS ORDERED: WITCH HAZEL TP SCH (02:30)
[2020-06-23] MEDS ORDERED: GLYCERIN TP SCH (02:30)
[2020-06-23 08:00] VITALS: BP 109/68
[2020-06-23] MEDS: ENSURE ENLIVE CHOC 237 ML CAN PO SCH ×3 (08:03→16:26)
[2020-06-23] MEDS: PANTOPRAZOLE 40 MG TABLET.DR PO SCH (08:03)
[2020-06-23 08:33] LABS: ALBUMIN 3.5 g/dL (3.4-5.0); BILIRUBIN,TOTAL 0.4 mg/dL (0.2-1.0); CALCIUM, SERUM 9.1 mg/dL (8.5-10.1); CREATININE 0.8 mg/dL (0.6-1.3); POTASSIUM 3.9 mmol/L (3.5-5.1); TOTAL PROTEIN, SERUM 7.8 g/dL (6.4-8.2)
[2020-06-23 08:41] LABS: THYROID STIMULATING HORMONE 1.334 uIU/mL (0.358-3.74)
[2020-06-23] MEDS ORDERED: HYDROXYZINE PO SCH (09:00)
[2020-06-23] MEDS ORDERED: OXCARBAZEPINE PO SCH (09:00)
[2020-06-23] MEDS: CEPHALEXIN MONOHYDRATE 500 MG CAPSULE PO SCH ×2 (09:13→20:25)
[2020-06-23] MEDS: CIPROFLOXACIN HCL 0.3% 5 ML BOTTLE EACHEYE SCH ×2 (09:13→16:25)
[2020-06-23] MEDS: MULTIVITAMINS,THERAGRAN 1 UDTAB TABLET PO SCH (09:13)
[2020-06-23] MEDS: NICOTINE PATCH (21MG) 21 MG PATCH.TD24 TD SCH (09:13)
[2020-06-23] MEDS: MULTIPLE VIT (LYCOPENE/FA/MV,CA,IRON,MIN/LUT)1 TAB PO SCH (09:17)
[2020-06-23] MEDS: PSYLLIUM SEED 1 PKT PACKET PO SCH ×2 (09:17→17:00)
[2020-06-23 16:00] VITALS: BP 97/60
--- NOTE | 2020-06-23 16:27 | NUR ---
Initial Discharge Plan: Pt currently resides at [facility] located at [address] [place] [address], [address], [place] [id number]; ([phone]). Per pt, [facility] SW will work with the pt and the MD regarding appropriate discharge planning. SW will form a safe and proper plan.
--- NOTE | 2020-06-23 17:25 | NUR ---
RN NOTE: MEDICATION REFUSAL PT REFUSED 1700 DOSE METAMUCIL
[2020-06-23] MEDS: OXCARBAZEPINE 150 MG TABLET PO SCH (20:25)
[2020-06-23 20:32] VITALS: BP 118/71
[2020-06-23] MEDS: DOCUSATE SODIUM 100 MG CAPSULE PO SCH (21:48)
--- NOTE | 2020-06-23 21:49 | NUR ---
GPS RN NOTES: REFUSED COLACE AND SEROQUEL PT REFUSED COLACE AND SEROQUEL DUE. PT STATED, "ILL TAKE THE COLACE TOMORROW BUT THE SEROQUEL WILL DO SOMETHING TO MY EYE. SO NO." EXPLAIN RISKS AND BENEFITS. PT STILL REFUSED X3. CONTINUE TO MONITOR.
[2020-06-23] MEDS ORDERED: QUETIAPINE FUMARATE 100 MG TABLET PO SCH (22:00)
[2020-06-24] MEDS: IBUPROFEN 400 MG TABLET PO PRN (00:21)
--- NOTE | 2020-06-24 00:23 | NUR ---
GPS RN NOTES: BACK PAIN PT C/O OF BACK PAIN 01/31. NO S/S NO RESP DISTRESS. BREATHING EVEN AND UNLABORED. PT REQUESTED PAIN MEDICATION. OFFERED MOTRIN PRN ORDERED. PT AGREED AND TOLERATED MEDICATION WELL. CONTINUE TO MONITOR.
[2020-06-24] MEDS: PANTOPRAZOLE 40 MG TABLET.DR PO SCH (07:51)
[2020-06-24] MEDS: ENSURE ENLIVE CHOC 237 ML CAN PO SCH ×3 (07:52→16:45)
[2020-06-24 08:00] VITALS: BP 109/69
[2020-06-24] MEDS: NICOTINE PATCH (21MG) 21 MG PATCH.TD24 TD SCH (08:27)
[2020-06-24] MEDS: MULTIPLE VIT (LYCOPENE/FA/MV,CA,IRON,MIN/LUT)1 TAB PO SCH (08:30)
[2020-06-24] MEDS: CIPROFLOXACIN HCL 0.3% 5 ML BOTTLE EACHEYE SCH ×2 (08:30→16:45)
[2020-06-24] MEDS: OXCARBAZEPINE 150 MG TABLET PO SCH ×2 (08:30→21:23)
[2020-06-24] MEDS: CEPHALEXIN MONOHYDRATE 500 MG CAPSULE PO SCH ×2 (08:30→21:23)
[2020-06-24] MEDS: MULTIVITAMINS,THERAGRAN 1 UDTAB TABLET PO SCH (08:30)
[2020-06-24] MEDS: PSYLLIUM SEED 1 PKT PACKET PO SCH ×2 (08:40→16:45)
--- NOTE | 2020-06-24 09:12 | NUR ---
WOUND CARE CONSULT: PT PRESENTS WITH LEFT LATERAL LOWER LEG RAISED AREA WITH REDNESS AND DRAINAGE, PRESENT ON ADMISSION. RECOMMEND SURGICAL CONSULT. DR ECHO PETTIT NOTIFIED OF CONSULT REQUEST. PT IS AMBULATORY AND CONTINENT. RECOMMENDATIONS MADE FOR WOUND CARE. DISCUSSED WITH NURSING STAFF.
[2020-06-24] MEDS: DAKINS QUARTER STRENGTH (0.125%) 480 ML BOTTLE TOP SCH (11:05)
--- NOTE | 2020-06-24 11:05 | NUR ---
RN NOTE: WOUND CARE DONE IN AM. LISA'S APPLIED LATE DUE TO NEW ORDER AND AVAILABILITY ON UNIT
[2020-06-24] MEDS ORDERED: LIDOCAINE 2%-EPI 1:100,000 30 ML VIAL TP STA (15:34)
[2020-06-24 16:00] VITALS: BP 118/53
[2020-06-24 20:49] VITALS: BP 112/65
[2020-06-24] MEDS: DOCUSATE SODIUM 100 MG CAPSULE PO SCH (21:23)
[2020-06-24] MEDS ORDERED: LACTAID 1 TAB TABLET PO SCH (21:30)
[2020-06-24] MEDS: TEMAZEPAM 15 MG CAPSULE PO PRN (22:28)
--- NOTE | 2020-06-24 22:30 | NUR ---
GPS RN NOTE: INSOMNIA PT. UNABLE TO SLEEP. ADMINISTERED RESTORIL 15 MG PO PRN ORDERED. WILL CONTINUE TO MONITOR.
[2020-06-25] MEDS: PANTOPRAZOLE 40 MG TABLET.DR PO SCH (07:22)
[2020-06-25 08:00] VITALS: BP 103/76
[2020-06-25] MEDS: NICOTINE PATCH (21MG) 21 MG PATCH.TD24 TD SCH (08:15)
[2020-06-25] MEDS: PSYLLIUM SEED 1 PKT PACKET PO SCH ×2 (08:15→16:54)
[2020-06-25] MEDS: MULTIPLE VIT (LYCOPENE/FA/MV,CA,IRON,MIN/LUT)1 TAB PO SCH (08:15)
[2020-06-25] MEDS: CEPHALEXIN MONOHYDRATE 500 MG CAPSULE PO SCH ×2 (08:15→21:17)
[2020-06-25] MEDS: MULTIVITAMINS,THERAGRAN 1 UDTAB TABLET PO SCH (08:16)
[2020-06-25] MEDS: ENSURE ENLIVE CHOC 237 ML CAN PO SCH ×3 (08:16→16:53)
[2020-06-25] MEDS: CIPROFLOXACIN HCL 0.3% 5 ML BOTTLE EACHEYE SCH ×2 (08:17→16:53)
[2020-06-25] MEDS: OXCARBAZEPINE 150 MG TABLET PO SCH ×2 (08:21→21:17)
[2020-06-25] MEDS: DAKINS QUARTER STRENGTH (0.125%) 480 ML BOTTLE TOP SCH (09:00)
--- NOTE | 2020-06-25 09:00 | NUR ---
RN NOTE- PT OPPOSITIONAL TO CARE, SELECTIVELY MED COMPLIANT INTRUSIVE DEMANDING, FLIGHT OF IDEAS, PT NEEDS FREQUENT REDIRECTION AND LIMITS SET ON BEHAVIORS
--- NOTE | 2020-06-25 10:00 | NUR ---
TRANSIT MIXER DRIVER - DRESSING CHANGE AND WOUND CARE TO LFT LOWER LEG ABSCESS. OLD DRESSING REMOVED, IODOFORM PACKING GAUZE REMOVED. ERYTHEMATOUS BORDER, NO PURULENCE NOTED AND MINOR SERO-SANQUINOUS EXUDATE NOTED TO DRESSING MATERIALS. PT STATED DISCOMFORT, CLEANSED W NS AND DAKINS SOLUTION. PACKED W IODOFORM AND STERILE GAUZE APPLIED. ABD APPLIED AND WRAPPED W KERLIX. TOLERATED WELL.
--- NOTE | 2020-06-25 13:55 | NUR ---
Filter WorkerElectric Meter Installer: SW called the pts geriatric case manager, Shayna ([phone]), and left a voicemail stating that the SW would like to discuss the pts treatment.
--- NOTE | 2020-06-25 13:56 | NUR ---
[facility] Contact: SW called the pts casey saw operator at [facility], Fabiola ([phone]), and left a voicemail stating that the SW would like to discuss treatment.
[2020-06-25 16:00] VITALS: BP 106/70
[2020-06-25 21:12] VITALS: BP 107/62
[2020-06-25] MEDS: TEMAZEPAM 15 MG CAPSULE PO PRN (21:17)
[2020-06-25] MEDS: DOCUSATE SODIUM 100 MG CAPSULE PO SCH (21:17)
[2020-06-26] MEDS: PANTOPRAZOLE 40 MG TABLET.DR PO SCH (07:53)
[2020-06-26 08:00] VITALS: BP 120/71
[2020-06-26] MEDS: ENSURE ENLIVE CHOC 237 ML CAN PO SCH ×3 (08:00→16:01)
[2020-06-26] MEDS: NICOTINE PATCH (21MG) 21 MG PATCH.TD24 TD SCH (08:18)
[2020-06-26] MEDS: CIPROFLOXACIN HCL 0.3% 5 ML BOTTLE EACHEYE SCH ×2 (08:24→16:10)
[2020-06-26] MEDS: OXCARBAZEPINE 150 MG TABLET PO SCH ×2 (08:26→21:05)
[2020-06-26] MEDS: MULTIVITAMINS,THERAGRAN 1 UDTAB TABLET PO SCH (08:26)
[2020-06-26] MEDS: MULTIPLE VIT (LYCOPENE/FA/MV,CA,IRON,MIN/LUT)1 TAB PO SCH (08:26)
[2020-06-26] MEDS: CEPHALEXIN MONOHYDRATE 500 MG CAPSULE PO SCH ×2 (08:26→21:05)
[2020-06-26] MEDS: PSYLLIUM SEED 1 PKT PACKET PO SCH ×2 (08:27→16:10)
[2020-06-26] MEDS: DAKINS QUARTER STRENGTH (0.125%) 480 ML BOTTLE TOP SCH (08:28)
--- NOTE | 2020-06-26 10:48 | NUR ---
RN-CO:PATIENT TODAY IS ISOLATIVE AND WITHDRAWN, SHE IS CRYING AND VERY ANXIOUS BUT REFUSED ANTI ANXIETY. SHE STATED THAT SHE LEARNED THAT HER SISTER HAS CANCER. SHE IS MALODOROUS, DISHEVELED AND UNKEPT. SHE ATE BREAKFAST AND TOOK HER MEDICATIONS. HER BEHAVIOR TODAY IS DIFFERENT FROM YESTERDAY WHICH IS MANIC.
--- NOTE | 2020-06-26 14:50 | NUR ---
RN-CO: PATIENT REMOVED HER WOUND DRESSING AND REFUSED FOR THE RN TO WRAP AND TREAT IT.SHE BEGAN CRYING AND THINK OF HER SISTER.
--- NOTE | 2020-06-26 15:04 | NUR ---
RN-CO: PATIENT STILL REFUSED FOR WOUND DRESSING, DEMANDING FOR AN INJECTABLE ANESTHESIA WHICH IS NOT THE DOCTOR'S ORDER. SHE WAS VERY ARGUMENTATIVE, TANGENTIAL, TALKING TO HERSELF LOUDLY.I OFFERED KLONOPIN BUT REFUSED.
--- NOTE | 2020-06-26 15:08 | NUR ---
RN-CO: PATIENT WAS REDIRECTED INSIDE HER ROOM, SHE WENT INSIDE TALKING LOUDLY TO HERSELF.
--- NOTE | 2020-06-26 15:36 | NUR ---
RN-CO: PATIENT REFUSED VITAL SIGNS.
[2020-06-26 20:41] VITALS: BP 126/73
[2020-06-26] MEDS: DOCUSATE SODIUM 100 MG CAPSULE PO SCH (21:05)
--- NOTE | 2020-06-27 08:34 | NUR ---
GPS/RN-NOTES RECEIVED T.O ORDER OF VISTARIL 5OMG P. Q6HR PRN FOR ANXIETY FROM DR. COLON . NOTED AND CARRIED OUT.
[2020-06-27] MEDS ORDERED: hydrOXYzine PAMOATE 50 MG CAPSULE PO PRN (09:00)
[2020-06-27] MEDS: OXCARBAZEPINE 150 MG TABLET PO SCH ×2 (09:16→21:09)
[2020-06-27] MEDS: PANTOPRAZOLE 40 MG TABLET.DR PO SCH (09:16)
[2020-06-27] MEDS: hydrOXYzine PAMOATE 25 MG CAPSULE PO PRN (09:16)
[2020-06-27] MEDS: CEPHALEXIN MONOHYDRATE 500 MG CAPSULE PO SCH ×2 (09:16→21:08)
[2020-06-27] MEDS: MULTIPLE VIT (LYCOPENE/FA/MV,CA,IRON,MIN/LUT)1 TAB PO SCH (09:17)
[2020-06-27] MEDS: MULTIVITAMINS,THERAGRAN 1 UDTAB TABLET PO SCH (09:19)
[2020-06-27 09:21] VITALS: BP 99/51
[2020-06-27] MEDS: CIPROFLOXACIN HCL 0.3% 5 ML BOTTLE EACHEYE SCH ×2 (09:21→16:37)
[2020-06-27] MEDS: NICOTINE PATCH (21MG) 21 MG PATCH.TD24 TD SCH (09:22)
[2020-06-27] MEDS: ENSURE ENLIVE CHOC 237 ML CAN PO SCH ×3 (09:22→16:36)
[2020-06-27] MEDS: PSYLLIUM SEED 1 PKT PACKET PO SCH ×2 (09:27→16:33)
--- NOTE | 2020-06-27 09:39 | NUR ---
GPS/RN-NOTES PATIENT PACING IN AND OUT HER ROOM HYPERVERBAL ,INTRUSIVE AND ARGUMENTATIVE. VITARIL 50MG P.O GIVEN PRN ORDER. WILL CONT. MONITORING FOR SAFETY AND BEHAVIOR.
--- NOTE | 2020-06-27 10:16 | NUR ---
SNF Referral: GYPSY faxed a referral to [facility] with attn to Yady to the fax number: [phone].
--- NOTE | 2020-06-27 10:17 | NUR ---
PC Hearing: Pts [phone] hold was upheld for gravely disabled.
--- NOTE | 2020-06-27 10:40 | NUR ---
GPS/RN-NOTES DR. VILLALTA IN THE UNIT AND MADE AWARE OF PATIENT POSITIVE FOR MRSA WOUND ON RIGHT LOWER LEG . PATIENT WAS PUT ON CONTACT ISOLATION. Addendum: 06/27/20 at 1855 by ELICEO KWON RN CORRECTIONS ON MY ABOVE NOTES, IT IS LEFT LOWER LEG WOUND
[2020-06-27] MEDS: DAKINS QUARTER STRENGTH (0.125%) 480 ML BOTTLE TOP SCH (10:43)
[2020-06-27] MEDS ORDERED: OLANZAPINE 10 MG VIAL IM STA (11:41)
[2020-06-27] MEDS ORDERED: LORAZEPAM INJ 2 MG/ML VIAL IM STA (11:43)
[2020-06-27] MEDS: SULFAMETH/TRIMETH 800/160 MG 1 UDTAB TABLET PO SCH ×2 (11:44→21:18)
[2020-06-27] MEDS ORDERED: BENZTROPINE MESYLATE (2MG/2ML) 2 MG/2 ML AMPUL IM STA (11:52)
--- NOTE | 2020-06-27 12:00 | NUR ---
GPS/RN-NOTES NOTED PATIENT PACING SCREAMING ,YELLING FOUL LANGUAGES ,BANGING DOORS,AND INTRUSIVE. DR. MANNING MADE AWARE WITH T.O ORDER OF ATIVAN 2MG IM X1 ZYPREXA 10MG IM X1 AND COGENTIN 1 MG IM X1.NOTED AND CARRIED OUT.
--- NOTE | 2020-06-27 12:24 | NUR ---
SNF Contact: Alta ([phone]), admissions from [facility], called the SW and stated that the pt was accepted to their facility upon discharge.
[2020-06-27 16:00] VITALS: BP 105/75
[2020-06-27 20:00] VITALS: BP 111/75
[2020-06-27 20:12] VITALS: BP 111/75
--- NOTE | 2020-06-27 20:59 | NUR ---
GPS RN NOTE: LACTAID FAST ACT TAB UNAVAILABLE CALLED PHARMACY & SPOKE TO LANA & NOTIFIED THAT PATIENT WANTS TO TAKE LACTAID FAST ACT TAB BUT ITS UNAVAILABLE ON THE UNIT & IN THE CASSATE. LANA CALLED BACK AFTER CHECKING WITH ACID PURIFIER THAT LACTAID FAST ACT IS UNAVAILABLE IN THE PHARMACY AT THIS TIME, WILL BE ORDERED FOR TOMORROW AM. WILL INFORM THE PATIENT.
[2020-06-27] MEDS: QUETIAPINE FUMARATE 100 MG TABLET PO SCH (22:17)
[2020-06-27] MEDS: DOCUSATE SODIUM 100 MG CAPSULE PO SCH (22:17)
[2020-06-28 08:00] VITALS: BP 113/72
[2020-06-28] MEDS: PSYLLIUM SEED 1 PKT PACKET PO SCH ×2 (08:48→17:29)
[2020-06-28] MEDS: NICOTINE PATCH (21MG) 21 MG PATCH.TD24 TD SCH (08:48)
[2020-06-28] MEDS: MULTIVITAMINS,THERAGRAN 1 UDTAB TABLET PO SCH (08:49)
[2020-06-28] MEDS: PANTOPRAZOLE 40 MG TABLET.DR PO SCH (08:49)
[2020-06-28] MEDS: CEPHALEXIN MONOHYDRATE 500 MG CAPSULE PO SCH ×2 (08:49→21:12)
[2020-06-28] MEDS: OXCARBAZEPINE 150 MG TABLET PO SCH ×2 (08:49→21:13)
[2020-06-28] MEDS: SULFAMETH/TRIMETH 800/160 MG 1 UDTAB TABLET PO SCH ×2 (08:49→21:12)
[2020-06-28] MEDS: ENSURE ENLIVE CHOC 237 ML CAN PO SCH ×3 (08:49→17:29)
[2020-06-28] MEDS: MULTIPLE VIT (LYCOPENE/FA/MV,CA,IRON,MIN/LUT)1 TAB PO SCH (08:49)
[2020-06-28] MEDS: QUETIAPINE FUMARATE 25 MG TABLET PO SCH ×2 (08:55→17:29)
--- NOTE | 2020-06-28 09:00 | NUR ---
GPS/RN-NOTES PATIENT REFUSED SEROQUEL 25MG P.O, STATED " I WILL NOT TAKE THE SEROQUEL I JUST TOLD TO THE DOCTOR". OFFERED X3
[2020-06-28] MEDS: DAKINS QUARTER STRENGTH (0.125%) 480 ML BOTTLE TOP SCH (09:57)
[2020-06-28] MEDS: CIPROFLOXACIN HCL 0.3% 5 ML BOTTLE EACHEYE SCH ×2 (09:57→17:32)
[2020-06-28] MEDS: LACTAID 1 TAB TABLET PO PRN (15:58)
[2020-06-28 16:26] VITALS: BP 119/66
[2020-06-28 20:05] VITALS: BP 102/55
[2020-06-28 20:57] VITALS: BP 107/69
[2020-06-28 21:07] VITALS: BP 102/55
[2020-06-28] MEDS: DOCUSATE SODIUM 100 MG CAPSULE PO SCH (21:21)
[2020-06-28] MEDS: QUETIAPINE FUMARATE 100 MG TABLET PO SCH (22:10)
[2020-06-29 08:00] VITALS: BP 106/70
[2020-06-29] MEDS: ENSURE ENLIVE CHOC 237 ML CAN PO SCH ×3 (08:32→16:38)
[2020-06-29] MEDS: OXCARBAZEPINE 150 MG TABLET PO SCH ×2 (08:32→21:10)
[2020-06-29] MEDS: NICOTINE PATCH (21MG) 21 MG PATCH.TD24 TD SCH (08:33)
[2020-06-29] MEDS: PANTOPRAZOLE 40 MG TABLET.DR PO SCH (08:33)
[2020-06-29] MEDS: SULFAMETH/TRIMETH 800/160 MG 1 UDTAB TABLET PO SCH ×2 (08:33→21:10)
[2020-06-29] MEDS: MULTIVITAMINS,THERAGRAN 1 UDTAB TABLET PO SCH (08:33)
[2020-06-29] MEDS: CEPHALEXIN MONOHYDRATE 500 MG CAPSULE PO SCH ×2 (08:33→21:10)
[2020-06-29] MEDS: PSYLLIUM SEED 1 PKT PACKET PO SCH ×2 (08:34→16:38)
[2020-06-29] MEDS: QUETIAPINE FUMARATE 25 MG TABLET PO SCH ×2 (08:34→16:38)
[2020-06-29] MEDS: MULTIPLE VIT (LYCOPENE/FA/MV,CA,IRON,MIN/LUT)1 TAB PO SCH (08:34)
[2020-06-29] MEDS: CIPROFLOXACIN HCL 0.3% 5 ML BOTTLE EACHEYE SCH ×2 (09:25→16:40)
[2020-06-29] MEDS: DAKINS QUARTER STRENGTH (0.125%) 480 ML BOTTLE TOP SCH (09:25)
[2020-06-29] MEDS: LACTAID 1 TAB TABLET PO PRN ×2 (10:34→17:30)
[2020-06-29] MEDS: IBUPROFEN 400 MG TABLET PO PRN (15:38)
[2020-06-29] MEDS: hydrOXYzine PAMOATE 25 MG CAPSULE PO PRN (15:38)
[2020-06-29 16:00] VITALS: BP 128/68
[2020-06-29 20:00] VITALS: BP 126/69
[2020-06-29] MEDS: QUETIAPINE FUMARATE 100 MG TABLET PO SCH (21:10)
[2020-06-29] MEDS: DOCUSATE SODIUM 100 MG CAPSULE PO SCH (21:10)
[2020-06-29] MEDS: TEMAZEPAM 15 MG CAPSULE PO PRN (22:26)
--- NOTE | 2020-06-29 22:26 | NUR ---
GPS-RN NOTE: INSOMNIA PATIENT C/O INABILITY TO SLEEP. ADMINISTERED RESTORIL 15MG PO ORDERED PER PATIENT'S REQUEST. WILL CONTINUE TO MONITOR PATIENT'S SAFETY.
[2020-06-30] MEDS: PANTOPRAZOLE 40 MG TABLET.DR PO SCH (07:30)
[2020-06-30 08:00] VITALS: BP 100/55
[2020-06-30] MEDS: ENSURE ENLIVE CHOC 237 ML CAN PO SCH ×3 (08:00→17:49)
[2020-06-30] MEDS: PSYLLIUM SEED 1 PKT PACKET PO SCH ×2 (09:28→17:49)
[2020-06-30] MEDS: QUETIAPINE FUMARATE 25 MG TABLET PO SCH ×2 (09:28→17:49)
[2020-06-30] MEDS: CEPHALEXIN MONOHYDRATE 500 MG CAPSULE PO SCH ×2 (09:28→21:00)
[2020-06-30] MEDS: OXCARBAZEPINE 150 MG TABLET PO SCH ×2 (09:28→21:00)
[2020-06-30] MEDS: SULFAMETH/TRIMETH 800/160 MG 1 UDTAB TABLET PO SCH ×2 (09:28→21:00)
[2020-06-30] MEDS: MULTIPLE VIT (LYCOPENE/FA/MV,CA,IRON,MIN/LUT)1 TAB PO SCH (09:28)
[2020-06-30] MEDS: NICOTINE PATCH (21MG) 21 MG PATCH.TD24 TD SCH (09:28)
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
[2020-06-30] MEDS: MULTIVITAMINS,THERAGRAN 1 UDTAB TABLET PO SCH (09:40)
[2020-06-30] MEDS: CIPROFLOXACIN HCL 0.3% 5 ML BOTTLE EACHEYE SCH ×2 (09:41→17:51)
[2020-06-30] MEDS: DAKINS QUARTER STRENGTH (0.125%) 480 ML BOTTLE TOP SCH (09:42)
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
--- NOTE | 2020-06-30 11:26 | NUR ---
SW Substance Abuse Intervention: Patient was provided with a brief substance abuse intervention and referred to [facility] ([phone]), [facility] ([phone]), and [facility] ([phone]).
[2020-06-30] MEDS: DOCUSATE SODIUM 100 MG CAPSULE PO SCH ×2 (11:36→17:49)
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
[2020-06-30 16:00] VITALS: BP 132/75
[2020-06-30 20:38] VITALS: BP 119/70
[2020-06-30] MEDS: QUETIAPINE FUMARATE 100 MG TABLET PO SCH (21:00)
[2020-06-30] MEDS: TEMAZEPAM 15 MG CAPSULE PO PRN (23:43)
--- NOTE | 2020-06-30 23:45 | NUR ---
GPS RN NOTE: INSOMNIA PT REQUESTED SLEEPING PILL DUE TO INABILITY TO SLEEP, VSS, ADMIN RESTORIL PRN @ [phone], WILL CONTINUE TO MONITOR Q15MIN FOR SAFETY AND BEHAVIOR.
[2020-07-01] MEDS: PANTOPRAZOLE 40 MG TABLET.DR PO SCH (06:30)
[2020-07-01 08:00] VITALS: BP 102/66
[2020-07-01] MEDS: PSYLLIUM SEED 1 PKT PACKET PO SCH ×2 (08:53→17:30)
[2020-07-01] MEDS: MULTIPLE VIT (LYCOPENE/FA/MV,CA,IRON,MIN/LUT)1 TAB PO SCH (08:53)
[2020-07-01] MEDS: NICOTINE PATCH (21MG) 21 MG PATCH.TD24 TD SCH (08:53)
[2020-07-01] MEDS: MULTIVITAMINS,THERAGRAN 1 UDTAB TABLET PO SCH (08:53)
[2020-07-01] MEDS: OXCARBAZEPINE 150 MG TABLET PO SCH ×2 (08:54→21:18)
[2020-07-01] MEDS: CEPHALEXIN MONOHYDRATE 500 MG CAPSULE PO SCH ×2 (08:54→21:18)
[2020-07-01] MEDS: QUETIAPINE FUMARATE 25 MG TABLET PO SCH ×2 (08:54→17:30)
[2020-07-01] MEDS: DOCUSATE SODIUM 100 MG CAPSULE PO SCH ×2 (08:54→17:30)
[2020-07-01] MEDS: SULFAMETH/TRIMETH 800/160 MG 1 UDTAB TABLET PO SCH ×2 (08:56→21:18)
[2020-07-01] MEDS: ENSURE ENLIVE CHOC 237 ML CAN PO SCH ×3 (08:56→17:30)
[2020-07-01] MEDS: CIPROFLOXACIN HCL 0.3% 5 ML BOTTLE EACHEYE SCH ×2 (08:56→17:30)
--- NOTE | 2020-07-01 09:00 | NUR ---
RN NOTE- PT ALERT INTERACTIVE HYPERVERBAL INTRUSIVE DENIES ALL DELUSIONAL DIRTY DISHEVELED. FOR DC TOMORROW
[2020-07-01] MEDS: DAKINS QUARTER STRENGTH (0.125%) 480 ML BOTTLE TOP SCH (09:32)
[2020-07-01] MEDS: LACTAID 1 TAB TABLET PO PRN ×2 (13:42→17:30)
--- NOTE | 2020-07-01 14:00 | NUR ---
RN NOTE DRESSING CHANGE / WOUND CARE. DRESSING CHANGE PERFORMED TO LLE AT THIS TIME. AREA W ERYTHEMA , SEROUS EXUDATE AND MINOR DISCOMFORT WHEN IODOFORM GAUZE REMOVED, NO WARMTH, NO PURULENCE PRESENT. CLEANED AREA W COPIUS DAKINS, IODOFORM GAUZE PACKED AND STERILE DRESSING COVER APPLIED. WRAPPED W KERLIX AND TAPED SECURELY. TOLERATED WELL.
[2020-07-01 16:00] VITALS: BP 104/61
[2020-07-01] MEDS: QUETIAPINE FUMARATE 100 MG TABLET PO SCH (21:18)
[2020-07-01 21:26] VITALS: BP 109/67
[2020-07-02] MEDS: TEMAZEPAM 15 MG CAPSULE PO PRN (01:46)
--- NOTE | 2020-07-02 01:46 | NUR ---
GPS-RN NOTE: INSOMNIA PATIENT C/O INABILITY TO SLEEP. ADMINISTERED RESTORIL 15MG PO ORDERED PER PATIENT'S REQUEST. WILL CONTINUE TO MONITOR PATIENT'S SAFETY.
[2020-07-02 08:00] VITALS: BP 124/79
--- NOTE | 2020-07-02 08:00 | NUR ---
GPS/RN-NOTES RECEIVED DISCHARGE ORDER FROM DR. COLON (COVERING FOR DR. SANTAMARIA) DISCONTINUE HOLD CONTINUE ROUTINE MEDICATIONS AND DISCONTINUE PRN MEDICATIONS. NOTED AND CARRIED OUT.
--- NOTE | 2020-07-02 08:04 | NUR ---
Discharge Note: Patient will be discharged to shelter [facility] [address] [place] [address] ([phone]) via ambulance at 12PM. Resource Room Special Education Teacher spoke with Alta, Parts Representative at the facility who stated patient will be accepted at facility today. Patients sister Marii ([phone]) is aware and agreeable with discharge plan. Patient is alert and oriented x2 and is not able to plan for self-care at this time but is willing to accept care provided for her at the facility. Patient denies suicidal or homicidal ideation and is aware and agreeable with discharge plans. Patient will follow-up at the facility with (Psychiatrist) Dr. Man and (Automotive Sales Associate) Dr. Lopez. Patient was given substance abuse resources: [facility] Substance Abuse Self-helpline ([phone]); [facility] [address] [place] [address] ([phone]); [address] [place] [address] ([phone]); [facility] ([phone]); [facility] ([phone]); [facility] ([phone]); [facility] ([phone]). Patient presents with euthymic and congruent mood.
[2020-07-02] MEDS: PANTOPRAZOLE 40 MG TABLET.DR PO SCH (08:15)
[2020-07-02] MEDS: ENSURE ENLIVE CHOC 237 ML CAN PO SCH ×2 (08:15→12:30)
[2020-07-02] MEDS: QUETIAPINE FUMARATE 25 MG TABLET PO SCH (08:28)
[2020-07-02] MEDS: SULFAMETH/TRIMETH 800/160 MG 1 UDTAB TABLET PO SCH (08:28)
[2020-07-02] MEDS: MULTIVITAMINS,THERAGRAN 1 UDTAB TABLET PO SCH (08:28)
[2020-07-02] MEDS: NICOTINE PATCH (21MG) 21 MG PATCH.TD24 TD SCH (08:28)
[2020-07-02] MEDS: MULTIPLE VIT (LYCOPENE/FA/MV,CA,IRON,MIN/LUT)1 TAB PO SCH (08:28)
[2020-07-02] MEDS: OXCARBAZEPINE 150 MG TABLET PO SCH (08:28)
[2020-07-02] MEDS: DOCUSATE SODIUM 100 MG CAPSULE PO SCH (08:28)
[2020-07-02] MEDS: CEPHALEXIN MONOHYDRATE 500 MG CAPSULE PO SCH (08:28)
[2020-07-02] MEDS: PSYLLIUM SEED 1 PKT PACKET PO SCH (08:30)
--- NOTE | 2020-07-02 09:30 | NUR ---
GPS/RN-NOTES DID WOUND TREATMENT ON LEFT LEG.
[2020-07-02] MEDS: DAKINS QUARTER STRENGTH (0.125%) 480 ML BOTTLE TOP SCH (09:56)
[2020-07-02] MEDS: CIPROFLOXACIN HCL 0.3% 5 ML BOTTLE EACHEYE SCH (09:56)
[2020-07-02] MEDS: LACTAID 1 TAB TABLET PO PRN (10:35)
--- NOTE | 2020-07-02 14:36 | NUR ---
GPS/RN-NOTES PATIENT WAS DISCHARGE TODAY BY DR. COLON (COVERING FOR DR. SANTAMARIA).MATT MAKI MADE AWARE OF THE DISCHARGE WITH ORDERS. REPORT WAS GIVEN TO STANFORD ( ASSISTANT FOOD SERVICE MANAGER). PATIENT A/O X4,NO ACUTE DISTRESS NOTED. AMBULATORY STEADY GAIT. PATIENT STRONGLY REFUSED PNA AND FLU VACCINE PRIOR TO DISCHARGE. STATED" I DON'T THINK ITS GONNA WORK". EXPLAINED RISK AND BENEFITS BUT STILL REFUSED. PATIENT DID NOT VERBALIZE SI/HI,DENIES VISUAL AUDITORY HALLUCINATIONS AT THE TIME OF DISCHARGE. PER SW NOTES PT. SISTER VIPUL MADE AWARE OF THE DISCHARGE. PATIENT LEFT THE UNIT IN STABLE CONDITION ALERT ORIENTED X4 . ALL BELONGINGS WAS GIVEN BACK TO THE PATIENT.ASSISTANT MANAGER BILINGUAL BY AMBULANCE VIA GURNEY WITH TWO STAFF ASSIST. MASK WAS PROVIDED.
== END 2020-07-02 14:40 | DRG 876 ==
LOC: ER 14:25 → GPS 20:04
PROVIDERS: ADMIT Psychiatry & Neurology Psychiatry; ATTEND Nurse Practitioner Acute Care
PROC: 0J9P0ZZ Drainage of Left Lower Leg Subcutaneous Tissue and Fascia, Open Approach (ICD-10-PCS; principal; 2020-06-22)
DX: F31.2 Bipolar disorder, current episode manic severe with psychotic features (principal); L03.116 Cellulitis of left lower limb; N39.0 Urinary tract infection, site not specified; L02.416 Cutaneous abscess of left lower limb; F29 Unspecified psychosis not due to a substance or known physiological condition; F41.9 Anxiety disorder, unspecified; F14.10 Cocaine abuse, uncomplicated; M19.90 Unspecified osteoarthritis, unspecified site; M41.9 Scoliosis, unspecified; Z88.8 Allergy status to other drugs, medicaments and biological substances; Z91.011 Allergy to milk products; Z79.899 Other long term (current) drug therapy; F43.10 Post-traumatic stress disorder, unspecified; J43.9 Emphysema, unspecified; Z72.0 Tobacco use; G47.00 Insomnia, unspecified; Z91.19 Patient's noncompliance with other medical treatment and regimen
CPT/HCPCS: 36415; 80048-TC; 80053-TC; 80061-TC; 80076-TC; 81001; 82962-TC; 84443-TC; 85025-TC; 87070-TC; 87081-TC; 87086-TC; A6253; A6403; C9803; G0480; J0515; J2060; J3490; Q0177

== ENCOUNTER 2020-10-23 13:46 | Emergency (ER) | payer MEDICARE, OTHER ==
[~2020-10-23] VITALS: Ht 167.6 cm; Wt 64.4 kg
[~2020-10-23 13:46] MED LIST changes: +ATARAX PO; -BENZ2TAB7 PO; +CA C1TAB88 PO; +CIPR5DRO18 LEFT EAR; -CLON0.5T4 PO; +DOCU-141 PO; +HYDR50CA5 PO; +IBUP-1953 PO; -LANS30CA54 PO; +MULT-447 PO; -OXCA300T15 PO; +OXCA300T4 PO; +PANT20TA17 PO; -TRAZ-257 MT; +WITC1MED4 TP; +[UNRECOGNIZED DRUG - CODE] PO
[2020-10-23 13:52] VITALS: BP 126/82
--- NOTE | 2020-10-23 14:00 | NUR ---
URINE SPECIMEN COLLECTED AND SENT TO LAB.
--- NOTE | 2020-10-23 14:04 | NUR ---
AT BEDSIDE FOR EVAL.
[2020-10-23] MEDS ORDERED: CEPH500C2 PO (14:12)
[2020-10-23 14:20] LABS: BILIRUBIN,URINE Negative (NEGATIVE); COLOR,URINE YELLOW (YELLOW); LEUKOCYTE ESTERASE ,URINE Small (NEGATIVE); NITRITE, URINE Positive (NEGATIVE); PROTEIN,URINE Negative (NEGATIVE); UGLUCOSE Negative (NEGATIVE); UROBILINOGEN,URINE 0.2 EU/dL (0.2)
[2020-10-23 14:22] LABS: BACTERIA,URINE Few /HPF (None Seen); RBC,URINE 0-2 /HPF (0-2); SQUAMOUS EPITHELIAL CELL,UR Few /HPF (None Seen)
--- NOTE | 2020-10-23 14:23 | NUR ---
Patient discharged to home in stable condition. Written and verbal after care instructions given. Patient verbalizes understanding of instruction.
== END 2020-10-23 14:24 | disposition home or self-care (01) ==
LOC: ER 13:47
DX: N39.0 Urinary tract infection, site not specified (principal); F10.10 Alcohol abuse, uncomplicated; F17.200 Nicotine dependence, unspecified, uncomplicated; Y90.9 Presence of alcohol in blood, level not specified; Z98.890 Other specified postprocedural states; Z91.011 Allergy to milk products; Z88.8 Allergy status to other drugs, medicaments and biological substances; Z79.899 Other long term (current) drug therapy
CPT/HCPCS: 81001; 87086-TC

== ENCOUNTER 2020-12-11 12:06 | Emergency (ER) | payer OTHER ==
[~2020-12-11] VITALS: Ht 167.6 cm; Wt 59.0 kg
[~2020-12-11 12:06] MED LIST changes: +CEPH500C2 PO
--- NOTE | 2020-12-11 12:47 | NUR ---
AT BEDSIDE FOR EVAL.
[2020-12-11] MEDS ORDERED: AMOX500C2 PO (13:02)
[2020-12-11 13:03] VITALS: BP 110/75
[2020-12-11] MEDS ORDERED: AMOXICILLIN TRIHYDRATE 250 MG CAPSULE ONE (13:07)
--- NOTE | 2020-12-11 13:09 | NUR ---
pt left before being given amoxicillin 500mg po. discharged w/ prescription.
[2020-12-11] MEDS ORDERED: AMOXICILLIN TRIHYDRATE 500 MG CAPSULE PO ONE (13:30)
== END 2020-12-11 13:11 | disposition home or self-care (01) ==
LOC: ER 12:23
DX: J02.9 Acute pharyngitis, unspecified (principal); J44.9 Chronic obstructive pulmonary disease, unspecified; M19.90 Unspecified osteoarthritis, unspecified site; Z88.8 Allergy status to other drugs, medicaments and biological substances; Z60.2 Problems related to living alone; Z79.899 Other long term (current) drug therapy

== ENCOUNTER 2021-01-01 14:44 | Emergency (ER) | payer OTHER ==
[~2021-01-01] VITALS: Ht 162.6 cm; Wt 61.2 kg
[2021-01-01 14:44] VITALS: BP 106/68
[~2021-01-01 14:44] MED LIST changes: +AMOX500C2 PO
[2021-01-01] MEDS ORDERED: KETOROLAC TROMETHAMINE 15 MG/ML VIAL ONE (15:28)
[2021-01-01] MEDS ORDERED: KETOROLAC TROMETHAMINE INJ 30 MG/ML VIAL IM ONE (15:30)
[2021-01-01] MEDS ORDERED: DIAZEPAM 5 MG/ML 2 ML DISP.SYRIN ONE (16:07)
[2021-01-01] MEDS ORDERED: DIAZEPAM 5 MG/ML 2 ML DISP.SYRIN IM ONE (16:30)
--- NOTE | 2021-01-01 16:59 | NUR ---
Patient discharged to home in stable condition. Written and verbal after care instructions given. Patient verbalizes understanding of instruction. Pt ambulatory with a steady gait
== END 2021-01-01 17:00 | disposition home or self-care (01) ==
LOC: ER 14:59
DX: S03.02XA Dislocation of jaw, left side, initial encounter (principal); M19.90 Unspecified osteoarthritis, unspecified site; F17.200 Nicotine dependence, unspecified, uncomplicated; Z88.8 Allergy status to other drugs, medicaments and biological substances; Z60.2 Problems related to living alone; Z79.899 Other long term (current) drug therapy; X58.XXXA Exposure to other specified factors, initial encounter; Y93.89 Activity, other specified; Y92.89 Other specified places as the place of occurrence of the external cause; Y99.8 Other external cause status
CPT/HCPCS: 21480; 70486; 96372 ×2; 99283; J1885; J3360

== ENCOUNTER 2021-04-08 22:48 | Emergency (ER) | payer OTHER ==
[~2021-04-08] VITALS: Ht 167.6 cm; Wt 65.8 kg
[2021-04-08 23:28] LABS: BASOPHILS % (AUTO) 0.6 % (0.0-2.0); EOSINOPHILS % (AUTO) 1.3 % (0.0-6.0); HEMATOCRIT 41 % (33-45); HEMOGLOBIN 13.4 g/dL (11.5-14.8); LYMPHOCYTES # (AUTO) 2.5 K/uL (0.8-4.8); LYMPHOCYTES % (AUTO) 36.4 % (20.0-44.0); MEAN CORPUSCULAR HGB CONC 33 g/dl (31.0-36.0); MEAN CORPUSCULAR VOLUME 91 fL (82-100); MONOCYTES # (AUTO) 0.8 K/uL (0.1-1.30); MONOCYTES % (AUTO) 11.8 % (2.0-12.0); NEUTROPHILS # (AUTO) 3.4 K/uL (1.8-8.9); NEUTROPHILS % (AUTO) 49.9 % (43.0-81.0); PLATELET COUNT (AUTO) 277 K/uL (150-450); RED BLOOD CELL COUNT(AUTO) 4.43 MIL/uL (4.0-5.2); WHITE BLOOD COUNT (AUTO) 6.9 K/uL (4.3-11.0)
[2021-04-08 23:36] LABS: CALCIUM, SERUM 9.5 mg/dL (8.5-10.1); CARBON DIOXIDE 26 mmol/L (21-32); CHLORIDE 104 mmol/L (98-107); CREATININE 0.9 mg/dL (0.6-1.3); GLUCOSE 92 mg/dL (74-106); POTASSIUM 3.5 mmol/L (3.5-5.1); SODIUM SERUM 142 mmol/L (136-145); UREA NITROGEN, BLOOD 42 mg/dL (7-18)
[2021-04-08 23:42] LABS: ALANINE AMINOTRANSFERASE 63 U/L (12-78); ALBUMIN 4.2 g/dL (3.4-5.0); ALCOHOL, BLOOD < 3 mg/dL (0-0); ALKALINE PHOSPHATASE 64 U/L (46-116); ASPARTATE AMINOTRANSFERASE 51 U/L (15-37); BILIRUBIN,DIRECT 0.2 mg/dL (0.0-0.2); BILIRUBIN,TOTAL 0.6 mg/dL (0.2-1.0); TOTAL PROTEIN, SERUM 8.2 g/dL (6.4-8.2)
[2021-04-08 23:43] LABS: ACETAMINOPHEN < 2 ug/ml (10-30)
[2021-04-09 00:05] LABS: BILIRUBIN,URINE SMALL (NEGATIVE); COLOR,URINE ORANGE (YELLOW); LEUKOCYTE ESTERASE ,URINE Negative (NEGATIVE); NITRITE, URINE Negative (NEGATIVE); PH,URINE 5.5 (5.0-8.0); PROTEIN,URINE 30 mg/dl (NEGATIVE); UGLUCOSE Negative (NEGATIVE); UROBILINOGEN,URINE 0.2 EU/dL (0.2)
[2021-04-09 00:23] LABS: BACTERIA,URINE Rare /HPF (None Seen); SQUAMOUS EPITHELIAL CELL,UR Few /HPF (None Seen); WBC,URINE NONE SEEN /HPF (0-3)
[2021-04-09] MEDS ORDERED: LORAZEPAM INJ 2 MG/ML VIAL IM ONE (02:00)
[2021-04-09] MEDS ORDERED: LORAZEPAM INJ 2 MG/ML VIAL ONE (02:12)
[2021-04-09] MEDS ORDERED: HALOPERIDOL LACTATE INJ 5 MG/ML VIAL ONE (04:35)
[2021-04-09] MEDS ORDERED: HALOPERIDOL LACTATE INJ 5 MG/ML VIAL IM ONE (05:00)
--- NOTE | 2021-04-09 08:34 | NUR ---
ASSESSED PT ON BED ASLEEP EASILY AROUSABLE, V/S STABLE, KEPT RESTED AND COMFORTABLE. WILL CONTINUE TO MONITOR.
--- NOTE | 2021-04-09 11:00 | NUR ---
SS consult requested for drug abuse. SW will follow up when pt. is interviewable.
--- NOTE | 2021-04-09 12:01 | NUR ---
SS Consult: SS Consult requested for Drug abuse. The pt. is a 60 year old female who was BIBRA after she was reportedly "running around acting erratically outside of an apartment building". The pt. appears unkempt with missing front tooth and slurred speech. Pt. is difficult to interview this time as she is continuously falling asleep. Pt. tested possitive for cocaine, Amphetamines, Opiates. Pt. to be assessed by crisis when sober. SW discussed with RNJesus.
--- NOTE | 2021-04-09 12:35 | NUR ---
CALLED [facility] [phone]
--- NOTE | 2021-04-09 14:03 | NUR ---
CALLED [facility] ETA 60 MINS PER MAYO.
--- NOTE | 2021-04-09 15:07 | NUR ---
REPORT GIVEN TO EMT. PATIENT A/OX4, AMBULATORY WITH STEADY GAIT. NO DISTRESS NOTED. NEEDS ATTENDED. DENIES SI/HI AT THIS TIME. Patient discharged to home in stable condition. Written and verbal after care instructions given. Patient verbalizes understanding of instruction.
[2021-04-09 15:08] VITALS: BP 134/87
== END 2021-04-09 15:09 | disposition home or self-care (01) ==
LOC: ER 22:51
DX: F19.10 Other psychoactive substance abuse, uncomplicated (principal); Z20.822 Contact with and (suspected) exposure to COVID-19; Z88.8 Allergy status to other drugs, medicaments and biological substances; Z91.011 Allergy to milk products; J43.9 Emphysema, unspecified; M19.90 Unspecified osteoarthritis, unspecified site; Z79.899 Other long term (current) drug therapy
CPT/HCPCS: 36415; 80048; 80076; 80143; 80307; 80320; 81001; 85025; 87426; 96372 ×2; 99284; C9803; J1630; J2060; G0480

== ENCOUNTER 2021-11-08 18:58 | Emergency (ER) | payer OTHER ==
[~2021-11-08] VITALS: Ht 162.6 cm; Wt 63.5 kg
[2021-11-08] MEDS ORDERED: CEFTRIAXONE 500 MG VIAL ONE (19:26)
[2021-11-08] MEDS ORDERED: LIDOCAINE /MPF 1% VIAL 5 ML VIAL ONE (19:26)
[2021-11-08] MEDS ORDERED: DOXYCYCLINE HYCLATE (100 MG) 100 MG TABLET ONE (19:27)
[2021-11-08] MEDS ORDERED: CEFTRIAXONE 500 MG VIAL IM ONE (19:30)
[2021-11-08] MEDS ORDERED: DOXYCYCLINE HYCLATE (100 MG) 100 MG TABLET PO ONE (19:30)
--- NOTE | 2021-11-08 19:30 | NUR ---
BIB SELF C/O PAIN UPON URINATION STARTED YESTERDAY. PT AFEBRILE AND AMBULATORY WITH STEADY GAIT. ENDORSES COCIAINE USE. BREATHING EVEN AND UNLABORED AND ALL V/S STABLE
--- NOTE | 2021-11-08 19:31 | NUR ---
URINE COLLECTED AND SENT TO LAB
[2021-11-08 19:54] LABS: BILIRUBIN,URINE NEGATIVE (NEGATIVE); COLOR,URINE YELLOW (YELLOW); LEUKOCYTE ESTERASE ,URINE MODERATE (NEGATIVE); NITRITE, URINE NEGATIVE (NEGATIVE); PROTEIN,URINE NEGATIVE (NEGATIVE); UGLUCOSE NEGATIVE (NEGATIVE); UROBILINOGEN,URINE 0.2 EU/dL (0.2)
[2021-11-08 19:57] LABS: BACTERIA,URINE 1+ /HPF (None Seen); WBC,URINE 21-50 /HPF (0-3)
[2021-11-08] MEDS ORDERED: CEPH500C2 PO (20:00)
[2021-11-08] MEDS ORDERED: DOXY-326 PO (20:00)
--- NOTE | 2021-11-08 20:06 | NUR ---
Patient discharged to home in stable condition. Written and verbal after care instructions given. Patient verbalizes understanding of instruction.
[2021-11-08 20:08] VITALS: BP 123/75
== END 2021-11-08 20:08 | disposition home or self-care (01) ==
LOC: ER 19:05
DX: N39.0 Urinary tract infection, site not specified (principal); M19.90 Unspecified osteoarthritis, unspecified site; F17.200 Nicotine dependence, unspecified, uncomplicated; Z87.09 Personal history of other diseases of the respiratory system; Z87.39 Personal history of other diseases of the musculoskeletal system and connective tissue; Z88.8 Allergy status to other drugs, medicaments and biological substances; Z79.1 Long term (current) use of non-steroidal anti-inflammatories (NSAID); Z79.899 Other long term (current) drug therapy
CPT/HCPCS: 81001; 87086; 87491; 87591; 96372; 99283; J0696; J3490

== ENCOUNTER 2021-12-09 05:13 | Emergency (ER) | payer OTHER ==
[~2021-12-09] VITALS: Ht 162.6 cm; Wt 61.2 kg
[~2021-12-09 05:13] MED LIST changes: +DOXY-326 PO
[2021-12-09 06:00] VITALS: BP 109/70
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
[2021-12-09] MEDS ORDERED: BACI/NEOM/POLY B OINT PKT 1 UDPKT PACKET ONE (06:16)
[2021-12-09] MEDS ORDERED: BACI/NEOM/POLY B OINT PKT 1 UDPKT PACKET TP ONE (06:30)
== END 2021-12-09 06:30 | disposition home or self-care (01) ==
LOC: ER 05:16
DX: R23.4 Changes in skin texture (principal); F42.4 Excoriation (skin-picking) disorder; M19.90 Unspecified osteoarthritis, unspecified site; F31.9 Bipolar disorder, unspecified; F17.200 Nicotine dependence, unspecified, uncomplicated; Z85.118 Personal history of other malignant neoplasm of bronchus and lung; Z87.39 Personal history of other diseases of the musculoskeletal system and connective tissue; Z88.8 Allergy status to other drugs, medicaments and biological substances; Z79.899 Other long term (current) drug therapy

== ENCOUNTER 2022-01-23 22:37 | Emergency (ER) | payer OTHER ==
[~2022-01-23] VITALS: Ht 157.5 cm; Wt 59.0 kg
--- NOTE | 2022-01-24 | NUR ---
TO ER BED 11. [facility] C/O L EXT GOT BIT BY SPIDER. THERE IS NO SIGN OF ANY INSECT BITE, NO REDNESS OR SWELLING NOTED. PT AAOX1 . AMBULATORY WITH UNSTEADY GAIT. PT EXPRESSES NO OTHER MEDICAL COMPLAINT. CONNECTED TO MONITOR.
[2022-01-24 00:43] LABS: BASOPHILS % (AUTO) 0.6 % (0.0-2.0); EOSINOPHILS % (AUTO) 1.7 % (0.0-6.0); HEMATOCRIT 43 % (33-45); HEMOGLOBIN 14.3 g/dL (11.5-14.8); LYMPHOCYTES # (AUTO) 1.8 K/uL (0.8-4.8); LYMPHOCYTES % (AUTO) 25.5 % (20.0-44.0); MEAN CORPUSCULAR HGB CONC 34 g/dl (31.0-36.0); MEAN CORPUSCULAR VOLUME 89 fL (82-100); MONOCYTES # (AUTO) 0.9 K/uL (0.1-1.30); MONOCYTES % (AUTO) 11.8 % (2.0-12.0); NEUTROPHILS # (AUTO) 4.3 K/uL (1.8-8.9); NEUTROPHILS % (AUTO) 60.4 % (43.0-81.0); PLATELET COUNT (AUTO) 210 K/uL (150-450); RED BLOOD CELL COUNT(AUTO) 4.79 MIL/uL (4.0-5.2); WHITE BLOOD COUNT (AUTO) 7.2 K/uL (4.3-11.0)
[2022-01-24 01:16] LABS: ALANINE AMINOTRANSFERASE 30 U/L (12-78); ALBUMIN 4.2 g/dL (3.4-5.0); ALCOHOL, BLOOD < 3 mg/dL (0-0); ALKALINE PHOSPHATASE 65 U/L (46-116); ASPARTATE AMINOTRANSFERASE 25 U/L (15-37); BILIRUBIN,DIRECT 0.1 mg/dL (0.0-0.2); BILIRUBIN,TOTAL 0.6 mg/dL (0.2-1.0); CALCIUM, SERUM 9.4 mg/dL (8.5-10.1); CARBON DIOXIDE 25 mmol/L (21-32); CHLORIDE 106 mmol/L (98-107); CREATININE 0.6 mg/dL (0.6-1.3); GLUCOSE 92 mg/dL (74-106); POTASSIUM 3.2 mmol/L (3.5-5.1); SODIUM SERUM 144 mmol/L (136-145); TOTAL PROTEIN, SERUM 8.3 g/dL (6.4-8.2); UREA NITROGEN, BLOOD 30 mg/dL (7-18)
[2022-01-24 01:17] LABS: ACETAMINOPHEN 0 ug/ml (10-30)
--- NOTE | 2022-01-24 02:20 | NUR ---
Dexter larson in [facility] - 01/24/22 at 0221 by CONRAD PT UNABLE TO PROVIDE URINE AT THIS TIME
--- NOTE | 2022-01-24 02:20 | NUR ---
NOT ABLE TO GIVE URINE AT THIS TIME.
--- NOTE | 2022-01-24 03:50 | NUR ---
URINE SAMPLE COLLECTED AND SENT TO LAB
[2022-01-24 04:15] LABS: BILIRUBIN,URINE NEGATIVE (NEGATIVE); COLOR,URINE YELLOW (YELLOW); LEUKOCYTE ESTERASE ,URINE MODERATE (NEGATIVE); NITRITE, URINE NEGATIVE (NEGATIVE); PROTEIN,URINE 100 mg/dl (NEGATIVE); UGLUCOSE NEGATIVE (NEGATIVE); UROBILINOGEN,URINE 0.2 EU/dL (0.2)
[2022-01-24 04:27] LABS: BACTERIA,URINE Few /HPF (None Seen); SQUAMOUS EPITHELIAL CELL,UR Few /HPF (None Seen); WBC,URINE 21-50 /HPF (0-3)
[2022-01-24] MEDS ORDERED: CEFTRIAXONE 1 G VIAL ONE (04:55)
[2022-01-24] MEDS ORDERED: LIDOCAINE HCL/PF 2 % 5ML SDV 5 ML VIAL ONE (04:56)
[2022-01-24] MEDS: CEFTRIAXONE 1 G VIAL IM ONE (05:01)
--- NOTE | 2022-01-24 05:53 | NUR ---
CLINICALS FAXED TO [facility]
--- NOTE | 2022-01-24 08:07 | NUR ---
covid antigen swab done and sent to the lab
[2022-01-24 09:02] VITALS: BP 131/84
--- NOTE | 2022-01-24 10:10 | NUR ---
FAXED COIVD RESULT TO [facility].
--- NOTE | 2022-01-24 10:37 | NUR ---
PT ACCEPTED TO [facility] UNDER DR. GARRIDO PLEASE CALL [phone] FOR REPORT PER ALLY.
--- NOTE | 2022-01-24 10:47 | NUR ---
ACCEPTING DR. MICHEL
--- NOTE | 2022-01-24 10:47 | NUR ---
SUPERVISOR BRIAR SHOP WILL BE HERE AT [phone]
[2022-01-24] MEDS ORDERED: POTASSIUM CHLORIDE 20 MEQ TAB.PRT.SR PO ONE (11:00)
[2022-01-24] MEDS: POTASSIUM CHLORIDE 20 MEQ TAB.PRT.SR PO ONE (11:16)
--- NOTE | 2022-01-24 11:16 | NUR ---
REPORT GIVEN TO NURSE HORTON FROM [facility].
--- NOTE | 2022-01-24 11:30 | NUR ---
THE PATIENT IS DISCHARGED TO [facility] IN STABLE CONDITION AND VIA ARRANGED TRANSPO.
== END 2022-01-24 12:25 ==
LOC: ER 22:52
DX: R45.851 Suicidal ideations (principal); F25.9 Schizoaffective disorder, unspecified; T63.301A Toxic effect of unspecified spider venom, accidental (unintentional), initial encounter; Y92.89 Other specified places as the place of occurrence of the external cause; E87.6 Hypokalemia; N28.9 Disorder of kidney and ureter, unspecified; Z20.822 Contact with and (suspected) exposure to COVID-19; Z59.00 Homelessness unspecified; Z95.2 Presence of prosthetic heart valve; F31.9 Bipolar disorder, unspecified; Z86.19 Personal history of other infectious and parasitic diseases; J43.9 Emphysema, unspecified; Z85.028 Personal history of other malignant neoplasm of stomach; Z85.118 Personal history of other malignant neoplasm of bronchus and lung; Z91.040 Latex allergy status; Z88.8 Allergy status to other drugs, medicaments and biological substances; Z91.09 Other allergy status, other than to drugs and biological substances
CPT/HCPCS: 36415; 73630-TC; 80048-TC; 80076-TC; 81001; 85025-TC; 87086-TC; 87186-TC; C9803; G0480; J0696; J3490